=== PATIENT | male | born 1935 | race Caucasian/White ===

== ENCOUNTER → 2019-10-29 14:33 | Outpatient (CLI) | payer MEDICARE, SELFPAY ==
--- NOTE | 2019-10-29 14:37 | CT_ITS ---
PROCEDURE: CT ABDOMEN PELVIS WO CON CLINICAL INDICATION: GROSS HEMATURIA COMPARISON: No exams were available for comparison TECHNIQUE: Axial images obtained with sagittal and coronal reformats. All CT scans at the facility use one or more dose reduction, viz: automated exposure control, ma/kV adjustment per patient size (including targeted exams where dose is matched to indication, i.e. head), or iterative reconstruction technique. FINDINGS: LOWER THORAX: There are atelectatic changes in the right lower lobe the. 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 Normal heart size. Diaphragmatic calcifications are present on the right and there is pleural thickening and calcification in the right hemithorax posteriorly. ABDOMEN & PELVIS: Post cholecystectomy change. The liver, spleen, adrenal glands, and pancreas have an unremarkable unenhanced appearance. There is nonobstructing stone versus vascular calcification in the lower pole of the left kidney at 4 mm. A small hyperdense exophytic nodules present in the superior pole of the right kidney at 5 mm. No hydronephrosis. No ureteral calculi. There is a small left-sided bladder diverticulum posterior laterally at 3 cm. There is a small umbilical hernia containing fat. No intestinal obstruction or free air. There is diverticulosis of the descending and sigmoid colon but no evidence of diverticulitis. There is a mild amount of retained colonic feces. The appendix is not clearly delineated. There is mild dilatation of the infrarenal abdominal aorta measuring up to 2.9 cm. Degenerative changes are present in the lumbar spine with mild lumbar scoliosis convex right. IMPRESSION: 1. Right-sided diaphragmatic and pleural calcification with right basilar atelectasis. 2. Nonobstructing left renal stone versus intrarenal vascular calcification. 3. 5 mm hyperdense nodule right kidney superiorly and could be due to small hyperdense cyst. Ultrasound may confirm. 4. 3 cm left-sided bladder diverticulum. 5. Other nonacute findings as described above. Or Dictated by: Prakash Walker MD 10/30/2019 06:17 Electronically signed by Prakash Walker MD in [facility] 10/30/2019 06:17
== END ==
PROVIDERS: PCP Internal Medicine Adolescent Medicine; Visit Provider Internal Medicine Adolescent Medicine
DX: R31.0 Gross hematuria (principal)
CPT/HCPCS: 74176

== ENCOUNTER → 2019-12-24 11:41 | Outpatient (CLI) | payer MEDICARE, SELFPAY ==
--- NOTE | 2019-12-24 12:00 | XR_ITS ---
PROCEDURE: XR CHEST 2V CLINICAL HISTORY: Cough, tobacco use COMPARISON: CT ABDOMEN PELVIS WO CON from 10/29/2019 FINDINGS: Prior median sternotomy. Biventricular and right atrial pacemaker is present. A stent graft is present within the proximal ascending aorta. There is increased density in the right lower lobe suggesting atelectasis or infiltrate. There is pleural thickening and pleural calcification in the right lung base is well. Right-sided diaphragmatic calcification noted. There is increased density in the left lung base felt to be related overlying pleural thickening or fat pad. No acute bony abnormalities. IMPRESSION: 1. Chronic changes with right lower lobe infiltrate with chronic right-sided pleural thickening and calcification and right-sided diaphragmatic calcification. 2. Prior median sternotomy with pacemaker present and aortic stent graft present Dictated by: Prakash Walker MD 12/24/2019 12:41 Electronically signed by Prakash Walker MD in [facility] 12/24/2019 12:41
== END ==
PROVIDERS: PCP Internal Medicine Adolescent Medicine; Visit Provider Internal Medicine Adolescent Medicine
DX: R05 Cough (principal)
CPT/HCPCS: 71046

== ENCOUNTER → 2020-01-31 17:33 | Outpatient (CLI) | payer MEDICARE, SELFPAY | PROVIDERS: Visit Provider Urology | DX: N39.0 Urinary tract infection, site not specified (principal) | CPT/HCPCS: 87086; 87088; 87186 ==

== ENCOUNTER → 2020-03-10 16:00 | Outpatient (CLI) | payer MEDICARE, SELFPAY | PROVIDERS: Visit Provider Urology | DX: R33.9 Retention of urine, unspecified (principal) | CPT/HCPCS: 87086; 87088; 87186 ==

== ENCOUNTER → 2020-07-07 16:14 | Outpatient (CLI) | payer MEDICARE, SELFPAY | PROVIDERS: Visit Provider Urology | DX: N39.0 Urinary tract infection, site not specified (principal) | CPT/HCPCS: 87086; 87088; 87186 ==

== ENCOUNTER 2020-07-28 09:50 | Emergency (ER) | payer MEDICARE, SELFPAY ==
[2020-07-28 10:03] VITALS: BP 160/65; PULSE 70; RESP 19; TEMP 36.8; O2SAT 94; BMI 29.6
[2020-07-28 10:10] VITALS: BP 160/65; PULSE 70; RESP 19; TEMP 36.8; O2SAT 94; BMI 29.5
[2020-07-28 10:36] LABS: Apearance,Urine Clear (Clear); Color,Urine Yellow (Yellow)
[2020-07-28 10:37] LABS: Protein,Urine 1+ (Negative); Specific Gravity, Urine 1.015 (1.005-1.030)
[2020-07-28 10:38] LABS: Bilirubin,Urine Negative (Negative); Blood, Urine 1+ (Negative); Glucose,Urine (UA) 1+ (Negative); Ketones,Urine Negative (Negative); Urobilinogen,Urine 1 EU/dl (0.2)
--- NOTE | 2020-07-28 10:38 | HMH.EDUTC ---
[facility] [place]ression: Complicated urinary tract infection Disposition: Home, Self-Care Condition on Discharge: Good Instructions: Urinary Tract Infection, DI for Urinary Tract Infection (UTI) Additional Instructions: Drink plenty of fluids. Take tylenol for pain or fever. Return if you begin to have difficulty breathing. Follow up with your regular doctor. GO TO THE ER FOR ANY WORSENING SYMPTOMS Prescriptions: Doxycycline Hyclate [Doxycycline 100mg Capsule] 100 mg PO Q12 10 Days #20 cap Transmission Status: Received by [facility] #[id number] Phenazopyridine HCl [Pyridium 200mg Tablet] 200 pow PO TID #6 tab Transmission Status: Received by [facility] #[id number] Referrals: Abel Thornton MD [Primary Care Provider] - Time of Disposition: 10:47 Medical Decision Making - Medical Records Medical records reviewed: No: I reviewed the patient's medical records. - Rj Inquiry Pt receiving controlled substance: No Vital Signs: 07/28/20 10:03 07/28/20 10:10 07/28/20 11:07 Temperature 98.3 F 98.3 F 98.3 F Temperature Source Oral Oral Pulse Rate 70 Pulse Rate [Left Radial] 70 70 Respiratory Rate 19 19 19 Blood Pressure 160/65 H Blood Pressure [Right Arm] 160/65 H 160/65 H Blood Pressure Mean [Right Arm] 96 96 Blood Pressure Source [Right Arm] Automatic Cuff Automatic Cuff Blood Pressure Position [Right Arm] Sitting Sitting 02 Sat by Pulse Oximetry 94 L 94 L Oxygen Delivery Method Room Air Room Air - Lab Data Lab results reviewed: Yes: I reviewed the patient's lab results. Lab Results 07/28/20 10:34: Urine Color Yellow, Urine Appearance Clear, Urine pH 7.0, Ur Specific [place] 1.015, Urine Protein 1+, Urine Glucose (UA) 1+, Urine Ketones Negative, Urine Blood 1+, Urine Nitrate Positive A, Urine Bilirubin Negative, Urine Urobilinogen 1, Ur Leukocyte Esterase 1+ A Orders (Tests/Meds): ORDERS Category Date Time Status Urine Culture Stat Micro 07/28/20 10:15 [place] [facility] [place] - General Stated complaint: kidney and bowel problems Time Seen by Provider: 07/28/20 10:38 Mode of Arrival: Ambulatory Source of Information: Patient Limitations: No Limitations Description of Symptoms (Recalled from Triage Doc. by RN): c/o constipation and kidney infection. States the burning with urination about a week ago. Tried OTC AZO for his kidneys but not help - History of Present Illness Provider Complaint: He states that for the past 3 days he has been having urinary frequency and dysuria. He has had lots of trouble recently with UTI's. He is followed by Dr. Pollard (urology). He last finished antibiotics for a uti around 1 month ago. He denies any fever or chilling. He also was c/o constipation for the past 4 days, but when he went to give a urine specimen for this visit, he had a bowel movement also. - Related Data Home Medications Medication Instructions Recorded Confirmed albuterol sulfate 90 mcg/actuation 1 inh INHALATION ONCE PRN each 11/01/19 07/07/20 breath activated powder inhaler,sensor budesonide-formoterol HFA 160 2 puff INHALATION BID 11/01/19 07/07/20 mcg-4.5 mcg/actuation aerosol inhaler dicyclomine 10 mg capsule 10 mg PO BID 11/01/19 07/07/20 dutasteride 0.5 mg capsule 0.5 mg PO DAILY 11/01/19 07/07/20 esomeprazole magnesium 40 mg 40 mg PO DAILY 11/01/19 07/07/20 capsule,delayed release famotidine 20 mg tablet 20 mg PO DAILY 11/01/19 07/07/20 ipratropium 0.5 mg-albuterol 3 mg 3 ml INHALATION Q6H PRN 11/01/19 07/07/20 (2.5 mg base)/3 mL nebulization soln montelukast 10 mg tablet 10 mg PO DAILY 11/01/19 07/07/20 nebivolol 5 mg tablet 5 mg PO DAILY 11/01/19 07/07/20 nitroglycerin 0.4 mg sublingual 0.4 mg SUBLINGUAL Q5M PRN 11/01/19 07/07/20 tablet ondansetron HCl 4 mg tablet 4 mg PO Q8H 11/01/19 07/07/20 rosuvastatin 20 mg tablet 20 mg PO DAILY 11/01/19 07/07/20 tamsulosin 0.4 mg capsule 0.4 mg PO DAILY
[2020-07-28 10:39] LABS: UTC Leukocyte Esterase,Urine 1+ (Negative); UTC Nitrate,Urine Positive (Negative)
[2020-07-28 11:07] VITALS: BP 160/65; PULSE 70; RESP 19; TEMP 36.8; O2SAT 94
== END 2020-07-28 11:11 | disposition home or self-care (01) ==
PROVIDERS: Emergency Provider Nurse Practitioner Family; PCP Emergency Medicine
DX: N30.00 Acute cystitis without hematuria (principal); K59.00 Constipation, unspecified; I10 Essential (primary) hypertension; Z95.0 Presence of cardiac pacemaker; Z79.899 Other long term (current) drug therapy; Z88.1 Allergy status to other antibiotic agents; Z88.2 Allergy status to sulfonamides; Z88.8 Allergy status to other drugs, medicaments and biological substances
CPT/HCPCS: G0463; 81003; 87086; 87088; 87186; 99201

== ENCOUNTER → 2020-10-24 15:26 | Outpatient (CLI) | payer MEDICARE, SELFPAY ==
[2020-10-24 16:53] LABS: Basophils % 0.4 % (0.1-2.0); Eosinophils # 0.2 K/mm3 (0.0-0.4); Eosinophils % 3.5 % (0.1-12.0); Hematocrit 37.5 % (42.0-52.0); Hemoglobin 11.8 g/dL (14.1-18.0); Lymphocytes # 1.5 K/mm3 (0.7-4.5); Lymphocytes % 23.2 % (10-50); Mean Corpuscular HGB Conc 31.4 g/dL (31.8-35.4); Mean Corpuscular Hemoglobin 30.3 pg (27.0-31.2); Mean Corpuscular Volume 96.5 fl (80-94); Mean Platelet Volume 9.3 fl (7.4-10.4); Monocytes # 0.8 K/mm3 (0.1-1.0); Neutrophils % 60.8 % (37.0-80.0); Platelet Count 155 K/mm3 (142-424); Red Blood Count 3.88 M/mm3 (4.60-6.20); Red Cell Distribution Width 13.2 % (11.5-17.5); White Blood Count 6.5 K/mm3 (4.8-10.8)
[2020-10-24 16:56] LABS: Alanine Aminotransferase 13 U/L (12-78); Albumin Level 3.9 g/dl (3.5-5.0); Albumin/Globulin Ratio 1.3 (1.1-1.8); Alkaline Phosphatase 51 U/L (38-126); Anion Gap 6.5 mEq/L (5-15); Aspartate Amino Transferase 27 U/L (17-59); Bilirubin,Total 0.7 mg/dl (0.2-1.3); Blood Urea Nitrogen 14 mg/dl (9-20); Calcium 9.4 mg/dl (8.4-10.2); Carbon Dioxide 32 mmol/L (22.0-30.0); Chloride 103 mmol/L (98-107); Chol/HDL Ratio 2.4 (1-3.5); Cholesterol 129 mg/dl (140-200); Estimated Glomerular Filt Rate 63 ml/min (>60); GFR (African American) 77 ML/MIN (>60); Globulin 2.9 g/dL (1.3-3.2); Glucose 98 mg/dl (74-100); HDL Cholesterol 54 mg/dl (40-60); Potassium 4.5 mmoL/L (3.5-5.1); Sodium 137 mmol/L (136-145); Total Protein,Serum 6.8 g/dl (6.3-8.2); Triglycerides 139 mg/dl (30-150); VLDL Cholesterol 28 mg/dL (0-40)
[2020-10-24 17:07] LABS: Direct LDL Cholesterol 40.85 mg/dL (100-129)
[2020-10-24 17:28] LABS: Thyroid Stimulating Hormone 0.98 uIU/mL (0.465-4.68)
[2020-10-27 10:22] LABS: Prostate Specific Ag Screen 0.4 ng/ml (0.0-4.0)
== END ==
PROVIDERS: Visit Provider Family Medicine
DX: L60.3 Nail dystrophy (principal); R39.9 Unspecified symptoms and signs involving the genitourinary system; Z12.5 Encounter for screening for malignant neoplasm of prostate; E66.3 Overweight; Z79.899 Other long term (current) drug therapy; Z68.28 Body mass index [BMI] 28.0-28.9, adult
CPT/HCPCS: 80053; 80061; 84436; 84443; 85025; 87086; 87088; 87186; G0103

== ENCOUNTER → 2021-01-19 13:52 | Outpatient (CLI) | payer MEDICARE, SELFPAY | PROVIDERS: Visit Provider Family Medicine | DX: N39.0 Urinary tract infection, site not specified (principal) | CPT/HCPCS: 87086; 87088; 87186 ==

== ENCOUNTER → 2021-01-27 14:29 | Outpatient (CLI) | payer MEDICARE, SELFPAY ==
--- NOTE | 2021-01-27 14:29 | US_ITS ---
PROCEDURE: US KIDNEY CLINICAL INDICATION: COMPARISON: No exams were available for comparison FINDINGS: The right kidney is [id number]. No hydronephrosis, cortical thinning, or renal mass or perinephric fluid collection is evident. The left kidney is [id number]. No hydronephrosis, cortical thinning, or renal mass or perinephric fluid collection is evident. IMPRESSION: Unremarkable bilateral renal ultrasound Dictated by: Prakash Walker MD 01/27/2021 18:14 Prakash Walker MD in [facility] 01/27/2021 18:14
== END ==
PROVIDERS: PCP Family Medicine; Visit Provider Family Medicine
DX: N39.0 Urinary tract infection, site not specified (principal)
CPT/HCPCS: 76770

== ENCOUNTER 2021-04-04 04:33 | Emergency (ER) | payer MEDICARE, SELFPAY ==
[2021-04-04 04:49] VITALS: BP 142/70; PULSE 70; RESP 18; TEMP 36.6; O2SAT 97; BMI 29.6
--- NOTE | 2021-04-04 05:15 | PC.NURSE ---
I placed a 14 fr Coude catheter in pt after prepping urethra with a Urojet, a great amount of resistance was met when reaching the prostate, after getting around the prostate the pt had about 400cc output of clear pale urine, 5cc of saline was placed in balloon. Pt tolerated procedure well.
[2021-04-04 05:25] LABS: Microscopic, Urine URINE MICROSCOPIC (MICROSCOPIC)
[2021-04-04 05:30] LABS: Appearance,Urine CLEAR (Clear); Bilirubin,Urine Negative (Negative); Blood, Urine 1+ (Negative); Color,Urine YELLOW (Yellow); Glucose,Urine (UA) Negative (Negative); Ketones,Urine Negative (Negative); Leukocyte Esterase,Urine Negative (Negative); Nitrate,Urine Negative (Negative); Protein,Urine Negative (Negative); Urobilinogen,Urine 0.2 EU/dl (0.2)
[2021-04-04 05:31] VITALS: BP 149/74; PULSE 70; RESP 18; O2SAT 95
[2021-04-04 05:34] LABS: Amorphous Sediment,Urine Trace /lpf; WBC,Urine Occasional #/hpf (0-3)
--- NOTE | 2021-04-04 05:35 | HMH.EDGENADL ---
ED Disposition Clinical Impression: Acute retention of urine BPH (benign prostatic hyperplasia) Qualifiers: Lower urinary tract symptom presence: symptoms present Lower urinary tract symptom detail: urinary retention Qualified Code(s): N40.1 - Benign prostatic hyperplasia with lower urinary tract symptoms; R33.8 - Other retention of urine Disposition: Home, Self-Care Condition on Discharge: Good Instructions: DI for Urinary Tract Infection (UTI), DI for Urinary Tract Infection in Children Additional Instructions: Follow-up with urology Tuesday. Leave catheter in place until you see the urologist. Return to the emergency department for any new or worsening symptoms. Referrals: Ronny Vazquez MD [Primary Care Provider] - Neil Pollard MD [Staff Physician] - - Critical Care Critical Care Time: No Attestation: On 04/04/21, the high probability of a clinically significant, sudden or life threatening deterioration of the following system(s) required my full and direct attention, intervention and personal management. The time I documented below is in addition to time spent performing reported procedures but includes the following listed in this critical care notation. Medical Decision Making - Rj Inquiry Pt receiving controlled substance: No Vital Signs: 04/04/21 04:49 04/04/21 05:31 04/04/21 06:12 Temperature 97.9 F Temperature Source Oral Pulse Rate 70 70 Pulse Rate [Right] 70 Respiratory Rate 18 18 17 Blood Pressure 149/74 H 158/78 H Blood Pressure [Right Arm] 142/70 H Blood Pressure Mean [Right Arm] 94 Blood Pressure Source Automatic Cuff Automatic Cuff Blood Pressure Source [Right Arm] Automatic Cuff Blood Pressure Position Supine Supine Blood Pressure Position [Right Arm] Sitting 02 Sat by Pulse Oximetry 97 95 95 Oxygen Delivery Method Room Air Room Air Room Air - Lab Data Lab Results 04/04/21 05:15: Urine Color Yellow, Urine Appearance Clear, Urine pH 6.0, Ur Specific [place] 1.010, Urine Protein Negative, Urine Glucose (UA) Negative, Urine Ketones Negative, Urine Blood 1+, Urine Nitrate Negative, Urine Bilirubin Negative, Urine Urobilinogen 0.2, Ur Leukocyte Esterase Negative, Urine RBC 5-10, Urine WBC Occasional, Amorphous Sediment Trace Medical Decision Narrative: The patient is an 85-year-old male who presents to the emergency department with lower abdominal pain and difficulty urinating. Differential diagnosis includes urinary retention, UTI, enlarged prostate. Given this plan to obtain urinalysis and place catheter. Urinalysis showed no evidence of infection. According to nurse catheter placement was difficult likely related to enlarged prostate however the catheter was able to be placed and he had over 450 mL of urine. On reassessment the patient had complete resolution of symptoms. He had no tenderness to palpation of his abdomen. He felt comfortable with discharge at this time. He will leave the catheter in place and follow-up with urology on Tuesday. He was given return precautions and discharge. General Adult HPI - General Chief complaint: Urogenital-Male Stated complaint: Can't urinate Time Seen by Provider: 04/04/21 04:50 Mode of Arrival: Ambulatory Source of Information: Patient Limitations: No Limitations Description of Symptoms (Recalled from ER Triage Doc. by RN): Pt states he has not urinated for 8-10 hours and feel full. Pt has hx of Prostate problems and see's Dr Pollard on occation. - History of Present Illness HPI narrative: An 85-year-old male presents to the emergency department with difficulty urinating. The patient has known enlarged prostate and reports that he sees urology here. He reports that he has not urinated in about 8 to 10 hours and reports that even then he was having just dribbling. He reports suprapubic abdominal pain and back pain. He reports last night he was having similar pain and thought he was constipated so gave himself an e
[2021-04-04 06:12] VITALS: BP 158/78; PULSE 70; RESP 17; O2SAT 95
[2021-04-04 07:50] VITALS: BP 152/78; PULSE 74; RESP 16; TEMP 36.6; O2SAT 96
--- NOTE | 2021-04-04 07:50 | PC.NURSE ---
leg bag applied
== END 2021-04-04 07:51 | disposition home or self-care (01) ==
PROVIDERS: Emergency Provider Emergency Medicine; PCP Family Medicine
DX: N40.1 Benign prostatic hyperplasia with lower urinary tract symptoms (principal); R33.8 Other retention of urine; K21.9 Gastro-esophageal reflux disease without esophagitis; J44.9 Chronic obstructive pulmonary disease, unspecified; I25.10 Atherosclerotic heart disease of native coronary artery without angina pectoris; I10 Essential (primary) hypertension; Z95.0 Presence of cardiac pacemaker; Z87.891 Personal history of nicotine dependence; Z88.2 Allergy status to sulfonamides; Z88.8 Allergy status to other drugs, medicaments and biological substances
CPT/HCPCS: 81001; 99283

== ENCOUNTER → 2021-04-15 10:15 | Outpatient (CLI) | payer MEDICARE, SELFPAY | PROVIDERS: Visit Provider Urology | DX: R33.9 Retention of urine, unspecified (principal); Z01.812 Encounter for preprocedural laboratory examination; Z20.822 Contact with and (suspected) exposure to COVID-19; U07.1 COVID-19 | CPT/HCPCS: U0003 ==

== ENCOUNTER → 2021-04-27 15:47 | Outpatient (CLI) | payer MEDICARE, MEDICAID, SELFPAY | PROVIDERS: Visit Provider Family Medicine | DX: R33.8 Other retention of urine (principal) | CPT/HCPCS: 87086; 87186 ==

== ENCOUNTER → 2021-06-02 15:22 | Outpatient (CLI) | payer MEDICARE, SELFPAY | LOC: LAB 15:22 → LAB.DROPOF 15:25 | PROVIDERS: Visit Provider Urology | DX: N39.0 Urinary tract infection, site not specified (principal); B95.2 Enterococcus as the cause of diseases classified elsewhere | CPT/HCPCS: 87086; 87186 ==

== ENCOUNTER 2021-06-22 08:22 | Day surgery (SDC) | payer MEDICARE, MEDICAID, SELFPAY ==
[2021-06-16 09:41] VITALS: BMI 28.1
[2021-06-22 08:39] VITALS: BP 140/67; PULSE 70; RESP 18; TEMP 36.3; O2SAT 93
[2021-06-22 10:01] VITALS: BP 159/78; PULSE 70; RESP 18; TEMP 36.5; O2SAT 95
--- NOTE | 2021-06-22 11:07 | HMH.OPNOTE ---
Date of procedure: 06/22/21 Pre-op Diagnosis:: Recurrent urinary tract infections Post-op Diagnosis:: Recurring urinary tract infection/BPH with obstruction Procedure performed:: Cystoscopy Surgeon:: Neil Pollard MD Anesthesia: local Estimated blood loss (mL): 0 Clinical Note:: 85-year-old white male with recurring urinary tract infections. Operative findings:: Cystoscopy reveals no evidence of urethral strictures. Prostatic urethra shows trilobar hyperplasia the bladder has chronic obstructive changes with severe trabeculation. There was sediment in the bladder base. Operative note:: Patient taken to the cystoscopy suite after informed consent was obtained. On the stretcher he was prepped draped in the standard surgical fashion and 2% lidocaine placed into the urethra. After 5 minutes the clamp was removed and the flexible cystoscope introduced into the urethral meatus. The scope passed to the prostatic urethra which showed trilobar hyperplasia. The bladder was entered and examined in a systematic fashion. There was sediment in the base of the bladder and the bladder showed severe trabeculation throughout the base of the bladder. There is no evidence of stones or diverticula. The ureteral orifices in their normal anatomic position with clear efflux of urine. The scope removed patient tolerated the procedure well. We discussed the findings in recovery room. We discussed operative intervention with TURP versus nonsurgical measures including prophylactic antibiotics. Patient is elderly and with some comorbidities. We decided upon prophylactic antibiotics and a prescription for cefdinir for 1 week was given and we will then continue prophylactic nitrofurantoin 50 mg a day. Patient is to return if he should have any urinary symptoms. Condition: stable Disposition: same day Specimens:: None Complications:: None
== END 2021-06-22 10:11 | disposition home or self-care (01) ==
LOC: OUTP 08:25
PROVIDERS: PCP Family Medicine; Visit Provider Urology
DX: N40.1 Benign prostatic hyperplasia with lower urinary tract symptoms (principal); R33.9 Retention of urine, unspecified; R35.0 Frequency of micturition; E11.9 Type 2 diabetes mellitus without complications; E78.5 Hyperlipidemia, unspecified; I25.10 Atherosclerotic heart disease of native coronary artery without angina pectoris; Z95.1 Presence of aortocoronary bypass graft; Z88.2 Allergy status to sulfonamides; Z88.8 Allergy status to other drugs, medicaments and biological substances; Z88.1 Allergy status to other antibiotic agents; Z79.899 Other long term (current) drug therapy; Z87.440 Personal history of urinary (tract) infections
CPT/HCPCS: 52000

== ENCOUNTER → 2021-09-21 13:23 | Outpatient (CLI) | payer MEDICARE, SELFPAY | PROVIDERS: PCP Family Medicine; Visit Provider Internal Medicine Pulmonary Disease | DX: R06.09 Other forms of dyspnea (principal); G47.34 Idiopathic sleep related nonobstructive alveolar hypoventilation | CPT/HCPCS: 94762 ==

== ENCOUNTER → 2021-10-01 12:17 | Outpatient (CLI) | payer MEDICARE, SELFPAY ==
[2021-10-01 13:00] LABS: Chloride 103 mmol/L (98-107); Potassium 4.6 mmoL/L (3.5-5.1); Sodium 133 mmol/L (136-145)
[2021-10-01 13:03] LABS: Alanine Aminotransferase 14 U/L (12-78); Albumin/Globulin Ratio 1.4 (1.1-1.8); Alkaline Phosphatase 52 U/L (38-126); Anion Gap 8.6 mEq/L (5-15); Aspartate Amino Transferase 31 U/L (17-59); Bilirubin,Total 1.2 mg/dl (0.2-1.3); Blood Urea Nitrogen 16 mg/dl (9-20); Calcium 8.9 mg/dl (8.4-10.2); Carbon Dioxide 26 mmol/L (22.0-30.0); Estimated Glomerular Filt Rate 71 ml/min (>60); GFR (African American) 86 ML/MIN (>60); Globulin 2.9 g/dL (1.3-3.2); Glucose 86 mg/dl (74-100); Iron 133 ug/dL (49-181); Total Protein,Serum 6.9 g/dl (6.3-8.2)
== END ==
PROVIDERS: Visit Provider Family Medicine
DX: E78.00 Pure hypercholesterolemia, unspecified (principal); D64.9 Anemia, unspecified; N39.0 Urinary tract infection, site not specified; B95.2 Enterococcus as the cause of diseases classified elsewhere
CPT/HCPCS: 80053; 83540; 84443; 87086; 87088; 87186

== ENCOUNTER → 2022-02-11 09:27 | Outpatient (CLI) | payer MEDICARE, SELFPAY ==
--- NOTE | 2022-02-11 09:32 | XR_ITS ---
FINAL REPORT CLINICAL HISTORY: LUMBAGO W/ SCIATICA LT SIDE FINDINGS: LUMBAR SPINE 5 views of the lumbar spine were obtained. There is no evidence of fracture or dislocation. There is dextroscoliosis. There is moderate and severe degenerative change. There is vacuum disc phenomenon at several levels. There is a 3.5 cm abdominal aortic aneurysm. There is moderate vascular calcification. IMPRESSION: Moderate and severe degenerative change. 3.5 cm abdominal aortic aneurysm. Reviewed, Interpreted and Dictated by Scooby George III, MD Transcribed by Yola Kiarn Authenticated and [facility]
== END ==
PROVIDERS: PCP Family Medicine; Visit Provider Family Medicine
DX: M54.42 Lumbago with sciatica, left side (principal)
CPT/HCPCS: 72110

== ENCOUNTER → 2022-03-10 09:45 | Outpatient (CLI) | payer MEDICARE, SELFPAY ==
[2022-03-10 10:35] VITALS: PULSE 69; PULSE 70
[2022-03-10 11:00] VITALS: BP 155/78; PULSE 70; RESP 18; O2SAT 97
[2022-03-10 11:10] VITALS: BP 160/82; PULSE 70; RESP 22; O2SAT 96
== END ==
PROVIDERS: PCP Family Medicine; Visit Provider Internal Medicine Pulmonary Disease
DX: R06.00 Dyspnea, unspecified (principal)
CPT/HCPCS: 94060; 94618; 94640; 94727; 94729

== ENCOUNTER → 2022-05-07 17:04 | Outpatient (CLI) | payer MEDICARE, SELFPAY | PROVIDERS: Visit Provider Urology | DX: N40.1 Benign prostatic hyperplasia with lower urinary tract symptoms (principal); R33.8 Other retention of urine; B95.2 Enterococcus as the cause of diseases classified elsewhere | CPT/HCPCS: 87086; 87088; 87186 ==

== ENCOUNTER → 2022-07-23 13:36 | Outpatient (CLI) | payer MEDICARE, SELFPAY ==
--- NOTE | 2022-07-23 13:42 | XR_ITS ---
FINAL REPORT CLINICAL HISTORY: Acute cough and congestion COMPARISON: 12/24/2019 FINDINGS: A single view of the chest was obtained. The heart is enlarged. The patient is status post median sternotomy. A left subclavian pacemaker is present. There are worsening bibasilar opacities, favor atelectasis over pneumonia. There is no pneumothorax. There is no acute osseous abnormality. IMPRESSION: Worsening bibasilar opacities favored to represent atelectasis over pneumonia. Reviewed, Interpreted and Dictated by Scooby George III, MD Transcribed by Janice Zepeda Authenticated and [facility]
== END ==
PROVIDERS: PCP Family Medicine; Visit Provider Physician Assistant
DX: Z20.822 Contact with and (suspected) exposure to COVID-19 (principal)
CPT/HCPCS: 71045

== ENCOUNTER 2022-07-26 15:44 | Inpatient (IN) | payer MEDICARE, MEDICAID, SELFPAY ==
[2022-07-26] VITALS (9 sets, daily range): BP systolic 141–181; BP diastolic 78–90; PULSE 69–78; RESP 16–17; TEMP 36.6–36.8; O2SAT 92–97; BMI 28.1; BMI 27.3
--- NOTE | 2022-07-26 16:00 | XR_ITS ---
FINAL REPORT CLINICAL HISTORY: soa FINDINGS: PORTABLE CHEST Patient is status post CABG and aortic valve repair. A left subclavian pacemaker is present. There is mild cardiomegaly. The mediastinum is unremarkable. Pulmonary vascularity is normal with left lung clear. There are multifocal opacities in the right lung which may be due to a partially loculated right pleural effusion, less likely a mass. There is no pneumothorax. IMPRESSION: Right basilar opacities with differential of loculated pleural effusion versus less likely mass. Follow-up CT may be helpful to further differentiate. Reviewed, Interpreted and Dictated by Abe Andrew MD Transcribed by Yola Kiran Authenticated and [facility]
--- NOTE | 2022-07-26 16:02 | HMH.EDGENADL ---
Discharge Plan Prescriptions Prescriptions: No Action esomeprazole magnesium [Nexium] 40 mg capsule,delayed release(DR/EC) 40 mg PO DAILY nitroglycerin [Nitrostat] 0.4 mg tablet, sublingual 0.4 mg SUBLINGUAL Q5M PRN (Reason: Chest Pain) Rx Instructions: until response; do not exceed 3 doses per episode montelukast [Singulair] 10 mg tablet 10 mg PO DAILY tamsulosin 0.4 mg capsule 0.4 mg PO DAILY ondansetron HCl [Zofran] 4 mg tablet 4 mg PO Q8H ipratropium bromide 42 mcg (0.06 %) spray,non-aerosol 2 spray INTRANASAL DAILY Label Comments: USE 1 TO 2 SPRAYS IN EACH NOSTRIL EVERY 6 HOURS NEEDED fluticasone propionate 50 mcg/actuation spray,suspension 1 spray INTRANASAL DAILY Label Comments: SHAKE LIQUID AND USE 1 SPRAY IN EACH NOSTRIL TWICE DAILY azelastine 137 mcg (0.1 %) aerosol,spray 1 spray NS BID Qty: 30 3RF Rx Instructions: administer into each nostril budesonide-formoterol [Symbicort] 160-4.5 mcg/actuation HFA aerosol inhaler 2 puff INHALATION BID 90 Days Qty: 10.2 3RF albuterol sulfate 90 mcg/actuation HFA aerosol inhaler 1 inh INHALATION Q6H PRN (Reason: shortness of breath or wheezing) 90 Days Qty: 8.5 3RF cefdinir 300 mg capsule 300 mg PO BID Qty: 14 0RF nitrofurantoin macrocrystal 50 mg capsule 50 mg PO HS Qty: 90 3RF Rx Instructions: must administer with a meal/food promethazine-codeine 6.25-10 mg/5 mL syrup 5 ml PO Q4-6H PRN (Reason: cough) Qty: 118 3RF dutasteride [Avodart] 0.5 mg capsule 0.5 mg PO DAILY Qty: 90 3RF famotidine 20 mg tablet See Rx Instructions .Route .COMPLEX Qty: 90 10RF Rx Instructions: TAKE 1 TABLET BY MOUTH AT BEDTIME promethazine 25 mg tablet 25 mg PO TID PRN (Reason: nausea and vomiting) Qty: 30 3RF rosuvastatin [Crestor] 20 mg tablet 20 mg PO DAILY Qty: 90 0RF cefdinir 300 mg capsule 300 mg PO BID Qty: 14 1RF dicyclomine 10 MG capsule 10 mg PO BID PRN (Reason: STOMACH PAIN/DIARRHEA) nebivolol 2.5 MG tablet 2.5 mg PO BID Rx Instructions: TAKE 1 TABLET BY MOUTH TWICE DAILY. nitrofurantoin monohyd/m-cryst 100 MG capsule 100 mg PO Q12H Rx Instructions: must administer with a meal/food Referrals Follow up/Referrals: Provider,Referral, MD [Primary Care Provider] - See instructions Discharge ED Provider: Carlos Castillo General Adult HPI General Stated complaint: SOA Time Seen by Provider: 07/26/22 15:55 History of Present Illness HPI narrative: Patient presents complaining of 2-week history of worsening shortness of air. He has a history of COPD and historically has used oxygen at nighttime however for the last weeks has required [id number]. He denies chest pain. He has had a nonproductive cough. He denies fever he does note increased swelling to the legs and does have a history of CHF. Related Data Home Medications Medication Instructions Recorded Confirmed esomeprazole magnesium 40 mg 40 mg PO DAILY ACID REFLUX 11/01/19 07/15/22 capsule,delayed release (Nexium) montelukast 10 mg tablet 10 mg PO DAILY ALLERGIES 11/01/19 07/15/22 (Singulair) nitroglycerin 0.4 mg sublingual 0.4 mg sublingual Q5M PRN Chest 11/01/19 07/15/22 tablet (Nitrostat) Pain ondansetron HCl 4 mg tablet 4 mg PO Q8H NAUSEA/VOMITING 11/01/19 07/15/22 (Zofran) tamsulosin 0.4 mg capsule 0.4 mg PO DAILY URINATION 11/01/19 07/15/22 fluticasone propionate 50 1 spray intranasal DAILY ALLERGIES 10/08/20 07/15/22 mcg/actuation nasal spray,suspension ipratropium bromide 42 mcg (0.06 2 spray intranasal DAILY COPD 10/08/20 07/15/22 %) nasal spray dicyclomine 10 mg capsule 10 mg PO BID PRN STOMACH 06/16/21 07/15/22 PAIN/DIARRHEA nebivolol 2.5 mg tablet 2.5 mg PO BID BP 06/16/21 07/15/22 nitrofurantoin 100 mg PO Q12H BLADDER INFECTION 06/16/21 07/15/22 monohydrate/macrocrystals 100 mg PREVENTION capsule Previous
--- NOTE | 2022-07-26 16:13 | ECG_ITS ---
APPROVED REPORT Exam: Resting ECG HR:74 bpm ECG Measurements Heart Rate 74 AXES QRSd 145 QRS -73 QT 397 T 60 QTc 424 Conclusion ELECTRONIC VENTRICULAR PACEMAKER ABNORMAL RHYTHM ECG UNCONFIRMED REPORT Electronically signed by : Rajan Diamond MD 07/26/2022 21:07:29
--- NOTE | 2022-07-26 16:19 | PC.NURSE ---
Resp at bedside
[2022-07-26 16:48] LABS: Coronavirus 19, PCR Not Detected (NotDetected); Influenza A, PCR Not Detected (NotDetected); Influenza B, PCR Not Detected (NotDetected)
--- NOTE | 2022-07-26 17:06 | PC.NURSE ---
PT HAD 400CC OUT
--- NOTE | 2022-07-26 17:16 | PC.NURSE ---
rounded on pt at this time. No new needs. Pt resting in chair, updated on POC
[2022-07-26 17:18] LABS: Microscopic, Urine URINE MICROSCOPIC (MICROSCOPIC)
[2022-07-26 17:20] LABS: Alanine Aminotransferase 22 U/L (12-78); Albumin Level 3.9 g/dl (3.5-5.0); Albumin/Globulin Ratio 1.3 (1.1-1.8); Alkaline Phosphatase 94 U/L (38-126); Anion Gap 15.4 mEq/L (5-15); Aspartate Amino Transferase 34 U/L (17-59); Bilirubin,Total 0.5 mg/dl (0.2-1.3); Blood Urea Nitrogen 17 mg/dl (9-20); Calcium 9.5 mg/dl (8.4-10.2); Carbon Dioxide 30 mmol/L (22.0-30.0); Chloride 90 mmol/L (98-107); Creatinine Clearance Estimated 56 mL/min (50-200); Estimated Glomerular Filt Rate 63 ml/min (>60); GFR (African American) 77 ML/MIN (>60); Glucose 104 mg/dl (74-100); Potassium 4.4 mmoL/L (3.5-5.1); Sodium 131 mmol/L (136-145); Total Protein,Serum 6.9 g/dl (6.3-8.2)
[2022-07-26 17:24] LABS: Basophils % 0.4 % (0.1-2.0); Eosinophils # 0.1 K/mm3 (0.0-0.4); Hematocrit 32.2 % (42.0-52.0); Hemoglobin 10.3 g/dL (14.1-18.0); Lymphocytes # 1.6 K/mm3 (0.7-4.5); Lymphocytes % 17.6 % (10-50); Mean Corpuscular HGB Conc 32.1 g/dL (31.8-35.4); Mean Corpuscular Hemoglobin 30.7 pg (27.0-31.2); Mean Corpuscular Volume 95.7 fl (80-94); Mean Platelet Volume 8.4 fl (7.4-10.4); Monocytes # 0.9 K/mm3 (0.1-1.0); Monocytes % 10.6 % (1.7-9.3); Neutrophils # 6.3 K/mm3 (1.8-7.8); Neutrophils % 70.5 % (37.0-80.0); Platelet Count 223 K/mm3 (142-424); Red Blood Count 3.36 M/mm3 (4.60-6.20); Red Cell Distribution Width 13.6 % (11.5-17.5); White Blood Count 8.9 K/mm3 (4.8-10.8)
[2022-07-26 17:33] LABS: NT Pro Brain Natriuretic Pep. 2930 pg/mL (0-450)
[2022-07-26 17:34] LABS: Troponin I < 0.01 ng/ml (0.00-0.034)
[2022-07-26 17:54] LABS: Appearance,Urine CLEAR (Clear); Bilirubin,Urine Negative (Negative); Blood, Urine TRACE-I (Negative); Color,Urine YELLOW (Yellow); Glucose,Urine (UA) Negative (Negative); Ketones,Urine Negative (Negative); Leukocyte Esterase,Urine 2+ (Negative); Nitrate,Urine Negative (Negative); Protein,Urine Negative (Negative); Urobilinogen,Urine 0.2 EU/dl (0.2)
[2022-07-26 18:07] LABS: Bacteria,Urine 1+ /lpf; RBC,Urine Occasional #/hpf (0-3); WBC,Urine 20-50 #/hpf (0-3)
--- NOTE | 2022-07-26 18:42 | PC.NURSE ---
called report to [facility]
--- NOTE | 2022-07-26 19:24 | PC.NURSE ---
urinal emptied of 900ml
--- NOTE | 2022-07-26 20:35 | PC.NURSE ---
Pt arrived to floor via wheelchair @ 1957.
--- NOTE | 2022-07-26 22:30 | PC.NURSE ---
07/26/22 2230pm night watch pharmacist called regarding pt listed allergy to clarithromycin, pt not sure allergy but listed as mild, pharmacist states that there could be a cross sensitivity and to reach out to pcp for further instructions, pharmacist states that they are ok giving as long as pcp is ok with it and just watch for reactions, dr eagle was called and notified as written above, note new orders to d/c axithromycin and start levaquin 750mg iv after kidney functions levels were reviewed, tylenol was order 650mg q4h as needed for pain and fever greater than 100, repeated and verified.
[2022-07-27] VITALS (7 sets, daily range): BP systolic 113–152; BP diastolic 51–71; PULSE 70–77; RESP 16–18; TEMP 36.5–36.8; O2SAT 88–98; BMI 27.3
--- NOTE | 2022-07-27 05:55 | PC.NURSE ---
pt rested well, lung sounds diminished, 02 at 3.5L with 02 sats 96-97%, VSS, 3+ pitting edema to BLE, no acute distress, pt is alert and oriented x4.
[2022-07-27 07:26] LABS: Basophils % 0.1 % (0.1-2.0); Eosinophils % 0.5 % (0.1-12.0); Hematocrit 31.7 % (42.0-52.0); Hemoglobin 10.3 g/dL (14.1-18.0); Lymphocytes # 0.5 K/mm3 (0.7-4.5); Lymphocytes % 7.8 % (10-50); Mean Corpuscular HGB Conc 32.4 g/dL (31.8-35.4); Mean Corpuscular Hemoglobin 30.7 pg (27.0-31.2); Mean Platelet Volume 8.2 fl (7.4-10.4); Monocytes # 0.3 K/mm3 (0.1-1.0); Monocytes % 4.5 % (1.7-9.3); Neutrophils # 5.8 K/mm3 (1.8-7.8); Neutrophils % 87.2 % (37.0-80.0); Platelet Count 241 K/mm3 (142-424); Red Blood Count 3.34 M/mm3 (4.60-6.20); Red Cell Distribution Width 13.6 % (11.5-17.5); White Blood Count 6.7 K/mm3 (4.8-10.8)
[2022-07-27 07:30] LABS: MANUAL DIFFERENTIAL MANUAL DIFFERENTIAL (MANUAL DIFF)
[2022-07-27 07:36] LABS: Alanine Aminotransferase 23 U/L (12-78); Albumin Level 3.8 g/dl (3.5-5.0); Albumin/Globulin Ratio 1.2 (1.1-1.8); Alkaline Phosphatase 82 U/L (38-126); Anion Gap 19.2 mEq/L (5-15); Aspartate Amino Transferase 32 U/L (17-59); Bilirubin,Total 0.4 mg/dl (0.2-1.3); Blood Urea Nitrogen 21 mg/dl (9-20); Calcium 9.5 mg/dl (8.4-10.2); Carbon Dioxide 30 mmol/L (22.0-30.0); Chloride 88 mmol/L (98-107); Creatinine Clearance Estimated 55 mL/min (50-200); Estimated Glomerular Filt Rate 63 ml/min (>60); GFR (African American) 77 ML/MIN (>60); Globulin 3.1 g/dL (1.3-3.2); Glucose 116 mg/dl (74-100); Potassium 4.2 mmoL/L (3.5-5.1); Sodium 133 mmol/L (136-145); Total Protein,Serum 6.9 g/dl (6.3-8.2)
[2022-07-27 07:59] LABS: Lymphocytes % 8 % (10-50); Monocytes % 2 % (2-9); Neutrophils % 90 % (42-76); Total Cells Counted 100
[2022-07-27 08:00] LABS: Platelet Estimate Normal; RBC Morphology Normal
--- NOTE | 2022-07-27 08:26 | HMH.PHAINT1 ---
Pharmacy Intervention Comments: Medication reconciliation completed via external fill history, chart review, and patient interview. -Iman Santiago, PharmD Candidate 2022
--- NOTE | 2022-07-27 09:08 | EXP.HP ---
History of Present Illness *Admission Date: 07/27/22 *Reason for visit:: Increasing shortness of breath *History of present illness: Mr. Kiran is an 86-year-old male patient with a history of congestive heart failure, rheumatic fever, aortic stenosis status post TAVR in 2017, pacemaker, hyperlipidemia, asthma, GERD, peptic ulcer disease, irritable bowel syndrome, BPH, kidney disease, diverticulosis who was brought to [facility] emergency room for evaluation yesterday with progressive shortness of breath. He has been more short of breath the last 2 to 3 weeks and has been on a round of antibiotics without improvement. He has oxygen at home but only goes to 2 L/min which was not sufficient. He usually just wore oxygen at night but had to wear it continuously throughout the day. He denies having any chest pain. He had no fever. He had an occasional production with his cough. He was eating and drinking as usual. He had difficulty with ambulation due to the shortness of breath. With evaluation in the emergency room laboratory data this morning: White blood cell count is 6700 with a hemoglobin of 10.3 and hematocrit of 31.7. Sodium is 133 with a potassium of 4.2. BUN is 21 and creatinine is 1.1. BNP is 2930. Urinalysis shows trace of blood 2+ leuk esterase and 1+ bacteria with 20-50 white blood cells. COVID and flu test were negative. Chest x-ray showed right basilar opacities with differential of loculated pleural effusion versus less likely a mass. Follow-up CT might be helpful. This a.m. patient states he feels so much better. With increase in oxygen he immediately was less short of breath. He rested at intervals during the night. He has eaten a good breakfast. [facility] Medical History (Updated 07/27/22 @ 09:23 by Kathy Pulliam APRN) Arthritis GERD (gastroesophageal reflux disease) Hiatal hernia HTN (hypertension) Surgical History (Updated 07/26/22 @ 18:32 by Cate Pace RN) H/O hernia repair History of arthroplasty of right knee History of tonsillectomy Hx of cholecystectomy Family History (Updated 07/26/22 @ 18:32 by Cate Pace, GEOVANY) No significant family history Social History (Updated 07/26/22 @ 18:31 by Cate Pace RN) Smoking Status: Never smoker alcohol intake: never substance use type: denies use current occupational status: disabled Travel in the last 8 weeks: None household members: spouse housing: house current occupational exposures/hazards: No caffeine: Yes Review of Systems Constitutional Constitutional: Denies body ache(s), Denies fever(s), Denies frequent falls and Denies headache(s) Eyes Eyes: Denies change in vision ENT Ears, Nose, Mouth, and Throat: Denies otalgia, Denies headache(s) and Denies sore throat *Cardiovascular Cardiovascular: Denies chest pain and Reports dyspnea *Respiratory Respiratory: Reports change in phlegm color, Reports cough and Reports dyspnea *Gastrointestinal Gastrointestinal: Denies dyspepsia, Denies heartburn, Denies hematemesis, Denies loose stools, Denies melena, Denies nausea and Denies vomiting *Genitourinary Genitourinary: Denies difficulty urinating *Musculoskeletal Musculoskeletal: Denies abnormal gait and Reports arthralgias (Right knee) *Neurologic Neurologic: Denies abnormal gait, Denies confusion, Denies frequent falls and Denies headache(s) Psychiatric Psychiatric: Denies confusion Meds Home Medications and Allergies Home Medications Medication Instructions Recorded Confirmed Type esomeprazole magnesium 40 mg 40 mg PO DAILY ACID REFLUX 11/01/19 07/27/22 History capsule,delayed release (Nexium) montelukast 10 mg tablet 10 mg PO DAILY ALLERGIES 11/01/19 07/27/22 History (Singulair) nitroglycerin 0.4 mg sublingual 0.4 mg sublingual Q5M PRN Chest 11/01/19 07/27/22 History tablet (Nitrostat) Pain tamsulosin 0.4 mg capsule 0.4 mg PO DAILY URINATION 11/01/19 07/27/22 History fluticaso
[2022-07-27 10:09] LABS: Lactic Acid 1.1 mmol/L (0.7-2.1)
[2022-07-27 10:48] LABS: Mycoplasma Pneumo IGM (Rapid) Non-Reactive (Non-Reactiv)
--- NOTE | 2022-07-27 18:42 | PC.NURSE ---
pt has done well this shift. pt was on 2l o2 via nc and c/o of soa, increase o2 to 3l, tolerating well with no complaints. pts daughter brought home meds in, sent to pharmacy and returned back, sent home with daughter. pt has no c/o of pain or nausea this shift. no concerns voiced at this time.
[2022-07-28] VITALS (9 sets, daily range): BP systolic 119–150; BP diastolic 63–78; PULSE 70–83; RESP 16–20; TEMP 36.4–36.7; O2SAT 97–99; BMI 27.6
--- NOTE | 2022-07-28 06:44 | PC.NURSE ---
NO ACUTE CHANGES SINCE PREVIOUS ASSESSMENT. PT HAS NOT RESTED MUCH THIS SHIFT. LUNG SOUNDS ARE DIMINISHED. PT HAS C/O BEING HORT OF AIR X2 THIS SHIFT. ALBUTEROL INHALER ORDER RECEIVED PER MD PUENTES. NO C/O PAIN THIS SHIFT.
--- NOTE | 2022-07-28 08:24 | EXP.ACUTE.PN ---
Subjective *Date: 07/28/22 *Time: 09:15 Interval history: Patient states he had a horrible night. He could not breathe and had to have ox his oxygen turned up and was given nebulizer treatments. He states he feels a little bit better this morning. He is requesting his Symbicort be reordered. He has had more swelling in his legs. He did eat most of his breakfast. Medical Exam Vital signs and Labs for Last 24 Hours: Vital Signs Temp Pulse Pulse Resp BP Pulse Ox 07/28/22 05:51 77 07/28/22 05:51 82 07/28/22 05:51 97 07/28/22 04:00 97.6 F 70 20 142/78 H 99 07/28/22 00:00 97.8 F 71 20 119/69 97 07/27/22 20:00 97.8 F 70 18 125/71 97 07/27/22 15:28 98.3 F 74 17 150/71 H 98 07/27/22 11:41 77 07/27/22 11:41 75 07/27/22 11:41 88 L 07/27/22 11:35 98.2 F 73 16 152/68 H 88 L Intake and Output 07/27/22 07/28/22 07/28/22 19:59 03:59 11:59 Intake Total 600 / 840 240 / 840 Output Total 0 / 0 0 / 0 Balance 600 / 840 240 / 840 Intake: Intake, Oral Amount 600 / 840 240 / 840 Output: Output, Urine Amount 0 / 0 0 / 0 Other: Number of Unmeasured Voids 1 1 Weight 180 lb 1.883 oz 182 lb 9 oz Patient Weight 07/28/22 11:59 Weight 182 lb 9 oz Laboratory Results - last 24 hr 07/26/22 17:00: Urine Color Yellow, Urine Appearance Clear, Urine pH 6.0, Ur Specific [place] 1.010, Urine Protein Negative, Urine Glucose (UA) Negative, Urine Ketones Negative, Urine Blood Trace-i, Urine Nitrate Negative, Urine Bilirubin Negative, Urine Urobilinogen 0.2, Ur Leukocyte Esterase 2+ A, Urine RBC Occasional, Urine WBC 20-50, Ur Squamous Epith Cells 3-5, Urine Bacteria 1+ 07/27/22 09:37: Lactate 1.1 07/27/22 09:37: Mycoplasma pneumon IgM Non-reactive I & O for Labs for Last 24 Hours: Intake & Output 07/25/22 07/26/22 07/27/22 07/28/22 11:59 11:59 11:59 11:59 Intake Total 570 / 570 840 / 840 Output Total 0 / 0 0 / 0 Balance 570 / 570 840 / 840 Weight 180 lb 2 oz 182 lb 9 oz Microbiology Reports for the Last 24 Hours: Microbiology 07/26/22 17:00 Urine,Clean Catch Urine Culture - Preliminary Gram Positive Cocci 07/27/22 12:50 Sputum - Expectorated Sputum Gram Stain - Final Constitutional: Present no acute distress Respiratory: Present wheezes (Right base) Cardiac: Present Reg Rate and Rhythm GI: Present soft; Absent distention, tenderness or guarding Extremities: Present edema (Bilateral lower extremities) Skin: Present intact Assessment and Plan *Assessment and plan (1) Community acquired pneumonia: Status: Acute Category: Medical Code(s): J18.9 - Pneumonia, unspecified organism (2) Congestive heart failure: Status: Acute Category: Medical Code(s): I50.9 - Heart failure, unspecified (3) Urinary tract infection: Status: Acute Category: Medical Code(s): N39.0 - Urinary tract infection, site not specified (4) Coronary artery disease: Status: Acute Qualifiers: Associated angina: without angina Coronary Disease-Associated Artery/Lesion type: [place] artery [place] vs. transplanted heart: [place] heart Qualified Code(s): I25.10 - Atherosclerotic heart disease of [place] coronary artery without angina pectoris Category: Medical Code(s): I25.10 - Atherosclerotic heart disease of [place] coronary artery without angina pectoris (5) BPH (benign prostatic hyperplasia): Status: Acute Qualifiers: Lower urinary tract symptom detail: urinary retention Lower urinary tract symptom presence: symptoms present Qualified Code(s): N40.1 - Benign prostatic hyperplasia with lower urinary tract symptoms; R33.8 - Other retention of urine Category: Medical Code(s): N40.0 - Benign prostatic hyperplasia without lower urinary tract symptoms (6) Hyperlipidemia: Status: Acute Qualifie
--- NOTE | 2022-07-28 08:31 | CT_ITS ---
FINAL REPORT TECHNIQUE: After the administration of intravenous contrast, axial images through the chest were performed by computed tomography.This study was performed with techniques to keep radiation doses as low as reasonably achievable, (ALARA). Individualized dose reduction techniques using automated exposure control or adjustment of mA and/or kV according to the patient''s size were employed. CLINICAL HISTORY: effusion vs mass on CXR FINDINGS: There is suboptimal opacification of the vasculature. Streak artifact is seen in left upper anterior chest wall from pacemaker. Median sternotomy wires are present. There has been aortic valve replacement. There is extensive pleural calcification bilaterally, right greater than left. There is fluid loculated in the right major fissure. There is scarring at the right base. There is an aberrant right subclavian artery which is densely calcified. Limited images of the upper abdomen reveal the gallbladder to be absent. 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 Aberrant right subclavian artery. Fluid loculated in the right major fissure. Reviewed, Interpreted and Dictated by Kelvin Martell MD Transcribed by Kathy Mccauley Authenticated and [facility]
[2022-07-28 10:13] LABS: Prostate Specific Ag Screen 0.4 ng/ml (0.0-4.0)
--- NOTE | 2022-07-28 15:00 | ECG_ITS ---
APPROVED REPORT Exam: Resting ECG HR:78 bpm ECG Measurements Heart Rate 78 AXES QRSd 164 QRS -82 QT 400 T 81 QTc 434 Conclusion ELECTRONIC VENTRICULAR PACEMAKER ABNORMAL RHYTHM ECG INTERPRETATION BASED ON A DEFAULT AGE OF 40 YEARS UNCONFIRMED REPORT Electronically signed by : Rajan Diamond MD 07/29/2022 21:36:01
[2022-07-28 16:17] LABS: Creatine Kinase 144 U/L (55-170)
[2022-07-28 16:27] LABS: CKMB Relative Index 1.2 U/L (0-4.0); Creatine Kinase MB 1.7 ng/ml (0.0-2.03)
[2022-07-28 17:27] LABS: Troponin I 0.01 ng/ml (0.00-0.034)
--- NOTE | 2022-07-28 19:40 | PC.NURSE ---
PT HAS DONE WELL TODAY. PT HAD AN EPISODE OF CHEST PAIN, ELBERT NOTIFIED. EKG AND CARDIAC ENZYMES ORDERED. O2 INCREASED TO 3L, PER ELBERT, LEAVE PTS O2 ON 3L. TELE PLACED ON PT. DAUGHTER BROUGHT AN INHALERM LOCKED IN PERSONAL VEHICLE ADVISOR PTS ROOM. CB AND PERSONAL ITEMS WITHIN REACH. NO CONCERNS AT THIS TIME.
[2022-07-29] VITALS: BP 143/66; PULSE 78; RESP 14; TEMP 36.7; O2SAT 100
[2022-07-29 04:00] VITALS: BP 124/68; PULSE 70; PULSE 97; RESP 16; TEMP 36.9; O2SAT 91
[2022-07-29 08:00] VITALS: BP 173/76; PULSE 69; PULSE 72; RESP 17; TEMP 36.7; O2SAT 98
[2022-07-29 08:09] LABS: Basophils % 0.4 % (0.1-2.0); Eosinophils # 0.1 K/mm3 (0.0-0.4); Hematocrit 32.1 % (42.0-52.0); Hemoglobin 9.9 g/dL (14.1-18.0); Lymphocytes # 1.1 K/mm3 (0.7-4.5); Lymphocytes % 12.6 % (10-50); Mean Corpuscular HGB Conc 30.9 g/dL (31.8-35.4); Mean Corpuscular Hemoglobin 30.2 pg (27.0-31.2); Mean Corpuscular Volume 97.8 fl (80-94); Mean Platelet Volume 9.1 fl (7.4-10.4); Monocytes % 12.4 % (1.7-9.3); Neutrophils # 6.2 K/mm3 (1.8-7.8); Neutrophils % 73.5 % (37.0-80.0); Platelet Count 215 K/mm3 (142-424); Red Blood Count 3.29 M/mm3 (4.60-6.20); Red Cell Distribution Width 13.9 % (11.5-17.5); White Blood Count 8.4 K/mm3 (4.8-10.8)
[2022-07-29 08:10] LABS: Chloride 95 mmol/L (98-107); Sodium 130 mmol/L (136-145)
[2022-07-29 08:13] LABS: Blood Urea Nitrogen 20 mg/dl (9-20); Calcium 9.1 mg/dl (8.4-10.2); Carbon Dioxide 30 mmol/L (22.0-30.0); Creatinine Clearance Estimated 61 mL/min (50-200); Estimated Glomerular Filt Rate 71 ml/min (>60); GFR (African American) 86 ML/MIN (>60); Glucose 93 mg/dl (74-100)
--- NOTE | 2022-07-29 08:38 | EXP.ACUTE.PN ---
Subjective *Date: 07/29/22 *Time: 09:04 Interval history: Patient states he is feeling a little bit better this morning. His shortness of breath has improved and he has less wheezing. He does complain of some gas and constipation. He states he normally takes Nexium at home and probiotics. He has not had a bowel movement in about 4 days. Medical Exam Vital signs and Labs for Last 24 Hours: Vital Signs Temp Pulse Pulse Resp BP Pulse Ox 07/29/22 08:00 98.1 F 69 17 173/76 H 98 07/29/22 04:00 70 07/29/22 04:00 98.4 F 97 H 16 124/68 91 L 07/29/22 00:00 98.0 F 78 14 143/66 H 100 07/28/22 20:00 97 07/28/22 20:00 97.5 F L 74 16 150/74 H 97 07/28/22 20:00 70 07/28/22 18:50 98 07/28/22 16:00 98.1 F 74 18 141/71 H 99 07/28/22 12:00 97.7 F 80 20 132/69 97 07/28/22 11:26 83 07/28/22 11:26 78 07/28/22 11:26 98 Intake and Output 07/28/22 07/29/22 07/29/22 19:59 03:59 11:59 Intake Total 720 / 1020 300 / 1020 Output Total 1200 / 1570 370 / 1570 0 / 1570 Balance -480 / -550 -370 / -550 300 / -550 Intake: Intake, Oral Amount 720 / 1020 300 / 1020 Output: Output, Urine Amount 1200 / 1570 370 / 1570 0 / 1570 Other: Number of Unmeasured Voids 1 Laboratory Results - last 24 hr 07/27/22 09:37: PSA Screen 0.4 07/28/22 15:38: Total Creatine Kinase 144, CK-MB (CK-2) 1.7, CK-MB (CK-2) Rel Index 1.2, Troponin I 0.01 07/29/22 07:15: WBC 8.4 D, RBC 3.29 L, Hgb 9.9 L, Hct 32.1 L, MCV 97.8 H, MCH 30.2, MCHC 30.9 L, RDW 13.9, Plt Count 215, MPV 9.1, Neut % (Auto) 73.5, Lymph % (Auto) 12.6, [place] % (Auto) 12.4 H, Eos % (Auto) 1.0, Baso % (Auto) 0.4, Neut # (Auto) 6.2, Lymph # (Auto) 1.1, [place] # (Auto) 1.0, Eos # (Auto) 0.1, Baso # (Auto) 0.0 07/29/22 07:15: Sodium 130 L, Potassium 4.0, Chloride 95 L, Carbon Dioxide 30, Anion Gap 9.0, BUN 20, Creatinine 1.00, Estimated Creat Clear 61, Estimated GFR 71, Est GFR ( Amer) 86, Glucose 93, Calcium 9.1 I & O for Labs for Last 24 Hours: Intake & Output 07/26/22 07/27/22 07/28/22 07/29/22 11:59 11:59 11:59 11:59 Intake Total 570 / 570 1200 / 1200 1020 / 1020 Output Total 0 / 0 0 / 0 1570 / 1570 Balance 570 / 570 1200 / 1200 -550 / -550 Weight 180 lb 2 oz 182 lb 9 oz Microbiology Reports for the Last 24 Hours: Microbiology 07/26/22 17:00 Urine,Clean Catch Urine Culture - Preliminary Gram Positive Cocci Constitutional: Present no acute distress Respiratory: Present wheezes (Much improved); Absent rales Cardiac: Present Reg Rate and Rhythm GI: Present soft and distention; Absent tenderness or guarding Extremities: Present edema (Improved) Assessment and Plan *Assessment and plan (1) Community acquired pneumonia: Status: Acute Category: Medical Code(s): J18.9 - Pneumonia, unspecified organism (2) Congestive heart failure: Status: Acute Category: Medical Code(s): I50.9 - Heart failure, unspecified (3) Urinary tract infection: Status: Acute Category: Medical Code(s): N39.0 - Urinary tract infection, site not specified (4) Coronary artery disease: Status: Acute Qualifiers: Associated angina: without angina Coronary Disease-Associated Artery/Lesion type: [place] artery [place] vs. transplanted heart: [place] heart Qualified Code(s): I25.10 - Atherosclerotic heart disease of [place] coronary artery without angina pectoris Category: Medical Code(s): I25.10 - Atherosclerotic heart disease of [place] coronary artery without angina pectoris (5) BPH (benign prostatic hyperplasia): Status: Acute Qualifiers: Lower urinary tract symptom detail: urinary retention Lower urinary tract symptom presence: symptoms present Qualified Code(s): N40.1 - Benign prostatic hyperplasia with lower urinary tract symptoms; R33.8 - Other retention of urine Ca
--- NOTE | 2022-07-29 11:06 | PC.NURSE ---
room air saturation 92%
--- NOTE | 2022-07-29 11:15 | CARE MANAGER ---
Addendum entered by Vivien Martin RN 07/29/22 12:41: Per Luda Duggan, patient's O2 saturations dropped to 87% with ambulation in [place]. 3L continuous O2 ordered through [facility]. Portable will be delivered prior to [facility] transport home. Original Note: Patient planned for discharge home today. He did not qualify for continuous home O2, per Luda Duggan his O2 saturations are 92% at rest as well as up and ambulating around the room. Patient will need a ride home. I will call [facility] and schedule a bus ride home.
[2022-07-29 11:37] VITALS: BP 154/80; PULSE 70; RESP 17; TEMP 36.6; O2SAT 98
--- NOTE | 2022-07-29 11:55 | P.CONPHA_ITS ---
Pharmacy Intervention Comments: Discharge counseling completed at bedside with the patient. Discussed new medications (levofloxacin) and continued medications at home. Overviewed indication for levofloxacin and possible side effects/mitigation strategies. Patient verbalized his understanding and has no questions or concerns at this t lilia.
--- NOTE | 2022-07-29 11:56 | PC.NURSE ---
room air saturation after ambulation 87%
--- NOTE | 2022-07-29 12:16 | PC.NURSE ---
Patient's RA saturation was 92% at rest. With ambulation, saturation dropped to 87% and 2L O2 per NC placed on patient and saturation returned to 92%
--- NOTE | 2022-08-04 08:54 | EXP.DC.SUM ---
General Admission date:: 07/26/22 Discharge date: 07/29/22 HPI HPI HPI: Mr. Kiran is an 86-year-old male patient with a history of congestive heart failure, rheumatic fever, aortic stenosis status post TAVR in 2017, pacemaker, hyperlipidemia, asthma, GERD, peptic ulcer disease, irritable bowel syndrome, BPH, kidney disease, diverticulosis who was brought to [facility] emergency room for evaluation yesterday with progressive shortness of breath. He has been more short of breath the last 2 to 3 weeks and has been on a round of antibiotics without improvement. He has oxygen at home but only goes to 2 L/min which was not sufficient. He usually just wore oxygen at night but had to wear it continuously throughout the day. He denies having any chest pain. He had no fever. He had an occasional production with his cough. He was eating and drinking as usual. He had difficulty with ambulation due to the shortness of breath. With evaluation in the emergency room laboratory data this morning: White blood cell count is 6700 with a hemoglobin of 10.3 and hematocrit of 31.7. Sodium is 133 with a potassium of 4.2. BUN is 21 and creatinine is 1.1. BNP is 2930. Urinalysis shows trace of blood 2+ leuk esterase and 1+ bacteria with 20-50 white blood cells. COVID and flu test were negative. Chest x-ray showed right basilar opacities with differential of loculated pleural effusion versus less likely a mass. Follow-up CT might be helpful. This a.m. patient states he feels so much better. With increase in oxygen he immediately was less short of breath. He rested at intervals during the night. He has eaten a good breakfast. Hospital Course Hospital Course Hospital Course: The patient was admitted and routine pneumonia orders consisting of duo nebs and antibiotics were ordered. Some of his home medications were reordered. It was felt he had community-acquired pneumonia along with a UTI. By 07/28/2022, he had had a horrible night. He had an episode where he could not breathe. His oxygen was increased and he was given nebulizer treatments. By the morning of 07/28/2022, he felt a little bit better. He was requesting his Symbicort be reordered. He did have more swelling in his legs. His chest x-ray showed a loculated pleural effusion versus a mass, therefore CT scan was ordered. Lovenox was added for DVT prophylaxis. By 07/29/2022, he was feeling better and his shortness of breath and wheezing had improved. He had some gas and constipation and had not had a bowel movement in 4 days. He was started on simethicone and stool softeners. His chest CT showed extensive pleural calcification bilaterally which was possibly related to prior asbestos exposure. There was fluid loculated in the right major fissure. The patient was stable to be discharged home with supplemental oxygen at 3 L/min and will follow-up outpatient. Of note, his sputum culture showed normal giovanni and his blood culture showed no growth. His urine culture did grow Enterococcus faecalis and it was sensitive to ampicillin, daptomycin, penicillin, and vancomycin. Exam Data for Last 24 hours Vital signs and Labs for Last 24 Hours: Temp Pulse Resp BP Pulse Ox 97.8 F 70 17 154/80 H 98 07/29/22 11:37 07/29/22 11:37 07/29/22 11:37 07/29/22 11:37 07/29/22 11:37 Narrative: Constitutional Constitutional: no acute distress and thin *Routine HEENT Exam Head: Present normocephalic and atraumatic Eye: Present PERRL; Absent conjunctival icterus, scleral injection or conjunctivae pink ENT: Present mucous membranes moist and oropharynx clear *Routine Neck Exam Neck: Present supple; Absent carotid bruit, lymphadenopathy or thyromegaly *Routine Respiratory Exam Respiratory: Present diminished air movement *Routine Cardiovascular Exam Cardiovascular: Present RRR and ectopic *Routine Abdominal Exam Abdominal: Present soft and normoactive bowel sounds; Absent tenderness or
== END 2022-07-29 18:25 | disposition home or self-care (01) | DRG 194 ==
LOC: ER 17:47 → 2ND 19:23
PROVIDERS: Physician Assistant; Admitting Provider Family Medicine; Emergency Provider Emergency Medicine; Visit Provider Family Medicine
DX: J18.9 Pneumonia, unspecified organism (principal); J44.0 Chronic obstructive pulmonary disease with (acute) lower respiratory infection; N39.0 Urinary tract infection, site not specified; I25.10 Atherosclerotic heart disease of native coronary artery without angina pectoris; N40.1 Benign prostatic hyperplasia with lower urinary tract symptoms; E78.5 Hyperlipidemia, unspecified; Z99.81 Dependence on supplemental oxygen; Z95.0 Presence of cardiac pacemaker; I50.9 Heart failure, unspecified; Z87.891 Personal history of nicotine dependence; N40.0 Benign prostatic hyperplasia without lower urinary tract symptoms; B95.2 Enterococcus as the cause of diseases classified elsewhere; K59.00 Constipation, unspecified; R33.8 Other retention of urine; I11.0 Hypertensive heart disease with heart failure
CPT/HCPCS: 36415; 71045; 71260; 80048; 80053; 81001; 82550; 82553; 83605; 83880; 84484; 85007; 85025; 86738; 87040; 87070; 87086; 87088; 87186; 87205; 93005; 94640; 94761; 99285; G0103; C9803; J0456; J0696; J1956; Q9967; U0003; U0005

== ENCOUNTER → 2023-01-06 12:39 | Outpatient (CLI) | payer MEDICARE, SELFPAY ==
--- NOTE | 2023-01-06 12:49 | XR_ITS ---
FINAL REPORT CLINICAL HISTORY: LT HIP PAIN COMPARISON: None FINDINGS: LEFT HIP: Two views of the left hip demonstrate no acute fracture or dislocation. The joint spaces appear normal. The visualized bony structures are well aligned. No soft tissue abnormality is seen. IMPRESSION: No acute bony abnormality. Reviewed, Interpreted and Dictated by Abe Andrew MD Transcribed by Vanessa Solis Authenticated and [facility]
== END ==
PROVIDERS: PCP Family Medicine; Visit Provider Family Medicine
DX: M25.552 Pain in left hip (principal)
CPT/HCPCS: 73502

== ENCOUNTER → 2023-05-31 16:15 | Outpatient (CLI) | payer MEDICARE, SELFPAY ==
[2023-05-31 14:12] LABS: Basophils % 0.2 % (0.1-2.0); Eosinophils # 0.2 K/mm3 (0.0-0.4); Eosinophils % 2.3 % (0.1-12.0); Hematocrit 37.8 % (42.0-52.0); Lymphocytes # 1.6 K/mm3 (0.7-4.5); Lymphocytes % 26.2 % (10-50); Mean Corpuscular HGB Conc 31.7 g/dL (31.8-35.4); Mean Corpuscular Hemoglobin 30.7 pg (27.0-31.2); Mean Corpuscular Volume 96.8 fl (80-94); Mean Platelet Volume 8.9 fl (7.4-10.4); Monocytes # 0.8 K/mm3 (0.1-1.0); Monocytes % 13.1 % (1.7-9.3); Neutrophils # 3.6 K/mm3 (1.8-7.8); Neutrophils % 58.1 % (37.0-80.0); Platelet Count 148 K/mm3 (142-424); Red Cell Distribution Width 13.5 % (11.5-17.5); White Blood Count 6.3 K/mm3 (4.8-10.8)
[2023-05-31 14:40] LABS: Alanine Aminotransferase 19 U/L (12-78); Albumin Level 4.4 g/dl (3.5-5.0); Albumin/Globulin Ratio 1.4 (1.1-1.8); Alkaline Phosphatase 58 U/L (38-126); Anion Gap 11.8 mEq/L (5-15); Aspartate Amino Transferase 28 U/L (17-59); Bilirubin,Total 1.1 mg/dl (0.2-1.3); Blood Urea Nitrogen 21 mg/dl (9-20); Calcium 9.8 mg/dl (8.4-10.2); Carbon Dioxide 33 mmol/L (22.0-30.0); Chloride 98 mmol/L (98-107); Chol/HDL Ratio 2.2 (1-3.5); Cholesterol 141 mg/dl (140-200); Estimated Glomerular Filt Rate 57 ml/min (>60); GFR (African American) 69 ML/MIN (>60); Globulin 3.1 g/dL (1.3-3.2); Glucose 91 mg/dl (74-100); HDL Cholesterol 63 mg/dl (40-60); Potassium 4.8 mmoL/L (3.5-5.1); Sodium 138 mmol/L (136-145); Total Protein,Serum 7.5 g/dl (6.3-8.2); Triglycerides 62 mg/dl (30-150); VLDL Cholesterol 12 mg/dL (0-40)
[2023-05-31 14:51] LABS: Direct LDL Cholesterol 59.83 mg/dL (100-129)
[2023-05-31 15:01] LABS: Free T4 (Free Thyroxine) 1.28 ng/dl (0.78-2.19)
[2023-05-31 15:14] LABS: Thyroid Stimulating Hormone 0.97 uIU/mL (0.465-4.68)
[2023-05-31 15:49] LABS: Vitamin B12 909 pg/mL (239-931)
[2023-05-31 15:59] LABS: Folate > 20.00 ng/mL
[2023-05-31 16:17] LABS: Iron 81 ug/dL (49-181)
[2023-05-31 16:26] LABS: Total Iron Binding Capacity 310 ug/dL (261-462)
[2023-05-31 16:53] LABS: Ferritin 70.7 ng/ml (17.9-464)
== END ==
PROVIDERS: PCP Internal Medicine; Visit Provider Internal Medicine
DX: I25.10 Atherosclerotic heart disease of native coronary artery without angina pectoris (principal); Z00.00 Encounter for general adult medical examination without abnormal findings; E78.5 Hyperlipidemia, unspecified; D64.9 Anemia, unspecified; Z87.891 Personal history of nicotine dependence; I10 Essential (primary) hypertension
CPT/HCPCS: 80053; 80061; 82607; 82728; 82746; 83540; 83550; 84439; 84443; 85025

== ENCOUNTER → 2023-06-15 14:51 | Outpatient (CLI) | payer MEDICARE, SELFPAY | PROVIDERS: PCP Internal Medicine; Visit Provider Internal Medicine | DX: R30.0 Dysuria (principal); B95.2 Enterococcus as the cause of diseases classified elsewhere | CPT/HCPCS: 87086 ==

== ENCOUNTER → 2023-08-10 10:24 | Outpatient (CLI) | payer MEDICARE, SELFPAY ==
[2023-08-10 17:15] LABS: Adenovirus,PCR Not Detected (NotDetected); Coronavirus 19, PCR Not Detected (NotDetected); Coronavirus 229E Not Detected (NotDetected); Coronavirus NL63 Not Detected (NotDetected); Coronavirus OC43 Not Detected (NotDetected); Coronovirus HKU1,PCR Not Detected (NotDetected); Human Metapneumovirus Not Detected (NotDetected); Influenza A, PCR Not Detected (NotDetected); Influenza AH1, 2009 Not Detected (NotDetected); Influenza AH1, PCR Not Detected (NotDetected); Influenza AH3,PCR Not Detected (NotDetected); Influenza B, PCR Not Detected (NotDetected); Parainfluenza 1, PCR Not Detected (NotDetected); Parainfluenza 2, PCR Not Detected (NotDetected); Parainfluenza 3, PCR Not Detected (NotDetected); Parainfluenza 4, PCR Not Detected (NotDetected); Respiratory Syncytial Virus Not Detected (NotDetected); Rhinovirus/Enterovirus Not Detected (NotDetected)
== END ==
PROVIDERS: PCP Internal Medicine; Visit Provider Internal Medicine
DX: J01.90 Acute sinusitis, unspecified (principal); J34.89 Other specified disorders of nose and nasal sinuses; R51.9 Headache, unspecified; R05.8 Other specified cough
CPT/HCPCS: 87581; 87632; 87635; 87798

== ENCOUNTER 2023-08-25 14:07 | Emergency (ER) | payer MEDICARE, SELFPAY ==
[2023-08-25] VITALS (9 sets, daily range): BP systolic 142–181; BP diastolic 71–93; PULSE 66–96; RESP 12–20; TEMP 36.7; O2SAT 85–99; BMI 27.3
--- NOTE | 2023-08-25 14:07 | ECG_ITS ---
APPROVED REPORT Exam: Resting ECG HR:70 bpm ECG Measurements Heart Rate 70 AXES QRSd 157 QRS -76 QT 471 T 239 QTc 491 Conclusion ELECTRONIC VENTRICULAR PACEMAKER ABNORMAL RHYTHM ECG UNCONFIRMED REPORT Electronically signed by : Rajan Diamond MD 08/26/2023 07:47:46
--- NOTE | 2023-08-25 14:23 | XR_ITS ---
FINAL REPORT CLINICAL HISTORY: chest pain, shortness of air former smoker of 45 years FINDINGS: A single view of the chest was obtained. There is mild cardiomegaly. The patient is status post median sternotomy. A left-sided pacemaker is present. There is fluid in the minor fissure. Scarring or atelectasis is seen in the right lung base. There is a small right pleural effusion. There is no pneumothorax. IMPRESSION: Small right pleural effusion extending into the minor fissure. Scarring or atelectasis at the right lung base. Reviewed, Interpreted and Dictated by Kelvin Martell MD Transcribed by Janice Zepeda Authenticated and . [facility]
[2023-08-25 14:32] LABS: Coronavirus 19, PCR Not Detected (NotDetected); Influenza A, PCR Not Detected (NotDetected); Influenza B, PCR Not Detected (NotDetected)
[2023-08-25 14:33] LABS: Chloride 99 mmol/L (98-107); Potassium 4.7 mmoL/L (3.5-5.1); Sodium 136 mmol/L (136-145)
[2023-08-25 14:35] LABS: Alanine Aminotransferase 29 U/L (12-78); Aspartate Amino Transferase 36 U/L (17-59); Blood Urea Nitrogen 20 mg/dl (9-20); Creatinine Clearance Estimated 44 mL/min (50-200); Estimated Glomerular Filt Rate 52 ml/min (>60); GFR (African American) 63 ML/MIN (>60)
[2023-08-25 14:36] LABS: Albumin Level 4.3 g/dl (3.5-5.0); Albumin/Globulin Ratio 1.4 (1.1-1.8); Alkaline Phosphatase 59 U/L (38-126); Anion Gap 12.7 mEq/L (5-15); Calcium 9.3 mg/dl (8.4-10.2); Carbon Dioxide 29 mmol/L (22.0-30.0); Glucose 93 mg/dl (74-100); Total Protein,Serum 7.3 g/dl (6.3-8.2)
[2023-08-25 14:41] LABS: Basophils % 0.3 % (0.1-2.0); Eosinophils # 0.1 K/mm3 (0.0-0.4); Eosinophils % 1.3 % (0.1-12.0); Hematocrit 33.7 % (42.0-52.0); Hemoglobin 10.9 g/dL (14.1-18.0); Lymphocytes # 1.1 K/mm3 (0.7-4.5); Lymphocytes % 17.8 % (10-50); Mean Corpuscular HGB Conc 32.3 g/dL (31.8-35.4); Mean Corpuscular Volume 99.3 fl (80-94); Mean Platelet Volume 8.9 fl (7.4-10.4); Monocytes # 0.6 K/mm3 (0.1-1.0); Monocytes % 10.4 % (1.7-9.3); Neutrophils # 4.3 K/mm3 (1.8-7.8); Neutrophils % 70.3 % (37.0-80.0); Platelet Count 135 K/mm3 (142-424); Red Cell Distribution Width 13.8 % (11.5-17.5); White Blood Count 6.1 K/mm3 (4.8-10.8)
[2023-08-25 14:45] LABS: NT Pro Brain Natriuretic Pep. 4400 pg/mL (0-450)
[2023-08-25 14:48] LABS: Troponin I 0.02 ng/ml (0.00-0.034)
--- NOTE | 2023-08-25 15:20 | [facility].EDCP ---
Discharge Plan Disposition Patient Disposition: Still a Patient Prescriptions Prescriptions: New cefdinir 300 mg capsule 300 mg PO BID 10 Days Qty: 20 0RF No Action esomeprazole magnesium [Nexium] 40 mg capsule,delayed release(DR/EC) 40 mg PO DAILY montelukast [Singulair] 10 mg tablet 10 mg PO DAILY tamsulosin 0.4 mg capsule 0.4 mg PO DAILY fluticasone propionate 50 mcg/actuation spray,suspension 1 spray INTRANASAL BID Patient Comments: SHAKE LIQUID AND USE 1 SPRAY IN EACH NOSTRIL TWICE DAILY albuterol sulfate 90 mcg/actuation HFA aerosol inhaler 1 inh INHALATION Q6H PRN (Reason: shortness of breath or wheezing) 90 Days Qty: 8.5 3RF furosemide 20 mg tablet 20 mg PO DAILY Patient Comments: TAKE 1 TABLET BY MOUTH DAILY (DME) Savanah Addison Lg Mask Spacer See Rx Instructions .ROUTE .MEDSUPPLY Qty: 1 Patient Comments: USE 1 SPACER DIRECTED Rx Instructions: As directed nebivolol 2.5 mg tablet 2.5 mg PO DAILY Patient Comments: TAKE 1 TABLET BY MOUTH TWICE DAILY IN THE MORNING AND EVENING guaifenesin 1,200 mg tablet extended release 12hr 1,200 mg PO BID Qty: 30 2RF rosuvastatin [Crestor] 20 mg tablet 20 mg PO DAILY Qty: 90 1RF benzonatate 100 mg capsule PO TID PRN (Reason: cough) Patient Comments: TAKE 1 CAPSULE BY MOUTH THREE TIMES DAILY NEEDED FOR COUGH nitroglycerin [Nitrostat] 0.4 mg tablet, sublingual 0.4 mg SUBLINGUAL Q5M PRN (Reason: Chest Pain) Qty: 20 2RF Rx Instructions: until response; do not exceed 3 doses per episode Spiriva Respimat 1.25 mcg/actuation mist See Rx Instructions .ROUTE .COMPLEX Qty: 4 0RF Dose Instruction: INHALE 2 PUFFS BY MOUTH DAILY Rx Instructions: INHALE 2 PUFFS BY MOUTH DAILY dicyclomine 10 mg capsule 10 mg PO BID PRN (Reason: STOMACH PAIN/DIARRHEA) Rx Instructions: 1-2 caps po q 6hrs prn dutasteride [Avodart] 0.5 mg capsule 0.5 mg PO DAILY budesonide-formoterol [Symbicort] 160-4.5 mcg/actuation HFA aerosol inhaler 2 puff INHALATION BID famotidine 20 mg tablet 20 mg PO HS Rx Instructions: TAKE 1 TABLET BY MOUTH AT BEDTIME ferrous sulfate [FeroSul] 325 mg (65 mg iron) tablet 325 mg PO DAILY Patient Comments: TAKE 1 TABLET BY MOUTH DAILY Referrals Follow up/Referrals: Eleazar Gallardo DO [Primary Care Provider] - See instructions Eleazar Mayer MD [Staff Physician] - See instructions Clinical Impressions Clinical Impression: Chest pain, Acute UTI Discharge ED Provider: Kathe Odell HPI <Kathe Odell MD - Last Filed: 08/25/23 15:39> General Chief Complaint: Shortness of Breath/Dyspnea Stated Complaint: Weakness/CP Time Seen by Provider: 08/25/23 14:12 Mode of Arrival: Ambulatory Source of Information: Patient Limitations: No Limitations Description of Symptoms (Recalled from ER Triage Doc. by RN): pt presents with c/o shortness of breath, increased urine output, and chest pain. pt reports chest pain intermittent since yesterday. shortness of air ongoing for approx 1 week, and increased urine output began last night. History of Present Illness HPI narrative: This 87-year-old male with a history of prior open heart surgery, arthritis, hypertension who wears up to 3 L of oxygen as needed at home and always wears it at night presents to the ER with 1 week of cough, shortness of breath, arm pain. He states the symptoms are mostly intermittent but have been more persistent recently. He states he has been wearing his oxygen at home regularly because he has not felt well unless he is on it. He denies any recent swelling of his feet or ankles but states he has not been taking his diuretic. He denies any fevers, chills, but does state he has been having dysuria and urinary frequency and believes he has a urinary tract infection. He has not seen his primary care physician for these complaints. Related Data Home Medications Medication Instructions Recorded Confirmed esomeprazole magnesium 40 mg 40 mg PO DAILY ACID REFLUX 11/01/19 08/10/23 capsule,delayed release (Nexium) montelukast 10 mg tablet 10 mg PO DAILY ALLERGIES 11/01/19 08/10/23 (Singulair) tamsulosin 0.4 mg capsule 0.4 mg PO DAILY URINATION 11/01/19 08/10/23 budesonide-formoterol HFA 160 2 puff inhalation BID COPD 07/27/22 08/10/23 mcg-4.5 mcg/actuation aerosol inhaler (Symbicort) dutasteride 0.5 mg capsule 0.5 mg PO DAILY urinary retention 07/27/22 08/10/23 (Avodart) dicyclomine 10 mg capsule 10 mg PO BID PRN STOMACH 04/27/23 08/10/23 PAIN/DIARRHEA famotidine 20 mg tablet 20 mg PO HS Acid Reflux 04/27/23 08/10/23 ferrous sulfate 325 mg (65 mg 325 mg PO DAILY Supplement 04/27/23 08/10/23 iron) tablet (FeroSul) fluticasone propionate 50 1 spray intranasal BID ALLERGIES 04/27/23 08/10/23 mcg/actuation nasal spray,suspension furosemide 20 mg tablet 20 mg PO DAILY 04/27/23 08/10/23 inhalat.spacing dev,large mask #1 ea 04/27/23 08/10/23 ([facility] with Large Mask) nebivolol 2.5 mg tablet 2.5 mg PO DAILY 05/31/23 08/10/23 benzonatate 100 mg capsule mg PO TID PRN cough 08/10/23 08/10/23 Previous Rx's Medication Instructions Recorded albuterol sulfate 90 mcg/actuation 1 inh inhalation Q6H PRN shortness 03/16/22 aerosol inhaler of breath or wheezing 90 days #8.5 grams guaifenesin 1,200 mg tablet, 1,200 mg PO BID #30 tabs 07/05/23 extended release 12 hr nitroglycerin 0.4 mg sublingual 0.4 mg sublingual Q5M PRN Chest 07/25/23 tablet (Nitrostat) Pain #20 tabs rosuvastatin 20 mg tablet (Crestor) 20 mg PO DAILY High cholesterol 07/28/23 #90 tabs tiotropium bromide 1.25 See Rx Instructions .Route 08/12/23 mcg/actuation mist for inhalation .COMPLEX #4 grams (Spiriva Respimat) cefdinir 300 mg capsule 300 mg PO BID 10 days #20 caps 08/25/23 Allergies Allergy/AdvReac Type Severity Reaction Status Date / Time atorvastatin [From Lipitor] Allergy Intermediate muscle Verified 08/25/23 14:23 soreness dexlansoprazole Allergy Intermediate Verified 08/25/23 14:23 [From Dexilant] niacin Allergy Intermediate Verified 08/25/23 14:23 omeprazole [From Zegerid] Allergy Intermediate Verified 08/25/23 14:23 sodium bicarbonate Allergy Intermediate Verified 08/25/23 14:23 [From Zegerid] albuterol [From Combivent] Allergy Mild Verified 08/25/23 14:23 amoxicillin [From Prevpac] Allergy Mild Verified 08/25/23 14:23 azelastine [From Astepro] Allergy Mild Verified 08/25/23 14:23 baclofen Allergy Mild Verified 08/25/23 14:23 bisoprolol Allergy Mild Verified 08/25/23 14:23 carvedilol Allergy Mild Verified 08/25/23 14:23 clarithromycin [From Prevpac] Allergy Mild Verified 08/25/23 14:23 clopidogrel [From Plavix] Allergy Mild Verified 08/25/23 14:23 fish oil Allergy Mild Verified 08/25/23 14:23 fluticasone Allergy Mild Verified 08/25/23 14:23 [From Advair Diskus] Hydantoins Allergy Mild Verified 08/25/23 14:23 hydrocodone Allergy Mild Verified 08/25/23 14:23 ipratropium [From Combivent] Allergy Mild Verified 08/25/23 14:23 lansoprazole [From Prevpac] Allergy Mild Verified 08/25/23 14:23 loratadine Allergy Mild Verified 08/25/23 14:23 metoprolol Allergy Mild Verified 08/25/23 14:23 ranolazine [From Ranexa] Allergy Mild very sick Verified 08/25/23 14:23 salmeterol Allergy Mild Verified 08/25/23 14:23 [From Advair Diskus] Sulfa (Sulfonamide Allergy Mild Verified 08/25/23 14:23 Antibiotics) tramadol Allergy Mild Verified 08/25/23 14:23 aspirin Allergy bleeding Verified 08/25/23 14:23 azithromycin Allergy Verified 08/25/23 14:23 cephalexin Allergy Verified 08/25/23 14:23 ciprofloxacin Allergy Verified 08/25/23 14:23 clavulanic acid Allergy Verified 08/25/23 14:23 [From Augmentin] formoterol [From Dulera] Allergy Verified 08/25/23 14:23 metronidazole Allergy Verified 08/25/23 14:23 mometasone furoate Allergy Verified 08/25/23 14:23 [From Dulera] pilocarpine Allergy Verified 08/25/23 14:23 ramipril [From Altace] Allergy Verified 08/25/23 14:23 sulfamethoxazole Allergy Verified 08/25/23 14:23 [From Bactrim] trimethoprim [From Bactrim] Allergy Verified 08/25/23 14:23 fluticasone furoate AdvReac Mild Dizziness Verified 08/25/23 14:23 [From Trelegy Ellipta] lisinopril AdvReac Mild Verified 08/25/23 14:23 umeclidinium AdvReac Mild Dizziness Verified 08/25/23 14:23 [From Trelegy Ellipta] vilanterol AdvReac Mild Dizziness Verified 08/25/23 14:23 [From Trelegy Ellipta] motilium Allergy Intermediate Uncoded 08/10/23 13:13 PFS <Kathe Odell MD - Last Filed: 08/25/23 15:39> [facility] Disclaimer: The information contained in this section may have been updated after the patient was seen, as this information can be updated by other users. Medical History Acquired hallux valgus of both feet Acquired hammer toes of both feet Actinic keratosis Acute retention of urine Arthritis Callus of foot Complicated urinary tract infection Diabetic foot GERD (gastroesophageal reflux disease) Hiatal hernia HTN (hypertension) Inguinal hernia Keratosis Onychodystrophy Onychomycosis Overweight with body mass index (BMI) 25.0-29.9 Prostatitis Surgical History H/O hernia repair History of arthroplasty of right knee History of coronary artery bypass graft History of tonsillectomy Hx of cholecystectomy Family History Other No significant family history Social History Smoking Status: Former smoker tobacco type: cigarettes years smoked: 46 alcohol intake: never substance use type: denies use current occupational status: disabled Travel in the last 8 weeks: None household members: spouse housing: house current occupational exposures/hazards: No caffeine: Yes <Kathe Odell MD - Last Filed: 08/25/23 15:39> ROS Obtained: Yes All systems reviewed & no additional complaints except as documented Constitutional Constitutional: Denies chills, Denies fever(s), Denies headache(s) and Denies weakness Eyes Eyes: Denies change in vision ENT Ears, Nose, Mouth, and Throat: Denies dizziness, Denies headache(s), Denies nasal congestion and Denies sore throat Cardiovascular Cardiovascular: Reports chest pain, Reports dyspnea and Denies leg edema Respiratory Respiratory: Reports cough and Reports dyspnea Gastrointestinal Gastrointestingal: Denies constipation, diarrhea, nausea or vomiting Genitourinary Male Genitourinary: Reports urinary frequency and Reports other (Painful urination) Musculoskeletal Musculoskeletal: Denies arthralgias, Denies myalgias, Denies numbness and Denies tingling Integumentary/Breasts Skin/Breast: Denies change in pigmentation Neurologic Neurologic: Denies dizziness, Denies headache(s), Denies numbness, Denies tingling and Denies weakness Physical Exam <Kathe Odell MD - Last Filed: 08/25/23 15:39> General General appearance: alert and in no apparent distress Head Head exam: atraumatic and normocephalic Eye Eye exam: Present PERRL and EOMI ENT ENT exam: Present mucous membranes moist Neck Neck exam: Present normal inspection and full ROM Chest Chest inspection: Present symmetric chest wall rise Respiratory Respiratory exam: Present normal lung sounds bilaterally and other (Saturating 89% on room air, saturating 93 to 95% on 1 L nasal cannula); Absent respiratory distress, wheezes or stridor Cardiovascular Cardiovascular exam: Present regular rate and normal rhythm Abdominal Exam Abdominal exam: Present soft; Absent distention, tenderness, guarding or rebound Extremities Exam Extremities exam: Present full ROM Neurological Exam Neurological exam: Present alert and oriented X3; Absent motor sensory deficit Psychiatric Psychiatric exam: Present normal affect and normal mood Skin Skin exam: Present warm and dry HEART Score <Kahte Odell MD - Last Filed: 08/25/23 15:39> HEART Score HEART Score assessment performed?: Yes History (anamnesis): Moderately suspicious ECG: Non-specific disturbance Age: >65 years Risk factors: Atherosclerosis history Troponin: </= normal limit HEART Score: 6 <Meet Moses MD - Last Filed: 08/25/23 17:57> HEART Score HEART Score: 6 Critical Care <Kathe Odell MD - Last Filed: 08/25/23 15:39> Critical Care Time Critical Care Time: No Medical Decision Making <Kathe Odell MD - Last Filed: 08/25/23 15:39> Rj Inquiry Pt receiving controlled substance: No Vital Signs Vital Signs: 08/25/23 14:08 08/25/23 14:15 08/25/23 14:31 Temperature 98.0 F Temperature Source Oral Pulse Rate 71 70 Pulse Rate [Left Radial] 70 Respiratory Rate 20 12 17 Blood Pressure 142/71 H Blood Pressure [Right Arm] 164/88 H Blood Pressure Mean 104 Blood Pressure Mean [Right Arm] 113 02 Sat by Pulse Oximetry 85 L 99 95 Oxygen Delivery Method Room Air Nasal Cannula Oxygen Flow Rate (LPM) 1 08/25/23 15:00 08/25/23 15:30 08/25/23 16:30 Temperature Temperature Source Pulse Rate 70 70 67 Pulse Rate [Left Radial] Respiratory Rate 17 20 18 Blood Pressure 145/73 H 155/83 H 167/86 H Blood Pressure [Right Arm] Blood Pressure Mean 108 107 113 Blood Pressure Mean [Right Arm] 02 Sat by Pulse Oximetry 96 96 97 Oxygen Delivery Method Nasal Cannula Room Air Oxygen Flow Rate (LPM) 1 08/25/23 17:00 Temperature Temperature Source Pulse Rate 70 Pulse Rate [Left Radial] Respiratory Rate 17 Blood Pressure 168/85 H Blood Pressure [Right Arm] Blood Pressure Mean 112 Blood Pressure Mean [Right Arm] 02 Sat by Pulse Oximetry 98 Oxygen Delivery Method Nasal Cannula Oxygen Flow Rate (LPM) 1 Lab Data Labs: Lab Results 08/25/23 14:11: WBC 6.1, RBC 3.40 L, Hgb 10.9 L, Hct 33.7 L, MCV 99.3 H, MCH 32.0 H, MCHC 32.3, RDW 13.8, Plt Count 135 L, MPV 8.9, Neut % (Auto) 70.3, Lymph % (Auto) 17.8, Harris % (Auto) 10.4 H, Eos % (Auto) 1.3, Baso % (Auto) 0.3, Neut # (Auto) 4.3, Lymph # (Auto) 1.1, Harris # (Auto) 0.6, Eos # (Auto) 0.1, Baso # (Auto) 0.0, Sodium 136, Potassium 4.7, Chloride 99, Carbon Dioxide 29, Anion Gap 12.7, BUN 20, Creatinine 1.30 H, Estimated Creat Clear 44, Estimated GFR 52 L, Est GFR ( Amer) 63, Glucose 93, Calcium 9.3, Total Bilirubin 1.0, AST 36, ALT 29, Alkaline Phosphatase 59, Troponin I 0.02, NT-Pro-B Natriuret Pep 4400 H, Total Protein 7.3, Albumin 4.3, Globulin 3.0, Albumin/Globulin Ratio 1.4, SARS-CoV-2 (PCR) Not detected, Influenza A Untype (PCR) Not detected, Influenza Type B (PCR) Not detected 08/25/23 15:40: Urine Color Yellow, Urine Appearance Cloudy, Urine pH 6.0, Ur Specific Spencer 1.010, Urine Protein Trace, Urine Glucose (UA) Negative, Urine Ketones Negative, Urine Blood 2+, Urine Nitrate Negative, Urine Bilirubin Negative, Urine Urobilinogen 0.2, Ur Leukocyte Esterase 3+ A, Urine RBC 3-5, Urine WBC Tntc, Ur Squamous Epith Cells Occasional, Urine Bacteria 1+ 08/25/23 17:19: Troponin I < 0.01 08/25/23 14:11 08/25/23 14:11 Response Orders (Tests/Meds): ED MEDICATIONS Generic Name Dose Route Start Last Admin Trade Name Freq PRN Reason Stop Dose Admin Sodium Chloride 10 ml 08/25/23 15:44 Sodium Chloride 0.9% 10ml Flush Syringe IV 09/24/23 15:43 NEEDED PRN Maintain IV Site Discontinued Medications Generic Name Dose Route Start Last Admin Trade Name Freq PRN Reason Stop Dose Admin Cefdinir 300 mg 08/25/23 16:22 08/25/23 16:27 Cefdinir 300mg Capsule PO 08/25/23 16:23 300 mg ONCE ONE Administration ORDERS Category Date Time Status XR chest portable Stat Exams 08/25/23 14:23 Completed Brain Natriuretic Peptide Stat Lab 08/25/23 14:11 Completed Complete Blood Count Auto Diff Stat Lab 08/25/23 14:11 Completed Comprehensive Metabolic Panel Stat Lab 08/25/23 14:11 Completed Rapid PCR Covid and Flu A/B Stat Lab 08/25/23 14:11 Completed Troponin I Q3H Lab 08/25/23 17:19 Completed Troponin I Q3H Lab 08/25/23 20:30 Ordered Troponin I Stat Lab 08/25/23 14:11 Completed Urinalysis and Microscopic Stat Lab 08/25/23 15:40 Completed Urine Culture Stat Micro 08/25/23 15:40 Received ECG initial Besson Routine Y 08/25/23 14:07 Completed MDM Narrative Medical Decision Narrative: In summary, this 87year old male presents to the emergency department today with chest pain, shortness of breath, cough, dysuria, urinary frequency. On initial evaluation patient is hemodynamically stable and afebrile, however he is hypoxic on room air and is requiring nasal cannula at rest, cardiopulmonary exam reassuring. Differential diagnosis includes but is not limited to ACS, fluid overload, pulmonary edema, pleural effusion, pneumonia, urinary tract infection, pneumothorax. Based on these concerns, I ordered cardiac workup, BNP, chest x-ray, urine studies. ECG personally interpreted demonstrates paced rhythm, rate 70, QRS duration 157, borderline wide, no STEMI, EKG does have different QRS morphology in lead V1 and V2 compared to prior EKG performed in June 2022, nonspecific at this time. Labs personally reviewed demonstrate CBC with no leukocytosis, mild anemia with hemoglobin 10.9 as present, CMP with normal sodium, potassium, chloride, patient's creatinine is elevated at 1.30, back in May his creatinine was 1.20, this is not a significant change, BNP is newly elevated at 4400, most recent comparison is from June 2022 when it was 2930. Patient's initial troponin is 0.02, second troponin pending. XR personally interpreted demonstrates abnormality in the right lung which was present on previous chest x-ray from June 2022 which I reviewed, patient does not have obvious lobar infiltrate but does have blunting of the left costophrenic angle, likely a small effusion, see radiology read for final interpretation. Patient placed in ED observation at 1535 pending repeat troponin and urinalysis which will determine disposition. Patient handed off to Dr. Moses for continued management and disposition. <Meet Moses MD - Last Filed: 08/25/23 17:57> Vital Signs Vital Signs: 08/25/23 14:08 08/25/23 14:15 08/25/23 14:31 Temperature 98.0 F Temperature Source Oral Pulse Rate 71 70 Pulse Rate [Left Radial] 70 Respiratory Rate 20 12 17 Blood Pressure 142/71 H Blood Pressure [Right Arm] 164/88 H Blood Pressure Mean 104 Blood Pressure Mean [Right Arm] 113 02 Sat by Pulse Oximetry 85 L 99 95 Oxygen Delivery Method Room Air Nasal Cannula Oxygen Flow Rate (LPM) 1 08/25/23 15:00 08/25/23 15:30 08/25/23 16:30 Temperature Temperature Source Pulse Rate 70 70 67 Pulse Rate [Left Radial] Respiratory Rate 17 20 18 Blood Pressure 145/73 H 155/83 H 167/86 H Blood Pressure [Right Arm] Blood Pressure Mean 108 107 113 Blood Pressure Mean [Right Arm] 02 Sat by Pulse Oximetry 96 96 97 Oxygen Delivery Method Nasal Cannula Room Air Oxygen Flow Rate (LPM) 1 08/25/23 17:00 Temperature Temperature Source Pulse Rate 70 Pulse Rate [Left Radial] Respiratory Rate 17 Blood Pressure 168/85 H Blood Pressure [Right Arm] Blood Pressure Mean 112 Blood Pressure Mean [Right Arm] 02 Sat by Pulse Oximetry 98 Oxygen Delivery Method Nasal Cannula Oxygen Flow Rate (LPM) 1 Lab Data Lab results reviewed: Yes I reviewed the patient's lab results. Labs: Lab Results 08/25/23 14:11: WBC 6.1, RBC 3.40 L, Hgb 10.9 L, Hct 33.7 L, MCV 99.3 H, MCH 32.0 H, MCHC 32.3, RDW 13.8, Plt Count 135 L, MPV 8.9, Neut % (Auto) 70.3, Lymph % (Auto) 17.8, Harris % (Auto) 10.4 H, Eos % (Auto) 1.3, Baso % (Auto) 0.3, Neut # (Auto) 4.3, Lymph # (Auto) 1.1, Harris # (Auto) 0.6, Eos # (Auto) 0.1, Baso # (Auto) 0.0, Sodium 136, Potassium 4.7, Chloride 99, Carbon Dioxide 29, Anion Gap 12.7, BUN 20, Creatinine 1.30 H, Estimated Creat Clear 44, Estimated GFR 52 L, Est GFR ( Amer) 63, Glucose 93, Calcium 9.3, Total Bilirubin 1.0, AST 36, ALT 29, Alkaline Phosphatase 59, Troponin I 0.02, NT-Pro-B Natriuret Pep 4400 H, Total Protein 7.3, Albumin 4.3, Globulin 3.0, Albumin/Globulin Ratio 1.4, SARS-CoV-2 (PCR) Not detected, Influenza A Untype (PCR) Not detected, Influenza Type B (PCR) Not detected 08/25/23 15:40: Urine Color Yellow, Urine Appearance Cloudy, Urine pH 6.0, Ur Specific Spencer 1.010, Urine Protein Trace, Urine Glucose (UA) Negative, Urine Ketones Negative, Urine Blood 2+, Urine Nitrate Negative, Urine Bilirubin Negative, Urine Urobilinogen 0.2, Ur Leukocyte Esterase 3+ A, Urine RBC 3-5, Urine WBC Tntc, Ur Squamous Epith Cells Occasional, Urine Bacteria 1+ 08/25/23 17:19: Troponin I < 0.01 Response Orders (Tests/Meds): ED MEDICATIONS Generic Name Dose Route Start Last Admin Trade Name Freq PRN Reason Stop Dose Admin Sodium Chloride 10 ml 08/25/23 15:44 Sodium Chloride 0.9% 10ml Flush Syringe IV 09/24/23 15:43 NEEDED PRN Maintain IV Site Discontinued Medications Generic Name Dose Route Start Last Admin Trade Name Freq PRN Reason Stop Dose Admin Cefdinir 300 mg 08/25/23 16:22 08/25/23 16:27 Cefdinir 300mg Capsule PO 08/25/23 16:23 300 mg ONCE ONE Administration ORDERS Category Date Time Status XR chest portable Stat Exams 08/25/23 14:23 Completed Brain Natriuretic Peptide Stat Lab 08/25/23 14:11 Completed Complete Blood Count Auto Diff Stat Lab 08/25/23 14:11 Completed Comprehensive Metabolic Panel Stat Lab 08/25/23 14:11 Completed Rapid PCR Covid and Flu A/B Stat Lab 08/25/23 14:11 Completed Troponin I Q3H Lab 08/25/23 17:19 Completed Troponin I Q3H Lab 08/25/23 20:30 Ordered Troponin I Stat Lab 08/25/23 14:11 Completed Urinalysis and Microscopic Stat Lab 08/25/23 15:40 Completed Urine Culture Stat Micro 08/25/23 15:40 Received ECG initial [place] Routine Y 08/25/23 14:07 Completed MDM Narrative Medical Decision Narrative: In summary, this 87year old male presents to the emergency department today with chest pain, shortness of breath, cough, dysuria, urinary frequency. On initial evaluation patient is hemodynamically stable and afebrile, however he is hypoxic on room air and is requiring nasal cannula at rest, cardiopulmonary exam reassuring. Differential diagnosis includes but is not limited to ACS, fluid overload, pulmonary edema, pleural effusion, pneumonia, urinary tract infection, pneumothorax. Based on these concerns, I ordered cardiac workup, BNP, chest x-ray, urine studies. ECG personally interpreted demonstrates paced rhythm, rate 70, QRS duration 157, borderline wide, no STEMI, EKG does have different QRS morphology in lead V1 and V2 compared to prior EKG performed in June 2022, nonspecific at this time. Labs personally reviewed demonstrate CBC with no leukocytosis, mild anemia with hemoglobin 10.9 as present, CMP with normal sodium, potassium, chloride, patient's creatinine is elevated at 1.30, back in May his creatinine was 1.20, this is not a significant change, BNP is newly elevated at 4400, most recent comparison is from June 2022 when it was 2930. Patient's initial troponin is 0.02, second troponin pending. XR personally interpreted demonstrates abnormality in the right lung which was present on previous chest x-ray from June 2022 which I reviewed, patient does not have obvious lobar infiltrate but does have blunting of the left costophrenic angle, likely a small effusion, see radiology read for final interpretation. Patient placed in ED observation at 1535 pending repeat troponin and urinalysis which will determine disposition. Patient handed off to Dr. Moses for continued management and disposition. This is Dr. Moses took over care from Dr. Odell pending second troponin. Urinalysis was positive for urinary tract infection test dose of cefdinir was given in the emergency department given his extensive list of allergies but he states that most of those are not true allergies and that he will take what ever we prescribed. He had no side effects from the cefdinir in the emergency department and a prescription was sent to his pharmacy regarding this. No evidence of sepsis. This will be treated as a complicated urinary tract infection he has been advised to follow-up with his primary care doctor regarding culture results etc. Serial troponins are negative EKG I personally interpreted which shows a ventricular paced rhythm cannot rule out ischemia. 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 He is aware and agreeable to this plan.
--- NOTE | 2023-08-25 15:33 | PC.NURSE ---
pt up to restroom, trying to obtain urine specimen.
[2023-08-25 15:44] LABS: Microscopic, Urine URINE MICROSCOPIC (MICROSCOPIC)
[2023-08-25 15:47] LABS: Appearance,Urine CLOUDY (Clear); Bilirubin,Urine Negative (Negative); Blood, Urine 2+ (Negative); Color,Urine YELLOW (Yellow); Glucose,Urine (UA) Negative (Negative); Ketones,Urine Negative (Negative); Leukocyte Esterase,Urine 3+ (Negative); Nitrate,Urine Negative (Negative); Protein,Urine TRACE (Negative); Urobilinogen,Urine 0.2 EU/dl (0.2)
[2023-08-25 16:03] LABS: WBC,Urine TNTC #/hpf (0-3)
[2023-08-25 16:04] LABS: Bacteria,Urine 1+ /lpf; Squamous Epithelial Cell,Urine Occasional #/hpf (0-5)
[2023-08-25] MEDS: CEFDINIR 300MG CAPSULE 300 MG PO (16:27)
--- NOTE | 2023-08-25 16:46 | PC.NURSE ---
pt ambulated to bathroom with minimal assistance. pt ambulated back to bed. pt hooked back up to monitors and call blankenship placed on pts lap. no needs voiced at this time. updated pt on POC.
--- NOTE | 2023-08-25 17:20 | PC.NURSE ---
second troponin pulled from pts line and sent to lab. no needs voiced at this time, call light within reach.
[2023-08-25 17:49] LABS: Troponin I < 0.01 ng/ml (0.00-0.034)
--- NOTE | 2023-08-27 09:00 | PC.NURSE ---
pt calls and reports itching after taking cefdinir. has taken benadryl without relief. spoke with dr bond, rx changed to cipro. pt reports he is able to tolerate cipro. rx sent electronically to [facility] per dr bond
== END 2023-08-25 18:16 | disposition still patient (30) ==
PROVIDERS: Emergency Provider Emergency Medicine; PCP Internal Medicine
DX: R07.9 Chest pain, unspecified (principal); N39.0 Urinary tract infection, site not specified; R06.02 Shortness of breath; I10 Essential (primary) hypertension; Z87.891 Personal history of nicotine dependence
CPT/HCPCS: 71045; 80053; 81001; 83880; 84484; 85025; 87086; 87636; 93005; 99285

== ENCOUNTER 2023-09-27 21:31 | Outpatient (CLI) | payer MEDICARE, SELFPAY | END 2023-09-27 23:59 | LOC: LAB.DROPOF 21:31 | PROVIDERS: PCP Internal Medicine; Visit Provider Internal Medicine | DX: N39.0 Urinary tract infection, site not specified (principal); B95.2 Enterococcus as the cause of diseases classified elsewhere | CPT/HCPCS: 87086 ==

== ENCOUNTER 2023-09-30 12:54 | Emergency (ER) | payer MEDICARE, SELFPAY ==
[2023-09-30 13:15] VITALS: BP 141/86; PULSE 70; RESP 19; TEMP 36.8; O2SAT 92; BMI 21.4
--- NOTE | 2023-09-30 13:36 | ED_ITS ---
Discharge Plan Disposition Patient Disposition: Home, Self-Care Condition: Good Prescriptions Prescriptions: New Neosporin (bpl-gps-yrmey) 3.5mg-400 unit- 5,000 unit/gram ointment 1 applic topical BID Qty: 28.3 0RF Rx Instructions: apply to wound as directed No Action esomeprazole magnesium [Nexium] 40 mg capsule,delayed release(DR/EC) 40 mg PO DAILY montelukast [Singulair] 10 mg tablet 10 mg PO DAILY tamsulosin 0.4 mg capsule 0.4 mg PO DAILY fluticasone propionate 50 mcg/actuation spray,suspension 1 spray INTRANASAL BID Patient Comments: SHAKE LIQUID AND USE 1 SPRAY IN EACH NOSTRIL TWICE DAILY albuterol sulfate 90 mcg/actuation HFA aerosol inhaler 1 inh INHALATION Q6H PRN (Reason: shortness of breath or wheezing) 90 Days Qty: 8.5 3RF (DME) OptiChamber Cyn Lg Mask Spacer See Rx Instructions .ROUTE .MEDSUPPLY Qty: 1 Patient Comments: USE 1 SPACER DIRECTED Rx Instructions: As directed nebivolol 2.5 mg tablet 2.5 mg PO DAILY Patient Comments: TAKE 1 TABLET BY MOUTH TWICE DAILY IN THE MORNING AND EVENING guaifenesin 1,200 mg tablet extended release 12hr 1,200 mg PO BID Qty: 30 2RF rosuvastatin [Crestor] 20 mg tablet 20 mg PO DAILY Qty: 90 1RF Trelegy Ellipta 100-62.5-25 mcg blister with device 1 inh inhalation DAILY Patient Comments: INHALE 1 PUFF BY MOUTH DAILY ipratropium bromide 42 mcg (0.06 %) spray,non-aerosol 2 spray intranasal TID nitrofurantoin monohyd/m-cryst [Macrobid] 100 mg capsule 100 mg PO Q12H 7 Days Qty: 14 0RF Rx Instructions: must administer with a meal/food furosemide 20 mg tablet 20 mg PO DAILY Qty: 20 0RF nitroglycerin [Nitrostat] 0.4 mg tablet, sublingual 0.4 mg SUBLINGUAL Q5M PRN (Reason: Chest Pain) Qty: 20 2RF Rx Instructions: until response; do not exceed 3 doses per episode dicyclomine 10 mg capsule 10 mg PO BID PRN (Reason: STOMACH PAIN/DIARRHEA) Qty: 30 2RF Rx Instructions: 1-2 caps po q 6hrs prn pseudoephedrine HCl 30 mg tablet 30 mg PO Q6H PRN (Reason: nasal congestion) Qty: 30 1RF dutasteride [Avodart] 0.5 mg capsule 0.5 mg PO DAILY famotidine 20 mg tablet 20 mg PO HS Rx Instructions: TAKE 1 TABLET BY MOUTH AT BEDTIME Referrals Follow up/Referrals: Eleazar Gallardo DO [Primary Care Provider] - See instructions Activity Restrictions/Add. Instructions Additional Instructions/Restrictions: Keep wound area clean and dry, apply topical antibiotic ointment as directed and clean nonstick bandage Watch area for signs of infection including but not limited to redness, drainage, swelling and warmth Follow up with your Family Doctor if any signs of infection not healing properly Clean wound with antibacterial soap and water and pat dry Clinical Impressions Clinical Impression: Skin tear Instructions Patient Instructions: DI for Abrasion Discharge ED Provider: Luda Capps [facility] [place] General Stated complaint: left arm pain, no accident Mode of Arrival: Ambulatory Source of Information: Patient Limitations: No Limitations Time Seen by Provider: 09/30/23 13:36 Description of Symptoms (Recalled from Triage Doc. by RN): PATIENT C/O SKIN TEAR TO LEFT ARM AFTER HITTING IT ON A COUNTER HEENT Symptoms (Recalled from RN notes): No Resp Symptoms (Recalled from RN notes): No Skin Symptoms (Recalled from RN notes): Yes MS Symptoms (Recalled from RN notes): No Functional Status (Recalled from RN notes): WNL History of Present Illness Provider Complaint: Patient states that he hit his left forearm on the counter yesterday and caused a skin tear States that his tried to bandage it the best she could but today he came in to get it looked at to make sure it wasnt getting infected Related Data Home Medications Medication Instructions Recorded Confirmed esomeprazole magnesium 40 mg 40 mg PO DAILY ACID REFLUX 11/01/19 09/27/23 capsule,delayed release (Nexium) montelukast 10 mg tablet 10 mg PO DAILY ALLERGIES 11/01/19 09/27/23 (Singulair) tamsulosin 0.4 mg capsule 0.4 mg PO DAILY URINATION 11/01/19 09/27/23 dutasteride 0.5 mg capsule 0.5 mg PO DAILY urinary retention 07/27/22 09/27/23 (Avodart) famotidine 20 mg tablet 20 mg PO HS Acid Reflux 04/27/23 09/27/23 fluticasone propionate 50 1 spray intranasal BID ALLERGIES 04/27/23 09/27/23 mcg/actuation nasal spray,suspension inhalat.spacing dev,large mask #1 ea 04/27/23 09/27/23 ([facility] with Large Mask) nebivolol 2.5 mg tablet 2.5 mg PO DAILY 05/31/23 09/27/23 fluticasone fur. 100 mcg-umeclid 1 inh inhalation DAILY 09/27/23 09/27/23 62.5 mcg-vilant 25 mcg inhalat.powder (Trelegy Ellipta) ipratropium bromide 42 mcg (0.06 2 spray intranasal TID 09/27/23 09/27/23 %) nasal spray Previous Rx's Medication Instructions Recorded albuterol sulfate 90 mcg/actuation 1 inh inhalation Q6H PRN shortness 03/16/22 aerosol inhaler of breath or wheezing 90 days #8.5 grams guaifenesin 1,200 mg tablet, 1,200 mg PO BID #30 tabs 07/05/23 extended release 12 hr nitroglycerin 0.4 mg sublingual 0.4 mg sublingual Q5M PRN Chest 07/25/23 tablet (Nitrostat) Pain #20 tabs rosuvastatin 20 mg tablet (Crestor) 20 mg PO DAILY High cholesterol 07/28/23 #90 tabs dicyclomine 10 mg capsule 10 mg PO BID PRN STOMACH 08/31/23 PAIN/DIARRHEA #30 caps furosemide 20 mg tablet 20 mg PO DAILY #20 tabs 09/27/23 nitrofurantoin 100 mg PO Q12H 7 days #14 caps 09/27/23 monohydrate/macrocrystals 100 mg capsule (Macrobid) pseudoephedrine HCl 30 mg tablet 30 mg PO Q6H PRN nasal congestion 09/28/23 #30 tabs neomycin-bacitracn Zn-polymyx 3.5 1 applic topical BID #28.3 grams 09/30/23 mg-400 unit-5,000 unit/gram top oint (Neosporin (nbt-ded-ibmre)) Allergies Allergy/AdvReac Type Severity Reaction Status Date / Time atorvastatin [From Lipitor] Allergy Intermediate muscle Verified 09/27/23 13:09 soreness dexlansoprazole Allergy Intermediate Verified 09/27/23 13:09 [From Dexilant] niacin Allergy Intermediate Verified 09/27/23 13:09 omeprazole [From Zegerid] Allergy Intermediate Verified 09/27/23 13:09 sodium bicarbonate Allergy Intermediate Verified 09/27/23 13:09 [From Zegerid] albuterol [From Combivent] Allergy Mild Verified 09/27/23 13:09 amoxicillin [From Prevpac] Allergy Mild Verified 09/27/23 13:09 azelastine [From Astepro] Allergy Mild Verified 09/27/23 13:09 baclofen Allergy Mild Verified 09/27/23 13:09 bisoprolol Allergy Mild Verified 09/27/23 13:09 carvedilol Allergy Mild Verified 09/27/23 13:09 clarithromycin [From Prevpac] Allergy Mild Verified 09/27/23 13:09 clopidogrel [From Plavix] Allergy Mild Verified 09/27/23 13:09 fish oil Allergy Mild Verified 09/27/23 13:09 fluticasone Allergy Mild Verified 09/27/23 13:09 [From Advair Diskus] Hydantoins Allergy Mild Verified 09/27/23 13:09 hydrocodone Allergy Mild Verified 09/27/23 13:09 ipratropium [From Combivent] Allergy Mild Verified 09/27/23 13:09 lansoprazole [From Prevpac] Allergy Mild Verified 09/27/23 13:09 loratadine Allergy Mild Verified 09/27/23 13:09 metoprolol Allergy Mild Verified 09/27/23 13:09 ranolazine [From Ranexa] Allergy Mild very sick Verified 09/27/23 13:09 salmeterol Allergy Mild Verified 09/27/23 13:09 [From Advair Diskus] Sulfa (Sulfonamide Allergy Mild Verified 09/27/23 13:09 Antibiotics) tramadol Allergy Mild Verified 09/27/23 13:09 aspirin Allergy bleeding Verified 09/27/23 13:09 azithromycin Allergy Verified 09/27/23 13:09 cephalexin Allergy Verified 09/27/23 13:09 ciprofloxacin Allergy Verified 09/27/23 13:09 clavulanic acid Allergy Verified 09/27/23 13:09 [From Augmentin] formoterol [From Dulera] Allergy Verified 09/27/23 13:09 metronidazole Allergy Verified 09/27/23 13:09 mometasone furoate Allergy Verified 09/27/23 13:09 [From Dulera] pilocarpine Allergy Verified 09/27/23 13:09 ramipril [From Altace] Allergy Verified 09/27/23 13:09 sulfamethoxazole Allergy Verified 09/27/23 13:09 [From Bactrim] trimethoprim [From Bactrim] Allergy Verified 09/27/23 13:09 fluticasone furoate AdvReac Mild Dizziness Verified 09/27/23 13:09 [From Trelegy Ellipta] lisinopril AdvReac Mild Verified 09/27/23 13:09 umeclidinium AdvReac Mild Dizziness Verified 09/27/23 13:09 [From Trelegy Ellipta] vilanterol AdvReac Mild Dizziness Verified 09/27/23 13:09 [From Trelegy Ellipta] motilium Allergy Intermediate Uncoded 09/27/23 13:09 Worker's Comp Is this a Worker's Comp case?: No [facility] Disclaimer: The information contained in this section may have been updated after the patient was seen, as this information can be updated by other users. Medical History Acquired hallux valgus of both feet Acquired hammer toes of both feet Actinic keratosis Acute retention of urine Arthritis Callus of foot Complicated urinary tract infection Diabetic foot GERD (gastroesophageal reflux disease) Hiatal hernia HTN (hypertension) Inguinal hernia Keratosis Onychodystrophy Onychomycosis Overweight with body mass index (BMI) 25.0-29.9 Prostatitis Surgical History H/O hernia repair History of arthroplasty of right knee History of coronary artery bypass graft History of tonsillectomy Hx of cholecystectomy Family History Other No significant family history Social History Smoking Status: Former smoker tobacco type: cigarettes years smoked: 46 alcohol intake: never substance use type: denies use current occupational status: disabled Travel in the last 8 weeks: None household members: spouse housing: house current occupational exposures/hazards: No caffeine: Yes ROS Obtained: Yes All systems reviewed & no additional complaints except as documented and Yes Systems reviewed as appropriate & no additional complaints except as documented Constitutional Constitutional: Reports system reviewed and no additional complaints, except as documented and Reports as per HPI ENT Ears, Nose, Mouth, and Throat: Reports system reviewed and no additional complaints, except as documented and Reports as per HPI Cardiovascular Cardiovascular: Reports system reviewed and no additional complaints, except as documented and Reports as per HPI Respiratory Respiratory: Reports system reviewed and no additional complaints, except as documented and Reports as per HPI Musculoskeletal Musculoskeletal: Reports system reviewed and no additional complaints, except as documented and Reports as per HPI Integumentary/Breasts Skin/Breast: Reports system reviewed and no additional complaints, except as documented, Reports as per HPI and Reports other Comments: skin tear to left forearm no redness no active bleeding Physical Exam General General appearance: alert and in no apparent distress Respiratory Respiratory exam: Present normal lung sounds bilaterally; Absent respiratory distress or wheezes Cardiovascular Cardiovascular exam: Present regular rate, normal rhythm and normal heart sounds Expanded Upper Extremity Exam Left: Forearm/Wrist exam: Present other (skin tear to left forearm no active bleeding ) L/R Arms Top View: 1. skin tear noted, no active bleeding no surrounding redness Neurological Exam Neurological exam: Present alert, oriented X3 and normal gait Medical Decision Making Rj Inquiry Pt receiving controlled substance: No Rj was queried for this patient: No Vital Signs: 09/30/23 13:15 Temperature 98.3 F Temperature Source Oral Pulse Rate [Right Brachial] 70 Respiratory Rate 19 Blood Pressure [Right Arm] 141/86 H Blood Pressure Mean [Right Arm] 104 Blood Pressure Source [Right Arm] Automatic Cuff Blood Pressure Position [Right Arm] Sitting 02 Sat by Pulse Oximetry 92 L Oxygen Delivery Method Nasal Cannula Oxygen Flow Rate (LPM) 2 Medical Decision Narrative: Skin tear cleaned well with hibacleanse and saline, neosporin applied with non- stick bandage and patient educated on how to bandage area
[2023-09-30 13:55] VITALS: BP 141/86; PULSE 70; RESP 19; TEMP 36.8; O2SAT 92
== END 2023-09-30 14:05 | disposition home or self-care (01) ==
PROVIDERS: Emergency Provider Nurse Practitioner; PCP Internal Medicine
DX: S51.802A Unspecified open wound of left forearm, initial encounter (principal); W22.8XXA Striking against or struck by other objects, initial encounter
CPT/HCPCS: 99203; 99212; G0463

== ENCOUNTER 2023-10-20 18:53 | Outpatient (CLI) | payer MEDICARE, SELFPAY ==
[2023-10-20 17:11] LABS: Alanine Aminotransferase 28 U/L (12-78); Albumin Level 4.4 g/dl (3.5-5.0); Albumin/Globulin Ratio 1.6 (1.1-1.8); Alkaline Phosphatase 61 U/L (38-126); Anion Gap 9.6 mEq/L (5-15); Aspartate Amino Transferase 43 U/L (17-59); Basophils % 0.2 % (0.1-2.0); Bilirubin,Total 1.1 mg/dl (0.2-1.3); Blood Urea Nitrogen 19 mg/dl (9-20); Calcium 9.5 mg/dl (8.4-10.2); Carbon Dioxide 33 mmol/L (22.0-30.0); Chloride 98 mmol/L (98-107); Eosinophils # 0.2 K/mm3 (0.0-0.4); Eosinophils % 4.2 % (0.1-12.0); Estimated Glomerular Filt Rate 52 ml/min (>60); GFR (African American) 63 ML/MIN (>60); Globulin 2.8 g/dL (1.3-3.2); Glucose 84 mg/dl (74-100); Hematocrit 36.2 % (42.0-52.0); Hemoglobin 11.4 g/dL (14.1-18.0); Lymphocytes # 1.5 K/mm3 (0.7-4.5); Lymphocytes % 25.7 % (10-50); Mean Corpuscular HGB Conc 31.4 g/dL (31.8-35.4); Mean Corpuscular Hemoglobin 31.8 pg (27.0-31.2); Mean Corpuscular Volume 101.2 fl (80-94); Monocytes # 0.8 K/mm3 (0.1-1.0); Monocytes % 14.1 % (1.7-9.3); Neutrophils # 3.1 K/mm3 (1.8-7.8); Neutrophils % 55.8 % (37.0-80.0); Platelet Count 147 K/mm3 (142-424); Potassium 4.6 mmoL/L (3.5-5.1); Red Blood Count 3.58 M/mm3 (4.60-6.20); Red Cell Distribution Width 13.2 % (11.5-17.5); Sodium 136 mmol/L (136-145); Total Protein,Serum 7.2 g/dl (6.3-8.2); White Blood Count 5.6 K/mm3 (4.8-10.8)
[2023-10-20 17:19] LABS: NT Pro Brain Natriuretic Pep. 2570 pg/mL (0-450)
== END 2023-10-20 23:59 ==
LOC: LAB.DROPOF 18:54
PROVIDERS: PCP Internal Medicine; Visit Provider Internal Medicine
DX: I50.9 Heart failure, unspecified (principal); D53.9 Nutritional anemia, unspecified; N18.9 Chronic kidney disease, unspecified
CPT/HCPCS: 80053; 83880; 85025

== ENCOUNTER 2023-12-08 15:09 | Outpatient (CLI) | payer MEDICARE, SELFPAY ==
--- NOTE | 2023-12-08 15:15 | XR_ITS ---
FINAL REPORT CLINICAL HISTORY: Shortness of breath COMPARISON: 08/25/2023 FINDINGS: Two views of the chest were obtained. Cardiomegaly is present along with pulmonary vascular congestion. The patient has undergone a prior median sternotomy. A left subclavian pacer is noted. The mediastinum is normal. There is partial improvement in the right base opacities noted on the prior chest x-ray of August 25, while the left base remains similar. There are pleural calcifications present in the right lung, both posterior and along the hemidiaphragm. There is no pneumothorax. The bony thorax is intact. IMPRESSION: Cardiomegaly with pulmonary vascular congestion. Partial improvement in the right base opacities noted on the prior chest x-ray of August 25, while the left base remains similar in appearance. Pleural calcifications are present on the right side, both posterior and along the hemidiaphragm. Reviewed, Interpreted and Dictated by Scooby George III, MD Transcribed by Jes Gunderson Authenticated and [facility]
[2023-12-08 15:30] LABS: Adenovirus,PCR Not Detected (NotDetected); Coronavirus 19, PCR Not Detected (NotDetected); Coronavirus 229E Not Detected (NotDetected); Coronavirus NL63 Not Detected (NotDetected); Coronavirus OC43 Not Detected (NotDetected); Coronovirus HKU1,PCR Not Detected (NotDetected); Human Metapneumovirus Not Detected (NotDetected); Influenza A, PCR Not Detected (NotDetected); Influenza AH1, 2009 Not Detected (NotDetected); Influenza AH1, PCR Not Detected (NotDetected); Influenza AH3,PCR Not Detected (NotDetected); Influenza B, PCR Not Detected (NotDetected); Parainfluenza 1, PCR Not Detected (NotDetected); Parainfluenza 2, PCR Not Detected (NotDetected); Parainfluenza 3, PCR Not Detected (NotDetected); Parainfluenza 4, PCR Not Detected (NotDetected); Respiratory Syncytial Virus Not Detected (NotDetected); Rhinovirus/Enterovirus Not Detected (NotDetected)
== END 2023-12-08 23:59 | disposition home or self-care (01) ==
LOC: RAD 15:11
PROVIDERS: PCP Internal Medicine; Visit Provider Internal Medicine
DX: R06.02 Shortness of breath (principal); J18.9 Pneumonia, unspecified organism; I51.7 Cardiomegaly
CPT/HCPCS: 71046; 87632; 87635

== ENCOUNTER 2023-12-21 17:01 | Outpatient (CLI) | payer MEDICARE, SELFPAY | END 2023-12-21 23:59 | disposition home or self-care (01) | LOC: LAB.DROPOF 17:02 | PROVIDERS: PCP Internal Medicine; Visit Provider Internal Medicine | DX: R30.0 Dysuria (principal) | CPT/HCPCS: 87086 ==

== ENCOUNTER 2024-02-29 09:17 | Outpatient (CLI) | payer MEDICARE, SELFPAY ==
[2024-02-29 19:16] LABS: Basophils % 0.5 % (0.1-2.0); Eosinophils # 0.1 K/mm3 (0.0-0.4); Eosinophils % 1.5 % (0.1-12.0); Hemoglobin 8.9 g/dL (14.1-18.0); Lymphocytes # 0.8 K/mm3 (0.7-4.5); Lymphocytes % 17.2 % (10-50); Mean Corpuscular HGB Conc 32.2 g/dL (31.8-35.4); Mean Corpuscular Hemoglobin 31.5 pg (27.0-31.2); Mean Corpuscular Volume 97.9 fl (80-94); Monocytes # 0.6 K/mm3 (0.1-1.0); Monocytes % 13.6 % (1.7-9.3); Neutrophils # 2.9 K/mm3 (1.8-7.8); Neutrophils % 67.1 % (37.0-80.0); Platelet Count 123 K/mm3 (142-424); Red Blood Count 2.84 M/mm3 (4.60-6.20); Red Cell Distribution Width 14.9 % (11.5-17.5); White Blood Count 4.4 K/mm3 (4.8-10.8)
[2024-02-29 19:21] LABS: Hematocrit 27.8 % (42.0-52.0)
[2024-02-29 19:49] LABS: Chloride 102 mmol/L (98-107); Potassium 5.3 mmoL/L (3.5-5.1); Sodium 134 mmol/L (136-145)
[2024-02-29 19:52] LABS: Alanine Aminotransferase 18 U/L (12-78); Albumin Level 3.9 g/dl (3.5-5.0); Albumin/Globulin Ratio 1.4 (1.1-1.8); Alkaline Phosphatase 58 U/L (38-126); Anion Gap 9.3 mEq/L (5-15); Aspartate Amino Transferase 36 U/L (17-59); Blood Urea Nitrogen 22 mg/dl (9-20); Carbon Dioxide 28 mmol/L (22.0-30.0); Estimated Glomerular Filt Rate 52 ml/min (>60); GFR (African American) 63 ML/MIN (>60); Globulin 2.8 g/dL (1.3-3.2); Total Protein,Serum 6.7 g/dl (6.3-8.2)
[2024-02-29 19:53] LABS: Calcium 9.1 mg/dl (8.4-10.2); Glucose 91 mg/dl (74-100)
[2024-02-29 20:00] LABS: NT Pro Brain Natriuretic Pep. 4080 pg/mL (0-450)
== END 2024-02-29 23:59 | disposition home or self-care (01) ==
LOC: LAB.DROPOF 03-01 09:17
PROVIDERS: PCP Nurse Practitioner Family; Visit Provider Nurse Practitioner Family
DX: N18.9 Chronic kidney disease, unspecified (principal); D64.9 Anemia, unspecified; I50.9 Heart failure, unspecified; R60.0 Localized edema
CPT/HCPCS: 80053; 83880; 85025

== ENCOUNTER 2024-03-02 10:47 | Observation (INO) | payer MEDICARE, SELFPAY ==
[2024-03-02] VITALS (9 sets, daily range): BP systolic 121–169; BP diastolic 67–99; PULSE 64–82; RESP 16–22; TEMP 36.4–36.7; O2SAT 92–100; BMI 27.3; BMI 26.2
--- NOTE | 2024-03-02 | XR_ITS ---
FINAL REPORT CLINICAL HISTORY: dyspnea COMPARISON: 12/08/2023 FINDINGS: SINGLE-VIEW CHEST There is cardiomegaly. Patient is status post median sternotomy. There is a left subclavian pacer. There are worsening right base opacities, favor atelectasis. There is no pneumothorax. IMPRESSION: Worsening right base atelectasis. Reviewed, Interpreted and Dictated by Scooby George III, MD Transcribed by Kathy Mccauley Authenticated and [facility]
--- NOTE | 2024-03-02 11:10 | PC.NURSE ---
Dr. Moses at BS for pt eval
--- NOTE | 2024-03-02 11:10 | PC.NURSE ---
dr horn at bedside
--- NOTE | 2024-03-02 11:20 | PC.NURSE ---
RAD at BS
[2024-03-02 11:22] LABS: Basophils % 0.4 % (0.1-2.0); Eosinophils # 0.1 K/mm3 (0.0-0.4); Eosinophils % 2.4 % (0.1-12.0); Hematocrit 29.1 % (42.0-52.0); Hemoglobin 9.4 g/dL (14.1-18.0); Lymphocytes # 1.1 K/mm3 (0.7-4.5); Lymphocytes % 25.1 % (10-50); Mean Corpuscular HGB Conc 32.2 g/dL (31.8-35.4); Mean Corpuscular Hemoglobin 31.7 pg (27.0-31.2); Mean Corpuscular Volume 98.7 fl (80-94); Mean Platelet Volume 9.2 fl (7.4-10.4); Monocytes # 0.5 K/mm3 (0.1-1.0); Monocytes % 11.5 % (1.7-9.3); Neutrophils # 2.5 K/mm3 (1.8-7.8); Neutrophils % 60.5 % (37.0-80.0); Platelet Count 96 K/mm3 (142-424); Red Blood Count 2.95 M/mm3 (4.60-6.20); Red Cell Distribution Width 14.8 % (11.5-17.5); White Blood Count 4.2 K/mm3 (4.8-10.8)
--- NOTE | 2024-03-02 11:22 | HMH.EDGENADL ---
Discharge Plan Disposition Patient Disposition: Admitted Chief Complaint: Shortness of Breath/Dyspnea Prescriptions Prescriptions: No Action tamsulosin 0.4 mg capsule 0.4 mg PO DAILY fluticasone propionate 50 mcg/actuation spray,suspension 1 spray INTRANASAL BID Qty: 16 5RF (DME) OptiChamber Cyn Lg Mask Spacer See Rx Instructions .ROUTE .MEDSUPPLY Qty: 1 Patient Comments: USE 1 SPACER DIRECTED Rx Instructions: As directed guaifenesin 1,200 mg tablet extended release 12hr 1,200 mg PO BID Qty: 30 2RF furosemide 20 mg tablet 20 mg PO DAILY Qty: 60 2RF famotidine 20 mg tablet 20 mg PO HS Qty: 90 1RF Rx Instructions: TAKE 1 TABLET BY MOUTH AT BEDTIME benzonatate 100 mg capsule 100 mg PO TID PRN (Reason: cough) Qty: 30 3RF Rx Instructions: May take 2 capsules(200mg) at a time if one does not provide relief. pseudoephedrine HCl 30 mg tablet 30 mg PO Q6H PRN (Reason: nasal congestion) Qty: 30 1RF dicyclomine 10 mg capsule 10 mg PO BID PRN (Reason: STOMACH PAIN/DIARRHEA) Qty: 30 2RF Rx Instructions: 1-2 caps po q 6hrs prn nitroglycerin 0.4 mg tablet, sublingual See Rx Instructions .ROUTE .COMPLEX Qty: 25 0RF Dose Instruction: DISSOLVE 1 TABLET UNDER THE TONGUE EVERY 5 MINUTES NEEDED FOR CHEST PAIN; UNTIL RESPONSE; DO NOT EXCEED 3 DOSES PER EPISODE Rx Instructions: DISSOLVE 1 TABLET UNDER THE TONGUE EVERY 5 MINUTES NEEDED FOR CHEST PAIN; UNTIL RESPONSE; DO NOT EXCEED 3 DOSES PER EPISODE albuterol sulfate 90 mcg/actuation HFA aerosol inhaler 1 inh INHALATION Q6H PRN (Reason: shortness of breath or wheezing) 90 Days Qty: 8.5 3RF ipratropium bromide 42 mcg (0.06 %) spray,non-aerosol 2 spray intranasal TID Qty: 15 2RF dutasteride [Avodart] 0.5 mg capsule 0.5 mg PO DAILY Qty: 90 1RF rosuvastatin [Crestor] 20 mg tablet 20 mg PO DAILY Qty: 90 1RF montelukast [Singulair] 10 mg tablet 10 mg PO HS Qty: 90 3RF budesonide-formoterol [Breyna] 160-4.5 mcg/actuation HFA aerosol inhaler 2 puff inhalation BID Qty: 10.2 5RF esomeprazole magnesium [Nexium] 40 mg capsule,delayed release(DR/EC) 40 mg PO DAILY Qty: 90 1RF nebivolol 2.5 mg tablet 2.5 mg PO DAILY Qty: 90 1RF Neosporin (oqn-zov-jpvoh) 3.5mg-400 unit- 5,000 unit/gram ointment 1 applic topical BID Qty: 28.3 0RF Rx Instructions: apply to wound as directed Referrals Follow up/Referrals: Aida Sutherland APRN [Primary Care Provider] - See instructions Clinical Impressions Clinical Impression: Acute upper gastrointestinal bleeding, Anemia, Exertional dyspnea, Chest pain, Acute exacerbation of CHF (congestive heart failure) Discharge ED Provider: Meet Moses General Adult HPI General Chief complaint: Shortness of Breath/Dyspnea Stated complaint: Sent by Aida Sutherland for fluid retention Time Seen by Provider: 03/02/24 11:09 Mode of Arrival: Ambulatory Source of Information: Patient Limitations: No Limitations Description of Symptoms (Recalled from ER Triage Doc. by RN): Patient reports increased fluid buildup in bilateral lower legs and congestion. States he saw. Padma on Tuesday and she recommended he come to the ER then. Patient stated that he wanted to make it through the holiday before coming in. States the SOB and fluid has gotten worse. History of Present Illness HPI narrative: Patient is an 88-year-old male presents today with exertional dyspnea and fatigue. He also states he has had little to no chest pain nothing at the moment. Has had some chronic intermittent abdominal pain but no abdominal pain right now. Tells me that he had his primary care doctor ordered some labs a few days ago on the third was told he was losing blood. After discussing this with me he states that he has had melena for the last several months. No history of GI bleeds or ulcers that he is aware of. His hemoglobin had gone from 11-9 on recent blood work. They told him to come to the hospital on the third however he decided he wanted to wait until after the holiday to come in. No bright red blood per rectum no hematemesis. No history of liver disease or NSAID use. Also complains of increasing lower extremity edema in addition to the shortness of breath. Has a known history of congestive heart failure. Related Data Home Medications Medication Instructions Recorded Confirmed tamsulosin 0.4 mg capsule 0.4 mg PO DAILY URINATION 11/01/19 02/29/24 inhalat.spacing dev,large mask #1 ea 04/27/23 02/29/24 (Savanah Addison [facility] with Large Mask) Previous Rx's Medication Instructions Recorded guaifenesin 1,200 mg tablet, 1,200 mg PO BID #30 tabs 07/05/23 extended release 12 hr dicyclomine 10 mg capsule 10 mg PO BID PRN STOMACH 08/31/23 PAIN/DIARRHEA #30 caps neomycin-bacitracn Zn-polymyx 3.5 1 applic topical BID #28.3 grams 09/30/23 mg-400 unit-5,000 unit/gram top oint (Neosporin (bft-fbh-cveer)) nitroglycerin 0.4 mg sublingual See Rx Instructions .Route 10/18/23 tablet .COMPLEX #25 tabs furosemide 20 mg tablet 20 mg PO DAILY #60 tabs 10/20/23 albuterol sulfate 90 mcg/actuation 1 inh inhalation Q6H PRN shortness 11/04/23 aerosol inhaler of breath or wheezing 90 days #8.5 grams ipratropium bromide 42 mcg (0.06 2 spray intranasal TID #15 mL 11/23/23 %) nasal spray famotidine 20 mg tablet 20 mg PO HS Acid Reflux #90 tabs 12/21/23 fluticasone propionate 50 1 spray intranasal BID ALLERGIES 01/24/24 mcg/actuation nasal #16 grams spray,suspension dutasteride 0.5 mg capsule 0.5 mg PO DAILY urinary retention 01/28/24 (Avodart) #90 caps rosuvastatin 20 mg tablet (Crestor) 20 mg PO DAILY High cholesterol 01/28/24 #90 tabs montelukast 10 mg tablet 10 mg PO HS ALLERGIES #90 tabs 02/01/24 (Singulair) budesonide-formoterol HFA 160 2 puff inhalation BID #10.2 grams 02/15/24 mcg-4.5 mcg/actuation aerosol inhaler (Breyna) esomeprazole magnesium 40 mg 40 mg PO DAILY ACID REFLUX #90 caps 02/15/24 capsule,delayed release (Nexium) nebivolol 2.5 mg tablet 2.5 mg PO DAILY #90 tabs 02/28/24 benzonatate 100 mg capsule 100 mg PO TID PRN cough #30 caps 02/29/24 pseudoephedrine HCl 30 mg tablet 30 mg PO Q6H PRN nasal congestion 02/29/24 #30 tabs Allergies Allergy/AdvReac Type Severity Reaction Status Date / Time atorvastatin [From Lipitor] Allergy Intermediate muscle Verified 02/29/24 14:05 soreness dexlansoprazole Allergy Intermediate Verified 02/29/24 14:05 [From Dexilant] niacin Allergy Intermediate Verified 02/29/24 14:05 omeprazole [From Zegerid] Allergy Intermediate Verified 02/29/24 14:05 sodium bicarbonate Allergy Intermediate Verified 02/29/24 14:05 [From Zegerid] albuterol [From Combivent] Allergy Mild Verified 02/29/24 14:05 amoxicillin [From Prevpac] Allergy Mild Verified 02/29/24 14:05 azelastine [From Astepro] Allergy Mild Verified 02/29/24 14:05 baclofen Allergy Mild Verified 02/29/24 14:05 bisoprolol Allergy Mild Verified 02/29/24 14:05 carvedilol Allergy Mild Verified 02/29/24 14:05 clarithromycin [From Prevpac] Allergy Mild Verified 02/29/24 14:05 clopidogrel [From Plavix] Allergy Mild Verified 02/29/24 14:05 fish oil Allergy Mild Verified 02/29/24 14:05 fluticasone Allergy Mild Verified 02/29/24 14:05 [From Advair Diskus] Hydantoins Allergy Mild Verified 02/29/24 14:05 hydrocodone Allergy Mild Verified 02/29/24 14:05 ipratropium [From Combivent] Allergy Mild Verified 02/29/24 14:05 lansoprazole [From Prevpac] Allergy Mild Verified 02/29/24 14:05 loratadine Allergy Mild Verified 02/29/24 14:05 metoprolol Allergy Mild Verified 02/29/24 14:05 ranolazine [From Ranexa] Allergy Mild very sick Verified 02/29/24 14:05 salmeterol Allergy Mild Verified 02/29/24 14:05 [From Advair Diskus] Sulfa (Sulfonamide Allergy Mild Verified 02/29/24 14:05 Antibiotics) tramadol Allergy Mild Verified 02/29/24 14:05 aspirin Allergy bleeding Verified 02/29/24 14:05 azithromycin Allergy Verified 02/29/24 14:05 cephalexin Allergy Verified 02/29/24 14:05 ciprofloxacin Allergy Verified 02/29/24 14:05 clavulanic acid Allergy Verified 02/29/24 14:05 [From Augmentin] formoterol [From Dulera] Allergy Verified 02/29/24 14:05 metronidazole Allergy Verified 02/29/24 14:05 mometasone furoate Allergy Verified 02/29/24 14:05 [From Dulera] pilocarpine Allergy Verified 02/29/24 14:05 ramipril [From Altace] Allergy Verified 02/29/24 14:05 sulfamethoxazole Allergy Verified 02/29/24 14:05 [From Bactrim] trimethoprim [From Bactrim] Allergy Verified 02/29/24 14:05 fluticasone furoate AdvReac Mild Dizziness Verified 02/29/24 14:05 [From Trelegy Ellipta] lisinopril AdvReac Mild Verified 02/29/24 14:05 umeclidinium AdvReac Mild Dizziness Verified 02/29/24 14:05 [From Trelegy Ellipta] vilanterol AdvReac Mild Dizziness Verified 02/29/24 14:05 [From Trelegy Ellipta] motilium Allergy Intermediate Uncoded 01/30/24 11:25 [facility] Disclaimer: The information contained in this section may have been updated after the patient was seen, as this information can be updated by other users. Medical History (Updated 03/02/24 @ 13:33 by Meet Moses MD) Sinusitis URI (upper respiratory infection) Pneumonia Urinary tract infection Community acquired pneumonia Fall at home Cerumen impaction Sinusitis, acute Acute UTI Chest pain Skin tear Hiatal hernia Arthritis HTN (hypertension) GERD (gastroesophageal reflux disease) Actinic keratosis Acute retention of urine Diabetic foot Prostatitis Inguinal hernia Complicated urinary tract infection Keratosis Onychomycosis Onychodystrophy Overweight with body mass index (BMI) 25.0-29.9 Acquired hammer toes of both feet Acquired hallux valgus of both feet Callus of foot Surgical History History of arthroplasty of right knee History of tonsillectomy H/O hernia repair Hx of cholecystectomy History of coronary artery bypass graft Family History Other No significant family history Social History Smoking Status: Unknown if ever smoked years smoked: 46 alcohol intake: never substance use type: denies use current occupational status: disabled Travel in the last 8 weeks: None household members: spouse housing: house current occupational exposures/hazards: No caffeine: Yes ROS Obtained: Yes All systems reviewed & no additional complaints except as documented Physical Exam General General appearance: alert and in no apparent distress Respiratory Respiratory exam: Present normal lung sounds bilaterally and respiratory distress Cardiovascular Cardiovascular exam: Present regular rate, normal rhythm and other (Bilateral lower extremity edema that is symmetric) Abdominal Exam Abdominal exam: Present soft and other; Absent distention or tenderness exam: Present other (Rectal exam demonstrated brown stool heme developments into the lab) Neurological Exam Neurological exam: Present alert and oriented X3 Medical Decision Making Rj Inquiry Pt receiving controlled substance: No Vital Signs: 03/02/24 10:48 03/02/24 11:30 03/02/24 12:00 Temperature 97.9 F Temperature Source Oral Pulse Rate 67 73 Pulse Rate [Radial] 82 Respiratory Rate 22 16 Blood Pressure 127/73 128/76 Blood Pressure [Right Arm] 121/67 Blood Pressure Mean 93 Blood Pressure Mean [Right Arm] 85 Blood Pressure Source [Right Arm] Automatic Cuff Blood Pressure Position [Right Arm] Sitting 02 Sat by Pulse Oximetry 92 L 100 99 Oxygen Delivery Method Nasal Cannula Nasal Cannula Oxygen Flow Rate (LPM) 4 4 Lab Data Lab results reviewed: Yes I reviewed the patient's lab results. Lab Results 03/02/24 10:59: WBC 4.2 L, RBC 2.95 L, Hgb 9.4 L, Hct 29.1 L, MCV 98.7 H, MCH 31.7 H, MCHC 32.2, RDW 14.8, Plt Count 96 L, MPV 9.2, Neut % (Auto) 60.5, Lymph % (Auto) 25.1, [place] % (Auto) 11.5 H, Eos % (Auto) 2.4, Baso % (Auto) 0.4, Neut # (Auto) 2.5, Lymph # (Auto) 1.1, [place] # (Auto) 0.5, Eos # (Auto) 0.1, Baso # (Auto) 0.0, PT 12.3, INR 1.11 H, APTT 27.2, D-Dimer 1.48 H, Sodium 134 L, Potassium 4.3, Chloride 99, Carbon Dioxide 31 H, Anion Gap 8.3, BUN 23 H, Creatinine 1.30 H, Estimated Creat Clear 44, Estimated GFR 52 L, Est GFR ( Amer) 63, Glucose 113 H, Calcium 9.6, Total Bilirubin 1.3, AST 36, ALT 26 D, Alkaline Phosphatase 50, Troponin I < 0.01, NT-Pro-B Natriuret Pep 4110 H, Total Protein 7.3, Albumin 4.2, Globulin 3.1, Albumin/Globulin Ratio 1.4, Lipase 74 03/02/24 12:20: Stool Occult Blood Negative 03/02/24 10:59 03/02/24 10:59 Orders (Tests/Meds): ED MEDICATIONS Generic Name Dose Route Start Last Admin Trade Name Freq PRN Reason Stop Dose Admin Pantoprazole Sodium 80 mg/ 100 mls @ 100 mls/hr 03/02/24 13:19 Sodium Chloride IV 03/02/24 14:18 ONCE ONE Pantoprazole Sodium 40 mg 03/02/24 21:00 Pantoprazole 40mg Vial IV 04/01/24 20:59 BID TRUONG Discontinued Medications Generic Name Dose Route Start Last Admin Trade Name Freq PRN Reason Stop Dose Admin Furosemide 40 mg 03/02/24 13:19 Furosemide 40mg/4ml Vial IV 03/02/24 13:20 ONCE ONE Pantoprazole Sodium 80 mg/ 100 mls @ 10 mls/hr 03/02/24 14:30 Sodium Chloride IV 03/05/24 14:29 .Q10H TRUONG Iopamidol 70 ml 03/02/24 12:34 03/02/24 12:42 Iopamidol-370 (76%);100ml Bottle IV 03/02/24 12:35 70 ml ONCE ONE Administration Sodium Chloride 50 ml 03/02/24 12:34 03/02/24 12:42 0.9 % Sodium Chloride 50 Ml Vial IV 03/02/24 12:35 50 ml ONCE ONE Administration Sodium Chloride 10 ml 03/02/24 12:34 03/02/24 12:42 Sodium Chloride 0.9% 10ml Syr (Rad Only) IV 03/02/24 12:35 10 ml ONCE ONE Administration ORDERS Category Date Time Status CT angio chest PE protocol Stat Cat Scan 03/02/24 12:16 Taken CXR --portable [XR chest portable] Stat Exams 03/02/24 Completed POCUS Point of Care (ER Only) Stat Exams 03/02/24 11:14 Completed BNP [NT Pro Brain Natriuretic Pep.] Stat Lab 03/02/24 10:59 Completed CBC w/Auto Diff [Complete Blood Count Auto Diff] Stat Lab 03/02/24 10:59 Completed CMP [Comprehensive Metabolic Panel] Stat Lab 03/02/24 10:59 Completed Complete Blood Count Auto Diff AMLAB Lab 03/03/24 06:00 Ordered Comprehensive Metabolic Panel AMLAB Lab 03/03/24 06:00 Ordered D-Dimer Stat Lab 03/02/24 10:59 Completed Lipase Stat Lab 03/02/24 10:59 Completed Magnesium AMLAB Lab 03/03/24 06:00 Ordered Occult Blood,Stool Stat Lab 03/02/24 12:20 Completed PT/PTT Stat Lab 03/02/24 10:59 Completed Trop I [Troponin I] Stat Lab 03/02/24 10:59 Completed Troponin I Q3H Lab 03/02/24 14:15 Ordered Troponin I Q3H Lab 03/02/24 17:15 Ordered Medical Decision Narrative: 88-year-old presented today with exertional dyspnea and fatigue and some chest pain. He is asymptomatic at the moment. No abdominal pain. His hemoglobin has gone from 11-9 on recent labs he also complains of melena most likely has an upper gastrointestinal bleed causing this. His abdominal exam is benign I do not suspect massive blood loss or perforation. Will not get a CT scan at the moment. He is not on any anticoagulants. He has not been on any NSAIDs has no history of liver failure. Superimposed on oxygen delivery been a cause of his dyspnea he also has underlying COPD and CHF likely has very poor reserve with regards to his oxygenation. He does have lower extremity edema likely has a component of CHF is a contributory factor today. Pneumonia pulmonary embolism [place] etc. are also the differential. Will reassess. Reassessment 1:32 PM patient's hemoglobin remained stable at 9 but significant for his baseline around 12. With a history of melena most likely upper GI bleed. I spoke with Dr. Adame who is agreeable to scope this patient today or tomorrow. However patient is alternative explanation for his dyspnea which is most likely a CHF exacerbation elevated BNP there is some pulmonary edema on my personal hypertension a CT scan without any evidence of pneumonia focal consolidation or pulmonary embolism. Patient remains hemodynamically stable labs otherwise unremarkable from emergency standpoint. Spoke with Dr. Trujillo who agrees to admit the patient for further evaluation and management. Critical Care Critical Care Time Critical Care Time: Yes Attestation: On 03/02/24, the high probability of a clinically significant, sudden or life threatening deterioration of the following system(s) required my full and direct attention, intervention and personal management. The time I documented below is in addition to time spent performing reported procedures but includes the following listed in this critical care notation. Total Time Total Critical Care Time: 35
[2024-03-02 11:27] LABS: Alanine Aminotransferase 26 U/L (12-78); Albumin Level 4.2 g/dl (3.5-5.0); Albumin/Globulin Ratio 1.4 (1.1-1.8); Alkaline Phosphatase 50 U/L (38-126); Anion Gap 8.3 mEq/L (5-15); Aspartate Amino Transferase 36 U/L (17-59); Bilirubin,Total 1.3 mg/dl (0.2-1.3); Blood Urea Nitrogen 23 mg/dl (9-20); Calcium 9.6 mg/dl (8.4-10.2); Carbon Dioxide 31 mmol/L (22.0-30.0); Chloride 99 mmol/L (98-107); Creatinine Clearance Estimated 44 mL/min (50-200); Estimated Glomerular Filt Rate 52 ml/min (>60); GFR (African American) 63 ML/MIN (>60); Globulin 3.1 g/dL (1.3-3.2); Glucose 113 mg/dl (74-100); Potassium 4.3 mmoL/L (3.5-5.1); Sodium 134 mmol/L (136-145); Total Protein,Serum 7.3 g/dl (6.3-8.2)
[2024-03-02 11:33] LABS: D-Dimer 1.48 ug/mL (0.0-0.5)
[2024-03-02 11:41] LABS: NT Pro Brain Natriuretic Pep. 4110 pg/mL (0-450)
[2024-03-02 11:43] LABS: Troponin I < 0.01 ng/ml (0.00-0.034)
[2024-03-02 12:07] LABS: Lipase 74 U/L (23-300)
--- NOTE | 2024-03-02 12:16 | CT_ITS ---
FINAL REPORT TECHNIQUE: Then section axial CT images of the chest were obtained with contrast. Three-D reformatted images were also obtained.This study was performed with techniques to keep radiation doses as low as reasonably achievable (ALARA). Individualized dose reduction techniques using automated exposure control or adjustment of mA and/or kV according to the patient''s size were employed. CLINICAL HISTORY: dyspnea, elevated dimer COMPARISON: CT chest 07/28/2022 FINDINGS: There is no evidence of pulmonary embolism. There is no evidence of thoracic aortic aneurysm. The aorta cannot be evaluated for dissection secondary to poor contrast bolus timing. Cardiomegaly is present, and the patient has undergone a prior median sternotomy and aortic valve replacement. A left subclavian pacemaker is present. There are multiple stable mediastinal and hilar mildly enlarged nodes present. There is a loculated pleural effusion on the right, as well as widespread right pleural calcifications, with a few pleural calcifications in the left lung, stable. There is no evidence of pulmonary mass or suspicious nodule. No localized inflammatory process is seen within the lungs. Limited images of the upper abdomen are unremarkable. IMPRESSION: No evidence of pulmonary embolism. There is no evidence of thoracic aortic aneurysm, however the aorta cannot be evaluated for dissection secondary to poor contrast bolus timing. Reviewed, Interpreted and Dictated by Scooby George III, MD Transcribed by Jes Gunderson Authenticated and [facility]
--- NOTE | 2024-03-02 12:17 | PC.NURSE ---
er at bedside
[2024-03-02 12:19] LABS: Activated Partial Thrombo Time 27.2 seconds (22.8-30.6); INR 1.11 (0.9-1.1); Prothrombin Time 12.3 seconds (10.1-12.5)
--- NOTE | 2024-03-02 12:21 | PC.NURSE ---
pt out of room gone to bathroom
[2024-03-02 12:35] LABS: Occult Blood,Stool Negative (Negative)
--- NOTE | 2024-03-02 12:36 | PC.NURSE ---
pt back from CT
--- NOTE | 2024-03-02 12:37 | PC.NURSE ---
Pt returned to room from RAD
[2024-03-02] MEDS: 0.9 % SODIUM CHLORIDE 50 ML VIAL IV (12:42)
[2024-03-02] MEDS: SODIUM CHLORIDE 0.9% 10ML SYR (RAD ONLY) 10 ML IV (12:42)
[2024-03-02] MEDS: IOPAMIDOL-370 (76%);100ML BOTTLE 70 ML IV (12:42)
--- NOTE | 2024-03-02 12:43 | PC.NURSE ---
Dr. Adame pagebridger
--- NOTE | 2024-03-02 12:46 | PC.NURSE ---
Dr. Moses speaking with Dr. Adame
--- NOTE | 2024-03-02 13:31 | PC.NURSE ---
Pt provided with warm blanket
[2024-03-02] MEDS: FUROSEMIDE 40MG/4ML VIAL 40 MG IV ×3 (13:39→22:14)
[2024-03-02] MEDS: PANTOPRAZOLE SODIUM 80 MG in 0.9 % SODIUM CHLORIDE 100 ML 100 MG IV (13:39)
--- NOTE | 2024-03-02 13:39 | HMH.PHAINT1 ---
Pharmacy Intervention Comments: MEDICATION RECONCILIATION COMPLETED ON PATIENT USING EXTERNAL FILL HISTORY FROM PHARMACY AND LIST FROM PCP OFFICE. -TYRONE FINCH, [place]
--- NOTE | 2024-03-02 13:45 | PC.NURSE ---
Report called to GEOVANY Ortega.
--- NOTE | 2024-03-02 13:54 | PC.NURSE ---
arrived by w/c from ED
--- NOTE | 2024-03-02 15:39 | P.HP_ITS ---
History of Present Illness *Admission Date: 03/02/24 *Reason for visit:: Weak, short of breath *History of present illness: 88-year-old male who presents with 2 months of worsening shortness of breath and fatigue. Concern for melenic stools. Hemoglobin low with his PCP at 8.9 two days ago. Given his worsening shortness of breath, sent to the ER for further evaluation. States has been having increased swelling in his legs over the past few days. 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 Follows with cardiology at [facility]. Patient states been wearing oxygen for many years. Previously on 3 L for 2 to 3 years and then increased to 4 L a year ago and 4-1/2 L 6 months ago. States has been having progressing weakness. No nausea or vomiting. No chest pain. On presentation to the ER, he reported due to his weakness and abnormal labs obtained by his PCP on Tuesday. Concerned that he was losing blood. In the ER, hemoglobin marginally better than 2 days ago. Stool occult negative. Given his dyspnea and edema however, workup for CHF initiated. Patient found to be in CHF exacerbation. Medicine consulted for admission and further management. On arrival to the floor, reports fatigue. Was given diuretics, having a hard time urinating. Having good response to diuretics. Continues to feel dyspneic on 4-1/2 L. Alert and oriented x 4. PFSH [facility] Disclaimer: The information contained in this section may have been updated after the patient was seen, as this information can be updated by other users. Medical History Sinusitis URI (upper respiratory infection) Pneumonia Urinary tract infection Community acquired pneumonia Fall at home Cerumen impaction Sinusitis, acute Acute UTI Chest pain Skin tear Hiatal hernia Arthritis HTN (hypertension) GERD (gastroesophageal reflux disease) Actinic keratosis Acute retention of urine Diabetic foot Prostatitis Inguinal hernia Complicated urinary tract infection Keratosis Onychomycosis Onychodystrophy Overweight with body mass index (BMI) 25.0-29.9 Acquired hammer toes of both feet Acquired hallux valgus of both feet Callus of foot Surgical History History of arthroplasty of right knee History of tonsillectomy H/O hernia repair Hx of cholecystectomy History of coronary artery bypass graft Family History Other Family history of cancer No significant family history Social History Smoking Status: Former smoker tobacco type: cigarettes years smoked: 46 alcohol intake: never substance use type: denies use current occupational status: disabled Travel in the last 8 weeks: None household members: spouse housing: house current occupational exposures/hazards: No caffeine: Yes Review of Systems Review of Systems Review of systems (narrative): 14 point review of systems performed, pertinent positives and negatives as per HPI Meds Home Medications and Allergies Home Medications Medication Instructions Recorded Confirmed Type tamsulosin 0.4 mg capsule 0.4 mg PO DAILY 11/01/19 03/02/24 History inhalat.spacing dev,large mask #1 ea 04/27/23 03/02/24 [facility] furosemide 20 mg tablet 20 mg PO DAILY #60 tabs 10/20/23 03/02/24 Rx ipratropium bromide 42 mcg (0.06 2 spray intranasal TID #15 mL 11/23/23 03/02/24 Rx %) nasal spray budesonide-formoterol HFA 160 2 puff inhalation BID #10.2 grams 02/15/24 03/02/24 Rx mcg-4.5 mcg/actuation aerosol inhaler (Breyna) albuterol sulfate 90 mcg/actuation 1 inh inhalation Q6HP PRN 03/02/24 03/02/24 History aerosol inhaler shortness of breath or wheezing benzonatate 100 mg capsule 100 mg PO TIDP PRN cough 03/02/24 03/02/24 History dutasteride 0.5 mg capsule 0.5 mg PO DAILY 03/02/24 03/02/24 History (Avodart) esomeprazole magnesium 40 mg 40 mg PO DAILY 03/02/24 03/02/24 History capsule,delayed release (Nexium) famotidine 20 mg tablet 20 mg PO HS 03/02/24 03/02/24 History fluticasone propionate 50 1 spray intranasal BID 03/02/24 03/02/24 History mcg/actuation nasal spray,suspension montelukast 10 mg tablet 10 mg PO PM 03/02/24 03/02/24 History (Singulair) nebivolol 2.5 mg tablet 2.5 mg PO BID 03/02/24 03/02/24 History nitroglycerin 0.4 mg sublingual 0.4 mg sublingual Q5MINP PRN Chest 03/02/24 03/02/24 History tablet Pain pseudoephedrine HCl 30 mg tablet 30 mg PO Q6HP PRN nasal congestion 03/02/24 03/02/24 History rosuvastatin 20 mg tablet 20 mg PO DAILY 03/02/24 03/02/24 History New Prescriptions to Start Prescriptions: Allergies Allergy/AdvReac Type Severity Reaction Status Date / Time atorvastatin [From Lipitor] Allergy Intermediate muscle Verified 02/29/24 14:05 soreness dexlansoprazole Allergy Intermediate Verified 02/29/24 14:05 [From Dexilant] niacin Allergy Intermediate Verified 02/29/24 14:05 omeprazole [From Zegerid] Allergy Intermediate Verified 02/29/24 14:05 sodium bicarbonate Allergy Intermediate Verified 02/29/24 14:05 [From Zegerid] albuterol [From Combivent] Allergy Mild Verified 02/29/24 14:05 amoxicillin [From Prevpac] Allergy Mild Verified 02/29/24 14:05 azelastine [From Astepro] Allergy Mild Verified 02/29/24 14:05 baclofen Allergy Mild Verified 02/29/24 14:05 bisoprolol Allergy Mild Verified 02/29/24 14:05 carvedilol Allergy Mild Verified 02/29/24 14:05 clarithromycin [From Prevpac] Allergy Mild Verified 02/29/24 14:05 clopidogrel [From Plavix] Allergy Mild Verified 02/29/24 14:05 fish oil Allergy Mild Verified 02/29/24 14:05 fluticasone Allergy Mild Verified 02/29/24 14:05 [From Advair Diskus] Hydantoins Allergy Mild Verified 02/29/24 14:05 hydrocodone Allergy Mild Verified 02/29/24 14:05 ipratropium [From Combivent] Allergy Mild Verified 02/29/24 14:05 lansoprazole [From Prevpac] Allergy Mild Verified 02/29/24 14:05 loratadine Allergy Mild Verified 02/29/24 14:05 metoprolol Allergy Mild Verified 02/29/24 14:05 ranolazine [From Ranexa] Allergy Mild very sick Verified 02/29/24 14:05 salmeterol Allergy Mild Verified 02/29/24 14:05 [From Advair Diskus] Sulfa (Sulfonamide Allergy Mild Verified 02/29/24 14:05 Antibiotics) tramadol Allergy Mild Verified 02/29/24 14:05 aspirin Allergy bleeding Verified 02/29/24 14:05 azithromycin Allergy Verified 02/29/24 14:05 cephalexin Allergy Verified 02/29/24 14:05 ciprofloxacin Allergy Verified 02/29/24 14:05 clavulanic acid Allergy Verified 02/29/24 14:05 [From Augmentin] formoterol [From Dulera] Allergy Verified 02/29/24 14:05 metronidazole Allergy Verified 02/29/24 14:05 mometasone furoate Allergy Verified 02/29/24 14:05 [From Dulera] pilocarpine Allergy Verified 02/29/24 14:05 ramipril [From Altace] Allergy Verified 02/29/24 14:05 sulfamethoxazole Allergy Verified 02/29/24 14:05 [From Bactrim] trimethoprim [From Bactrim] Allergy Verified 02/29/24 14:05 fluticasone furoate AdvReac Mild Dizziness Verified 02/29/24 14:05 [From Trelegy Ellipta] lisinopril AdvReac Mild Verified 02/29/24 14:05 umeclidinium AdvReac Mild Dizziness Verified 02/29/24 14:05 [From Trelegy Ellipta] vilanterol AdvReac Mild Dizziness Verified 02/29/24 14:05 [From Trelegy Ellipta] motilium Allergy Intermediate Uncoded 01/30/24 11:25 Exam Data for Last 24 hours Vital signs and Labs for Last 24 Hours: Temp Pulse Resp BP Pulse Ox O2 Del Method O2 Flow Rate 97.6 F 74 19 153/99 H 100 Nasal Cannula 4 03/02/24 14:22 03/02/24 14:22 03/02/24 14:22 03/02/24 14:22 03/02/24 15:14 03/02/24 15:14 03/02/24 15:14 Laboratory Results - last 24 hr 03/02/24 10:59: WBC 4.2 L, RBC 2.95 L, Hgb 9.4 L, Hct 29.1 L, MCV 98.7 H, MCH 31.7 H, MCHC 32.2, RDW 14.8, Plt Count 96 L, MPV 9.2, Neut % (Auto) 60.5, Lymph % (Auto) 25.1, [place] % (Auto) 11.5 H, Eos % (Auto) 2.4, Baso % (Auto) 0.4, Neut # (Auto) 2.5, Lymph # (Auto) 1.1, [place] # (Auto) 0.5, Eos # (Auto) 0.1, Baso # (Auto) 0.0, PT 12.3, INR 1.11 H, APTT 27.2, D-Dimer 1.48 H, Sodium 134 L, Potassium 4.3, Chloride 99, Carbon Dioxide 31 H, Anion Gap 8.3, BUN 23 H, Cre atinine 1.30 H, Estimated Creat Clear 44, Estimated GFR 52 L, Est GFR ( Amer) 63, Glucose 113 H, Calcium 9.6, Total Bilirubin 1.3, AST 36, ALT 26 D, Alkaline Phosphatase 50, Troponin I < 0.01, NT-Pro-B Natriuret Pep 4110 H, Total Protein 7.3, Albumin 4.2, Globulin 3.1, Albumin/Globulin Ratio 1.4, Lipase 74 03/02/24 12:20: Stool Occult Blood Negative I & O for Last 24 hours: Intake & Output 02/28/24 02/29/24 03/01/24 03/02/24 23:59 23:59 23:59 23:59 Output Total 0 / 0 Balance 0 / 0 Weight 78.29 kg Constitutional Constitutional: no acute distress, average body habitus, chronically ill appearing and cooperative *Routine HEENT Exam Head: Present normocephalic Eye: Present EOMI and PERRL ENT: Present mucous membranes moist *Routine Neck Exam Neck: Present supple; Absent lymphadenopathy *Routine Respiratory Exam Respiratory: Present crackles (diffuse in bases); Absent rhonchi or wheezes *Routine Cardiovascular Exam Cardiovascular: Present RRR and murmur *Routine Abdominal Exam Abdominal: Present soft and normoactive bowel sounds; Absent tenderness *Routine Rectal Exam Rectal:: deferred *Routine Genitalia Exam Genitalia:: deferred *Routine Extremities Exam Extremities: Present edema (3+ to knees); Absent cyanosis or clubbing *Routine Skin Exam Skin: Present intact and warm; Absent rash *Routine Neurological Exam Neurological: Present alert, oriented X3 and moving all extremities; Absent altered mental status Assessment and Plan *Assessment and plan (1) Acute exacerbation of CHF (congestive heart failure): Status: Acute Category: Medical Code(s): I50.9 - Heart failure, unspecified (2) Exertional dyspnea: Status: Acute Category: Medical Code(s): R06.09 - Other forms of dyspnea (3) Anemia: Status: Acute Category: Medical Code(s): D64.9 - Anemia, unspecified (4) Leg edema: Problem Comment: BLE Status: Acute Category: Medical Code(s): R60.0 - Localized edema (5) CKD (chronic kidney disease): Status: Acute Category: Medical Code(s): N18.9 - Chronic kidney disease, unspecified (6) BPH (benign prostatic hyperplasia): Status: Acute Qualifiers: Lower urinary tract symptom detail: urinary retention Lower urinary tract symptom presence: symptoms present Qualified Code(s): N40.1 - Benign prostatic hyperplasia with lower urinary tract symptoms; R33.8 - Other retention of urine Category: Medical Code(s): N40.0 - Benign prostatic hyperplasia without lower urinary tract symptoms (7) History of prosthetic aortic valve: Status: Acute Category: Surgical Code(s): Z95.2 - Presence of prosthetic heart valve (8) Cardiac pacemaker in situ: Status: Acute Category: Medical Code(s): Z95.0 - Presence of cardiac pacemaker (9) Pulmonary edema: Status: Acute Category: Medical Code(s): J81.1 - Chronic pulmonary edema Plan 88-year-old male with cardiac history of aortic valve replacement 7 years ago, pacemaker dependence, worsening shortness of breath and edema. Found to be anemic in the ER. Discussed case with ER physician, request admission for management of anemia, further workup for possible GI bleed, and treatment of CHF exacerbation. I agreed to admit for further management. Initiated on scheduled diuretics. Strict output monitoring. Necessitating inpatient admission due to his significant dyspnea and need for IV diuretics. Problems addressed as follows: Acute exacerbation of CHF Acute on chronic hypoxemic respiratory failure -Unclear if patient's baseline EF. Will obtain records from [facility]. Concern for reduced ejection fraction given cardiomegaly on chest imaging and presence of pacemaker. -Lasix IV 40 mg twice daily. Responding well to initial dose. Strict output monitoring -Will obtain echo Tuesday if patient still admitted. -Strict monitoring of electrolytes and kidney function given fluid shifts and risk for electrolyte disturbances. - Sodium 134, potassium 4.3, BUN 23 creatinine 1.3 which appears to be his baseline. I have ordered CBC, CMP, magnesium for the morning. -Supplemental oxygen as needed, goal sats greater 90%. Currently on 4-1/2 L Anemia Hemoglobin 9.4, level was 8.92 days ago. Platelets 96. Holding on anticoagulation in the setting of thrombocytopenia and suspected GI bleed. Initiated on pantoprazole 40 mg twice daily after 80 mg IV load on admission. Melenic stools prior to admission. Stool occult negative. Will hold on surgery consult pending serial H&H. Will address problem above prior to considering scope unless patient has active signs of bleeding. Transfusion threshold hemoglobin less than 7. BPH: Continue home tamsulosin and dutasteride. COPD: Continue DuoNebs as needed every 6 hours. Continue twice a day long- acting ICS/LABA inhaler; continue singular 10 mg daily Hypertension: Continue nebivolol 2.5 mg twice daily Hyperlipidemia: Continue Crestor 20 mg daily Full code VTE contraindicated in suspected GI bleed and anemia Cardiac diet
[2024-03-02 16:05] LABS: Troponin I < 0.01 ng/ml (0.00-0.034)
[2024-03-02 17:55] LABS: Troponin I < 0.01 ng/ml (0.00-0.034)
--- NOTE | 2024-03-02 18:19 | PC.NURSE ---
pt has been pleasant in his time on the floor. hernandez placed per dr orders due to need for strict I & O from diuresing. pt has 2+ pitting edema in the lower calf area. crackles heard in bilateral bases and anterior right. pt is very independent and is a standby assist. pt has recently been complaining of leg cramps that are relieved by standing/ambulation. dinner tray was consumed and tolerated well. he is resting in bed with call light in reach.
[2024-03-02] MEDS: PANTOPRAZOLE 40MG VIAL 40 MG IV (20:46)
[2024-03-02 22:38] LABS: Chloride 96 mmol/L (98-107)
[2024-03-02 22:39] LABS: Potassium 4.4 mmoL/L (3.5-5.1); Sodium 135 mmol/L (136-145)
[2024-03-02 22:42] LABS: Anion Gap 9.4 mEq/L (5-15); Blood Urea Nitrogen 24 mg/dl (9-20); Calcium 9.7 mg/dl (8.4-10.2); Carbon Dioxide 34 mmol/L (22.0-30.0); Creatinine Clearance Estimated 37 mL/min (50-200); Estimated Glomerular Filt Rate 44 ml/min (>60); GFR (African American) 53 ML/MIN (>60); Glucose 90 mg/dl (74-100)
[2024-03-03] VITALS: BP 135/65; PULSE 70; RESP 26; TEMP 36.6; O2SAT 95
[2024-03-03 04:00] VITALS: BP 131/67; PULSE 78; RESP 20; TEMP 36.4; O2SAT 98; BMI 24.1
--- NOTE | 2024-03-03 06:10 | PC.NURSE ---
Alert and oriented. Ambulates standby. Murphy in place and draining clear yellow urine. Pt did complain of legs cramps, only help was for patient to stand up and work them out. Pt has had no other complaints. Edema noted to BLE. 2L NC, O2 sat >90%. Bed alarm on. Call light in reach.
[2024-03-03 07:23] LABS: Basophils % 0.5 % (0.1-2.0); Eosinophils # 0.2 K/mm3 (0.0-0.4); Eosinophils % 3.3 % (0.1-12.0); Hematocrit 28.2 % (42.0-52.0); Hemoglobin 9.1 g/dL (14.1-18.0); Lymphocytes # 1.1 K/mm3 (0.7-4.5); Lymphocytes % 19.1 % (10-50); Mean Corpuscular HGB Conc 32.1 g/dL (31.8-35.4); Mean Corpuscular Hemoglobin 31.5 pg (27.0-31.2); Mean Corpuscular Volume 98.2 fl (80-94); Mean Platelet Volume 9.5 fl (7.4-10.4); Monocytes # 0.9 K/mm3 (0.1-1.0); Monocytes % 15.8 % (1.7-9.3); Neutrophils # 3.5 K/mm3 (1.8-7.8); Neutrophils % 61.3 % (37.0-80.0); Platelet Count 123 K/mm3 (142-424); Red Blood Count 2.87 M/mm3 (4.60-6.20); White Blood Count 5.7 K/mm3 (4.8-10.8)
[2024-03-03 07:36] LABS: Alanine Aminotransferase 21 U/L (12-78); Albumin Level 3.8 g/dl (3.5-5.0); Albumin/Globulin Ratio 1.3 (1.1-1.8); Alkaline Phosphatase 56 U/L (38-126); Anion Gap 5.6 mEq/L (5-15); Aspartate Amino Transferase 32 U/L (17-59); Bilirubin,Total 1.3 mg/dl (0.2-1.3); Blood Urea Nitrogen 23 mg/dl (9-20); Calcium 9.6 mg/dl (8.4-10.2); Carbon Dioxide 38 mmol/L (22.0-30.0); Chloride 95 mmol/L (98-107); Creatinine Clearance Estimated 37 mL/min (50-200); Estimated Glomerular Filt Rate 48 ml/min (>60); GFR (African American) 58 ML/MIN (>60); Globulin 2.9 g/dL (1.3-3.2); Glucose 84 mg/dl (74-100); Magnesium 1.8 mg/dl (1.6-2.3); Potassium 3.6 mmoL/L (3.5-5.1); Sodium 135 mmol/L (136-145); Total Protein,Serum 6.7 g/dl (6.3-8.2)
[2024-03-03 08:00] VITALS: BP 141/71; PULSE 74; RESP 17; TEMP 36.6; O2SAT 96
--- NOTE | 2024-03-03 08:10 | EXP.ACUTE.PN ---
Subjective *Date: 03/03/24 *Time: 08:37 Medical Exam Vital signs and Labs for Last 24 Hours: Vital Signs Temp Pulse Pulse Resp BP BP Pulse Ox 03/03/24 06:50 03/03/24 05:00 03/03/24 04:00 97.6 F 78 20 131/67 98 03/03/24 04:00 97.6 F 78 20 131/67 98 03/03/24 03:00 03/03/24 01:00 03/03/24 00:00 97.8 F 70 26 H 135/65 95 03/02/24 23:00 03/02/24 21:00 03/02/24 20:00 03/02/24 20:00 97.9 F 64 20 133/72 100 03/02/24 18:31 03/02/24 16:47 03/02/24 15:55 97.7 F 70 19 169/82 H 99 03/02/24 15:14 100 03/02/24 15:00 03/02/24 14:22 97.6 F 74 19 153/99 H 100 03/02/24 13:53 98.1 F 72 16 148/76 H 03/02/24 13:30 73 148/86 H 100 03/02/24 12:00 73 16 128/76 99 03/02/24 11:30 67 127/73 100 03/02/24 10:48 97.9 F 82 22 121/67 92 L O2 Del Method O2 Flow Rate 03/03/24 06:50 Nasal Cannula 2 03/03/24 05:00 Nasal Cannula 2 03/03/24 04:00 Nasal Cannula 2 03/03/24 04:00 Nasal Cannula 2 03/03/24 03:00 Nasal Cannula 2 03/03/24 01:00 Nasal Cannula 2 03/03/24 00:00 Nasal Cannula 2 03/02/24 23:00 Nasal Cannula 2 03/02/24 21:00 Nasal Cannula 4 03/02/24 20:00 Nasal Cannula 4 03/02/24 20:00 Nasal Cannula 4 03/02/24 18:31 Nasal Cannula 4 03/02/24 16:47 Nasal Cannula 4 03/02/24 15:55 Nasal Cannula 4 03/02/24 15:14 Nasal Cannula 4 03/02/24 15:00 Room Air 03/02/24 14:22 Nasal Cannula 4 03/02/24 13:53 03/02/24 13:30 Nasal Cannula 4 03/02/24 12:00 03/02/24 11:30 Nasal Cannula 4 03/02/24 10:48 Nasal Cannula 4 Intake and Output 03/02/24 03/03/24 03/03/24 23:59 07:59 15:59 Intake Total 170 / 290 120 / 120 Output Total 3820 / 5620 2600 / 2600 Balance -3650 / -5330 -2480 / -2480 Intake: Intake, Oral Amount 170 / 290 120 / 120 Output: Output, Urine Amount 2220 / 4020 2600 / 2600 Output, Urine Amount (Catheter) 1600 / 1600 Murphy 1600 / 1600 Other: Number of Voids 1 Number of Unmeasured Voids 0 Weight 72.348 kg Patient Weight 03/03/24 23:59 Weight 72.348 kg Laboratory Results - last 24 hr 03/02/24 10:59: WBC 4.2 L, RBC 2.95 L, Hgb 9.4 L, Hct 29.1 L, MCV 98.7 H, MCH 31.7 H, MCHC 32.2, RDW 14.8, Plt Count 96 L, MPV 9.2, Neut % (Auto) 60.5, Lymph % (Auto) 25.1, [place] % (Auto) 11.5 H, Eos % (Auto) 2.4, Baso % (Auto) 0.4, Neut # (Auto) 2.5, Lymph # (Auto) 1.1, [place] # (Auto) 0.5, Eos # (Auto) 0.1, Baso # (Auto) 0.0, PT 12.3, INR 1.11 H, APTT 27.2, D-Dimer 1.48 H, Sodium 134 L, Potassium 4.3, Chloride 99, Carbon Dioxide 31 H, Anion Gap 8.3, BUN 23 H, Creatinine 1.30 H, Estimated Creat Clear 44, Estimated GFR 52 L, Est GFR ( Amer) 63, Glucose 113 H, Calcium 9.6, Total Bilirubin 1.3, AST 36, ALT 26 D, Alkaline Phosphatase 50, Troponin I < 0.01, NT-Pro-B Natriuret Pep 4110 H, Total Protein 7.3, Albumin 4.2, Globulin 3.1, Albumin/Globulin Ratio 1.4, Lipase 74 03/02/24 12:20: Stool Occult Blood Negative 03/02/24 14:45: Troponin I < 0.01 03/02/24 17:24: Troponin I < 0.01 03/02/24 22:20: Sodium 135 L, Potassium 4.4, Chloride 96 L, Carbon Dioxide 34 H, Anion Gap 9.4, BUN 24 H, Creatinine 1.50 H, Estimated Creat Clear 37, Estimated GFR 44 L, Est GFR ( Amer) 53 L, Glucose 90 D, Calcium 9.7 03/03/24 06:30: WBC 5.7 D, RBC 2.87 L, Hgb 9.1 L, Hct 28.2 L, MCV 98.2 H, MCH 31.5 H, MCHC 32.1, RDW 15.0, Plt Count 123 L D, MPV 9.5, Neut % (Auto) 61.3, Lymph % (Auto) 19.1, [place] % (Auto) 15.8 H, Eos % (Auto) 3.3, Baso % (Auto) 0.5, Neut # (Auto) 3.5, Lymph # (Auto) 1.1, [place] # (Auto) 0.9, Eos # (Auto) 0.2, Baso # (Auto) 0.0, Sodium 135 L, Potassium 3.6, Chloride 95 L, Carbon Dioxide 38 H, Anion Gap 5.6, BUN 23 H, Creatinine 1.40 H, Estimated Creat Clear 37, Estimated GFR 48 L, Est GFR ( Amer) 58 L, Glucose 84, Calcium 9.6, Magnesium 1.8, Total Bilirubin 1.3, AST 32, ALT 21, Alkaline Phosphatase 56, Total Protein 6.7, Albumin 3.8, Globulin 2.9, Albumin/Globulin Ratio 1.3 I & O for Labs for Last 24 Hours: Intake & Output 02/29/24 03/01/24 03/02/24 03/03/24 23:59 23:59 23:59 23:59 Intake Total 170 / 290 120 / 120 Output Total 4620 / 5620 2600 / 2600 Balance -4450 / -5330 -2480 / -2480 Weight 78.29 kg 72.348 kg Assessment and Plan *Assessment and plan (1) Acute exacerbation of CHF (congestive heart failure): Status: Acute Qualifiers: Heart failure type: combined systolic and diastolic Qualified Code(s): I50.43 - Acute on chronic combined systolic (congestive) and diastolic (congestive) heart failure Category: Medical Code(s): I50.9 - Heart failure, unspecified (2) Exertional dyspnea: Status: Acute Category: Medical Code(s): R06.09 - Other forms of dyspnea (3) Anemia: Status: Acute Category: Medical Code(s): D64.9 - Anemia, unspecified (4) Leg edema: Problem Comment: BLE Status: Acute Category: Medical Code(s): R60.0 - Localized edema (5) CKD (chronic kidney disease): Status: Acute Category: Medical Code(s): N18.9 - Chronic kidney disease, unspecified (6) BPH (benign prostatic hyperplasia): Status: Acute Qualifiers: Lower urinary tract symptom presence: symptoms present Lower urinary tract symptom detail: urinary retention Qualified Code(s): N40.1 - Benign prostatic hyperplasia with lower urinary tract symptoms; R33.8 - Other retention of urine Category: Medical Code(s): N40.0 - Benign prostatic hyperplasia without lower urinary tract symptoms (7) History of prosthetic aortic valve: Status: Acute Category: Surgical Code(s): Z95.2 - Presence of prosthetic heart valve (8) Cardiac pacemaker in situ: Status: Acute Category: Medical Code(s): Z95.0 - Presence of cardiac pacemaker (9) Pulmonary edema: Status: Acute Category: Medical Code(s): J81.1 - Chronic pulmonary edema (10) History of coronary artery bypass graft: Status: Acute Category: Surgical Code(s): Z95.1 - Presence of aortocoronary bypass graft Plan 88-year-old male with cardiac history of aortic valve replacement 7 years ago, pacemaker dependence, worsening shortness of breath and edema. Found to be anemic in the ER. Discussed case with ER physician, request admission for management of anemia, further workup for possible GI bleed, and treatment of CHF exacerbation. I agreed to admit for further management. Initiated on scheduled diuretics. Strict output monitoring. Necessitating inpatient admission due to his significant dyspnea and need for IV diuretics. Problems addressed as follows: Acute on chronic heart failure with reduced ejection fraction Acute on chronic hypoxemic respiratory failure Ischemic cardiomyopathy -Unclear if patient's baseline EF. Will obtain records from [facility]. Concern for reduced ejection fraction given cardiomegaly on chest imaging and presence of pacemaker. -Lasix IV 40 mg twice daily. Responding well to initial dose. Strict output monitoring -Will obtain echo Tuesday if patient still admitted. -Strict monitoring of electrolytes and kidney function given fluid shifts and risk for electrolyte disturbances. - Sodium 134, potassium 4.3, BUN 23 creatinine 1.3 which appears to be his baseline. I have ordered CBC, CMP, magnesium for the morning. -Supplemental oxygen as needed, goal sats greater 90%. Currently on 4-1/2 L Review of records from [facility] with the following additional cardiac history as follows: History of CABG in and . Heart cath in 2016 with chronic occlusion of distal LAD. Aortic stenosis status post TAVR 10/2016. Status post BiV pacemaker-[place], status post generator change 01/29/2023. 100% A-fib. Not on anticoagulation due to history of anemia and bleeding. Echo 08/17/2021. EF 45 to 50%. Mild concentric LVH. Enlarged right ventricle. Mild to moderate mitral regurg. Anemia Hemoglobin 9.4, level was 8.92 days ago. Platelets 96. Holding on anticoagulation in the setting of thrombocytopenia and suspected GI bleed. Initiated on pantoprazole 40 mg twice daily after 80 mg IV load on admission. Melenic stools prior to admission. Stool occult negative. Will hold on surgery consult pending serial H&H. Will address problem above prior to considering scope unless patient has active signs of bleeding. Transfusion threshold hemoglobin less than 7. BPH: Continue home tamsulosin and dutasteride. COPD: Continue DuoNebs as needed every 6 hours. Continue twice a day long-acting ICS/LABA inhaler; continue singular 10 mg daily Hypertension: Continue nebivolol 2.5 mg twice daily Hyperlipidemia: Continue Crestor 20 mg daily Full code VTE contraindicated in suspected GI bleed and anemia Cardiac diet
[2024-03-03] MEDS: POTASSIUM CHLORIDE 20MEQ TAB 20 MEQ PO (09:18)
[2024-03-03] MEDS: FUROSEMIDE 40MG/4ML VIAL 40 MG IV (09:18)
[2024-03-03] MEDS: CARVEDILOL 3.125MG TABLET 3.125 MG PO (09:18)
[2024-03-03] MEDS: TAMSULOSIN 0.4MG CAPSULE 0.400000000000000022 MG PO (09:18)
[2024-03-03] MEDS: PANTOPRAZOLE 40MG VIAL 40 MG IV (09:19)
[2024-03-03] MEDS: MAGNESIUM SULFATE IN WATER 2 GM/50 ML PIGGYBACK IV (10:11)
--- OUTSIDE RECORDS SUMMARY | 2024-03-03 10:44 | XMS_ITS | Clinical Summary ---
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.72 (ICD-9-CM) Active Jodee Garner Other complications due to other cardiac device, implant, and graft PACEMAKER SITE INFECTION 039666807 (SNOMED CT) Active Jodee Garner Cellulitis and abscess of trunk INFECTION/INFLAM MATORY REACTION DUE TO PACEMAKER 996.61 (ICD-9-CM) Active Jodee Garner Infection and inflammatory reaction due to cardiac device, implant, and graft PACEMAKER 694371658 (SNOMED CT) Active Jodee Garner Cardiac pacemaker in situ ICM - Ischemic Cardiomyopathy 414.8 (ICD-9-CM) Active Jodee Garner Other specified forms of chronic ischemic heart disease COPD 21199043 (SNOMED CT) Active Jodee Garner Chronic obstructive pulmonary disease PCN ALLERGY Z88.0 (ICD-10-CM ) Active Jodee Garner Allergy status to penicillin MULTIPLE ANTIBIOTIC ALLERGIES Z88.1 (ICD-10-CM ) Active Jodee Garner Allergy status to other antibiotic agents SULFA ALLERGY Z88.2 (ICD-10-CM ) Active Jodee Garner Allergy status to sulfonamides Medications Medication Instructions Start Date Stop Date Generic Name [facility] Provider BACTRIM DS 800-160 MG TABS SULFAMETHOXAZOLE-T RIMETHOPRIM 29196064450 Yobani Robin U TAMSULOSIN HCL 0.4 MG CAPS TAMSULOSIN HCL 87573013509 Yobani Robin U CRESTOR 20 MG TABS ROSUVASTATIN CALCIUM [id number] Yobani Robin U BYSTOLIC 5 MG TABS NEBIVOLOL HCL 42665501092 Yobani Robin U SINGULAIR 10 MG TABS MONTELUKAST SODIUM 83492131711 Yobani Robin U METOCLOPRAMIDE HCL 5 MG TABS METOCLOPRAMIDE HCL 22317619595 Yobani Robin U FLOVENT DISKUS 100 MCG/BLIST INHALATION AEROSOL POWDER BREATH ACTIVATED FLUTICASONE PROPIONATE (INHAL) 91462460818 Yobani Robin U NEXIUM 40 MG CPDR ESOMEPRAZOLE MAGNESIUM 46005796887 Yobani Robin U AVODART 0.5 MG CAPS DUTASTERIDE 85069764455 Yobani Robin U DICYCLOMINE HCL 10 MG CAPS DICYCLOMINE HCL 92221447455 Yobani Robin U SYMBICORT 160-4.5 MCG/ACT AERO BUDESONIDE-FORMOTE ROL FUMARATE [id number] Yobani Robin U XYZAL 5 MG ORAL TABLET LEVOCETIRIZINE DIHYDROCHLORIDE [id number] Yobani Robin U Medications Administered No information available. Allergies, Adverse Reactions, Alerts Allergy Name Reaction Description Start Date Severity Statu s Provider ZEGERID Moderate Active Yobani Robin U TRAMADOL HCL Moderate Active Yobain Robin U RANEXA Moderate Active Yobani Robin U PREVPAC Moderate Active Yobani Robin U PLAVIX Moderate Active Yobani Robin U PILOCARPINE HCL Moderate Active Dani duarte W U OXYCODONE HCL Moderate Active Yobani Robin U NIACIN-50 Moderate Active Yobani Robin U LOPRESSOR Moderate Active Yobani Robin U LISINOPRIL Moderate Active Yobani Robin U LIPITOR Moderate Active Yobani Robin U IMDUR Moderate Active Yobani Robin U HYDROCODONE-ACETAMINOPHEN Moderate Act mirta Yobani Robin U FLOVENT DISKUS Moderate Active Yobani Robin U EFFIENT Moderate Active Yobani Robin U DULERA Moderate Active Yobani Robin U DEXILANT Moderate Active Yobani Robin U COZAAR Moderate Active Yobani Robin U COMBIVENT RESPIMAT Moderate Active Yobani Robin U CLARITIN Moderate Active Yobani Robin U CARVEDILOL Moderate Active Yobani Robin U BISOPROLOL FUMARATE Moderate Active Yobani Robin U BACLOFEN Moderate Active Yobani Robin U ASTEPRO Moderate Active Yobani Robin U ASPIRIN Moderate Active Yobani Robin U ALTACE Moderate Active Yobani Robin U ADVAIR DISKUS Moderate Active Yobani Robin U SULFA Moderate Active Yobani Robin U FLAGYL Moderate Active Yobani Robin U DOXYCYCLINE MONOHYDRATE Moderate Activ e Yobani Robin U CEPHALEXIN Moderate Active Yobani Robin U AMOXICILLIN Moderate Active Yobani Robin U Results Date Name Value Unit Range Flag Description Clinical Lists Update: Prelo ad CIGARET SMKG yes Tobacco smoking status SMOK STATUS Former smoker Tob acco smoking status Plan of Care No information available. Procedures No information available. Vital Signs No information available. Immunizations No information available. Advance Directives No information available.
[2024-03-03 12:00] VITALS: BP 119/62; PULSE 68; RESP 16; TEMP 36.6; O2SAT 96
--- NOTE | 2024-03-03 12:21 | P.DS_ITS ---
General Admission date:: 03/02/24 Discharge date: 03/03/24 HPI HPI HPI: 88-year-old male who presents with 2 months of worsening shortness of breath and fatigue. Concern for melenic stools. Hemoglobin low with his PCP at 8.9 two days ago. Given his worsening shortness of breath, sent to the ER for further evaluation. States has been having increased swelling in his legs over the past few days. 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 Follows with cardiology at [facility]. Patient states been wearing oxygen for many years. Previously on 3 L for 2 to 3 years and then increased to 4 L a year ago and 4-1/2 L 6 months ago. States has been having progressing weakness. No nausea or vomiting. No chest pain. On presentation to the ER, he reported due to his weakness and abnormal labs obtained by his PCP on Tuesday. Concerned that he was losing blood. In the ER, hemoglobin marginally better than 2 days ago. Stool occult negative. Given his dyspnea and edema however, workup for CHF initiated. Patient found to be in CHF exacerbation. Medicine consulted for admission and further management. On arrival to the floor, reports fatigue. Was given diuretics, having a hard time urinating. Having good response to diuretics. Continues to feel dyspneic on 4-1/2 L. Alert and oriented x 4. Hospital Course Hospital Course Hospital Course: 88-year-old male with cardiac history of aortic valve replacement 7 years ago, pacemaker dependence, worsening shortness of breath and edema. Found to be anemic in the ER. Discussed case with ER physician, request admission for management of anemia, further workup for possible GI bleed, and treatment of CHF exacerbation. I agreed to admit for further management. Initiated on scheduled diuretics. Strict output monitoring. Necessitating inpatient admission due to his significant dyspnea and need for IV diuretics. Responded well to the recent overnight. -7 L of output. Breathing better. No signs of GI bleed. Stable to discharge home with further management as an outpatient. Admission consistent with CHF exacerbation and volume overload. 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 Treated with aggressive diuresis. Had good response. -7 L since admission. Patient able to wean from 4 L which she has been on for 3 to 4 years down to 2 L with sats 98%. Hemoglobin remained stable. Patient would benefit from more aggressive daily diuresis for fluid management. Increased daily diuretic regimen. Given his improvement, stable to discharge home. Electrolytes acceptable with potassium 3.6, magnesium 1.8. Kidney function at baseline with BUN 23, creatinine 1.4. Supplemented potassium during admission. Initiating spironolactone however at discharge so we will hold on potassium supplementation. Recommend repeat labs with CMP to monitor electrolytes and kidney function when follows up with PCP. Follow-up with PCP and/or pantry goods worker in the next 1 to 2 weeks for further management. Given clinical improvement, stable to discharge home. Anemia Hemoglobin 9.4 at admission, level was 8.9 two days ago. Platelets 96 on admission. Morning of discharge, hemoglobin stable at 9.1. Platelets increased to 123. Patient not on any anticoagulation due to history of anemia. No active signs of bleeding. Initiated on pantoprazole IV twice daily. Will continue oral daily to decrease risk for GI bleed. Defer further workup and management for possible GI blood loss as an outpatient. Patient would like to address his heart failure first. Given the stability in hemoglobin and negative stool guaiac, agree with this plan. Encourage evaluation as an outpatient with surgery or GI to assess for possible gastritis or GI source of blood loss. Given his hemodynamic stability and stability of hemoglobin, will discharge home. BPH: Continue home tamsulosin and dutasteride. COPD: Continue DuoNebs as needed every 6 hours. Continue twice a day long- acting ICS/LABA inhaler; continue singular 10 mg daily Hypertension: Continue nebivolol 2.5 mg twice daily Hyperlipidemia: Continue Crestor 20 mg daily Total time spent on discharge 32 minutes in counseling, documentation, chart review, and direct care with patient. Exam Data for Last 24 hours Vital signs and Labs for Last 24 Hours: Temp Pulse Resp BP Pulse Ox O2 Del Method O2 Flow Rate 98 F 68 16 119/62 96 Nasal Cannula 2 03/03/24 12:00 03/03/24 12:00 03/03/24 12:00 03/03/24 12:00 03/03/24 12:00 03/03/24 11:00 03/03/24 11:00 Laboratory Results - last 24 hr 03/02/24 10:59: PT 12.3, INR 1.11 H, APTT 27.2, Lipase 74 03/02/24 12:20: Stool Occult Blood Negative 03/02/24 14:45: Troponin I < 0.01 03/02/24 17:24: Troponin I < 0.01 03/02/24 22:20: Sodium 135 L, Potassium 4.4, Chloride 96 L, Carbon Dioxide 34 H, Anion Gap 9.4, BUN 24 H, Creatinine 1.50 H, Estimated Creat Clear 37, Estimated GFR 44 L, Est GFR ( Amer) 53 L, Glucose 90 D, Calcium 9.7 03/03/24 06:30: WBC 5.7 D, RBC 2.87 L, Hgb 9.1 L, Hct 28.2 L, MCV 98.2 H, MCH 31.5 H, MCHC 32.1, RDW 15.0, Plt Count 123 L D, MPV 9.5, Neut % (Auto) 61.3, Lymph % (Auto) 19.1, [place] % (Auto) 15.8 H, Eos % (Auto) 3.3, Baso % (Auto) 0.5, Neut # (Auto) 3.5, Lymph # (Auto) 1.1, [place] # (Auto) 0.9, Eos # (Auto) 0.2, Baso # (Auto) 0.0, Sodium 135 L, Potassium 3.6, Chloride 95 L, Carbon Dioxide 38 H, Anion Gap 5.6, BUN 23 H, Creatinine 1.40 H, Estimated Creat Clear 37, Estimated GFR 48 L, Est GFR ( Amer) 58 L, Glucose 84, Calcium 9.6, Magnesium 1.8, Total Bilirubin 1.3, AST 32, ALT 21, Alkaline Phosphatase 56, Total Protein 6.7, Albumin 3.8, Globulin 2.9, Albumin/Globulin Ratio 1.3 I & O for Last 24 hours: Intake & Output 02/29/24 03/01/24 03/02/24 03/03/24 23:59 23:59 23:59 23:59 Intake Total 170 / 290 480 / 480 Output Total 4620 / 5620 2600 / 2600 Balance -4450 / -5330 -0 / -2119 Weight 78.29 kg 72.348 kg Constitutional Constitutional: no acute distress, average body habitus, chronically ill appearing and cooperative *Routine HEENT Exam Head: Present normocephalic Eye: Present EOMI and PERRL ENT: Present mucous membranes moist *Routine Neck Exam Neck: Present supple; Absent lymphadenopathy *Routine Respiratory Exam Respiratory: Present CTA bilaterally; Absent rhonchi, wheezes or crackles *Routine Cardiovascular Exam Cardiovascular: Present RRR and murmur *Routine Abdominal Exam Abdominal: Present soft and normoactive bowel sounds; Absent tenderness *Routine Rectal Exam Patient deferred: visual exam *Routine Exam Patient deferred: penile exam *Routine Extremities Exam Extremities: Present edema (2+ to knees, improved); Absent cyanosis or clubbing *Routine Skin Exam Skin: Present warm; Absent rash *Routine Neurological Exam Neurological: Present alert, oriented X3 and moving all extremities; Absent altered mental status Results Data Completed and Pending Labs on day of discharge: Labs from last 24 hours 03/03/24 03/02/24 03/02/24 06:30 22:20 17:24 WBC 5.7 D RBC 2.87 L Hgb 9.1 L Hct 28.2 L MCV 98.2 H MCH 31.5 H MCHC 32.1 RDW 15.0 Plt Count 123 L D MPV 9.5 Neut % (Auto) 61.3 Lymph % (Auto) 19.1 [place] % (Auto) 15.8 H Eos % (Auto) 3.3 Baso % (Auto) 0.5 Neut # (Auto) 3.5 Lymph # (Auto) 1.1 [place] # (Auto) 0.9 Eos # (Auto) 0.2 Baso # (Auto) 0.0 PT INR APTT Sodium 135 L 135 L Potassium 3.6 4.4 Chloride 95 L 96 L Carbon Dioxide 38 H 34 H Anion Gap 5.6 9.4 BUN 23 H 24 H Creatinine 1.40 H 1.50 H Estimated Creat Clear 37 37 Estimated GFR 48 L 44 L Est GFR ( Amer) 58 L 53 L Glucose 84 90 D Calcium 9.6 9.7 Magnesium 1.8 Total Bilirubin 1.3 AST 32 ALT 21 Alkaline Phosphatase 56 Troponin I < 0.01 Total Protein 6.7 Albumin 3.8 Globulin 2.9 Albumin/Globulin Ratio 1.3 Lipase Stool Occult Blood 03/02/24 03/02/24 03/02/24 14:45 12:20 10:59 WBC RBC Hgb Hct MCV MCH MCHC RDW Plt Count MPV Neut % (Auto) Lymph % (Auto) [place] % (Auto) Eos % (Auto) Baso % (Auto) Neut # (Auto) Lymph # (Auto) [place] # (Auto) Eos # (Auto) Baso # (Auto) PT 12.3 INR 1.11 H APTT 27.2 Sodium Potassium Chloride Carbon Dioxide Anion Gap BUN Creatinine Estimated Creat Clear Estimated GFR Est GFR ( Amer) Glucose Calcium Magnesium Total Bilirubin AST ALT Alkaline Phosphatase Troponin I < 0.01 Total Protein Albumin Globulin Albumin/Globulin Ratio Lipase 74 Stool Occult Blood Negative DS: Diagnosis Discharge Diagnosis (1) Acute exacerbation of CHF (congestive heart failure): Status: Acute Code(s): I50.9 - Heart failure, unspecified Qualifiers: Heart failure type: combined systolic and diastolic Qualified Code(s): I50.43 - Acute on chronic combined systolic (congestive) and diastolic (congestive) heart failure (2) Exertional dyspnea: Status: Acute Code(s): R06.09 - Other forms of dyspnea (3) Anemia: Status: Acute Code(s): D64.9 - Anemia, unspecified (4) Leg edema: Status: Acute Code(s): R60.0 - Localized edema Problem details: BLE (5) CKD (chronic kidney disease): Status: Acute Code(s): N18.9 - Chronic kidney disease, unspecified (6) BPH (benign prostatic hyperplasia): Status: Acute Code(s): N40.0 - Benign prostatic hyperplasia without lower urinary tract symptoms Qualifiers: Lower urinary tract symptom detail: urinary retention Lower urinary tract symptom presence: symptoms present Qualified Code(s): N40.1 - Benign prostatic hyperplasia with lower urinary tract symptoms; R33.8 - Other retention of urine (7) History of prosthetic aortic valve: Status: Acute Code(s): Z95.2 - Presence of prosthetic heart valve (8) Cardiac pacemaker in situ: Status: Acute Code(s): Z95.0 - Presence of cardiac pacemaker (9) Pulmonary edema: Status: Acute Code(s): J81.1 - Chronic pulmonary edema (10) History of coronary artery bypass graft: Status: Acute Code(s): Z95.1 - Presence of aortocoronary bypass graft Meds Home Medications and Allergies Home Medications Medication Instructions Recorded Confirmed Type tamsulosin 0.4 mg capsule 0.4 mg PO DAILY 11/01/19 03/02/24 History inhalat.spacing dev,large mask #1 ea 04/27/23 03/02/24 History ([facility] with Large Mask) ipratropium bromide 42 mcg (0.06 2 spray intranasal TID #15 mL 11/23/23 03/02/24 Rx %) nasal spray budesonide-formoterol HFA 160 2 puff inhalation BID #10.2 grams 02/15/24 03/02/24 Rx mcg-4.5 mcg/actuation aerosol inhaler (Breyna) albuterol sulfate 90 mcg/actuation 1 inh inhalation Q6HP PRN 03/02/24 03/02/24 History aerosol inhaler shortness of breath or wheezing benzonatate 100 mg capsule 100 mg PO TIDP PRN cough 03/02/24 03/02/24 History dutasteride 0.5 mg capsule 0.5 mg PO DAILY 03/02/24 03/02/24 History (Avodart) famotidine 20 mg tablet 20 mg PO HS 03/02/24 03/02/24 History fluticasone propionate 50 1 spray intranasal BID 03/02/24 03/02/24 History mcg/actuation nasal spray,suspension montelukast 10 mg tablet 10 mg PO PM 03/02/24 03/02/24 History (Singulair) nebivolol 2.5 mg tablet 2.5 mg PO BID 03/02/24 03/02/24 History nitroglycerin 0.4 mg sublingual 0.4 mg sublingual Q5MINP PRN Chest 03/02/24 03/02/24 History tablet Pain pseudoephedrine HCl 30 mg tablet 30 mg PO Q6HP PRN nasal congestion 03/02/24 03/02/24 History rosuvastatin 20 mg tablet 20 mg PO DAILY 03/02/24 03/02/24 History furosemide 40 mg tablet (Lasix) 40 mg PO DAILY #30 tabs 03/03/24 Rx pantoprazole 40 mg tablet,delayed 40 mg PO DAILY #30 tabs 03/03/24 Rx release (Protonix) spironolactone 25 mg tablet 25 mg PO DAILY #30 tabs 03/03/24 Rx New Prescriptions to Start Prescriptions: furosemide [Lasix] CassandraGokul pantoprazole [Protonix] Cassandra,Gokul spironolactone Cassandra,Gokul Allergies Allergy/AdvReac Type Severity Reaction Status Date / Time atorvastatin [From Lipitor] Allergy Intermediate muscle Verified 02/29/24 14:05 soreness dexlansoprazole Allergy Intermediate Verified 02/29/24 14:05 [From Dexilant] niacin Allergy Intermediate Verified 02/29/24 14:05 omeprazole [From Zegerid] Allergy Intermediate Verified 02/29/24 14:05 sodium bicarbonate Allergy Intermediate Verified 02/29/24 14:05 [From Zegerid] albuterol [From Combivent] Allergy Mild Verified 02/29/24 14:05 amoxicillin [From Prevpac] Allergy Mild Verified 02/29/24 14:05 azelastine [From Astepro] Allergy Mild Verified 02/29/24 14:05 baclofen Allergy Mild Verified 02/29/24 14:05 bisoprolol Allergy Mild Verified 02/29/24 14:05 carvedilol Allergy Mild Verified 02/29/24 14:05 clarithromycin [From Prevpac] Allergy Mild Verified 02/29/24 14:05 clopidogrel [From Plavix] Allergy Mild Verified 02/29/24 14:05 fish oil Allergy Mild Verified 02/29/24 14:05 fluticasone Allergy Mild Verified 02/29/24 14:05 [From Advair Diskus] Hydantoins Allergy Mild Verified 02/29/24 14:05 hydrocodone Allergy Mild Verified 02/29/24 14:05 ipratropium [From Combivent] Allergy Mild Verified 02/29/24 14:05 lansoprazole [From Prevpac] Allergy Mild Verified 02/29/24 14:05 loratadine Allergy Mild Verified 02/29/24 14:05 metoprolol Allergy Mild Verified 02/29/24 14:05 ranolazine [From Ranexa] Allergy Mild very sick Verified 02/29/24 14:05 salmeterol Allergy Mild Verified 02/29/24 14:05 [From Advair Diskus] Sulfa (Sulfonamide Allergy Mild Verified 02/29/24 14:05 Antibiotics) tramadol Allergy Mild Verified 02/29/24 14:05 aspirin Allergy bleeding Verified 02/29/24 14:05 azithromycin Allergy Verified 02/29/24 14:05 cephalexin Allergy Verified 02/29/24 14:05 ciprofloxacin Allergy Verified 02/29/24 14:05 clavulanic acid Allergy Verified 02/29/24 14:05 [From Augmentin] formoterol [From Dulera] Allergy Verified 02/29/24 14:05 metronidazole Allergy Verified 02/29/24 14:05 mometasone furoate Allergy Verified 02/29/24 14:05 [From Dulera] pilocarpine Allergy Verified 02/29/24 14:05 ramipril [From Altace] Allergy Verified 02/29/24 14:05 sulfamethoxazole Allergy Verified 02/29/24 14:05 [From Bactrim] trimethoprim [From Bactrim] Allergy Verified 02/29/24 14:05 fluticasone furoate AdvReac Mild Dizziness Verified 02/29/24 14:05 [From Trelegy Ellipta] lisinopril AdvReac Mild Verified 02/29/24 14:05 umeclidinium AdvReac Mild Dizziness Verified 02/29/24 14:05 [From Trelegy Ellipta] vilanterol AdvReac Mild Dizziness Verified 02/29/24 14:05 [From Trelegy Ellipta] motilium Allergy Intermediate Uncoded 01/30/24 11:25 Discharge Plan Disposition Patient Disposition: Home, Self-Care Condition: Fair Follow up Plan Follow up with: Greta Boone MD [Referring] - 1 week (please call for appointment ) Aida Sutherland APRN [Primary Care Provider] - Enter time for follow up (please call for appointment ) Prescriptions/Medication Reconciliation: New pantoprazole [Protonix] 40 mg tablet,delayed release (DR/EC) 40 mg PO DAILY Qty: 30 0RF spironolactone 25 mg tablet 25 mg PO DAILY Qty: 30 0RF furosemide [Lasix] 40 mg tablet 40 mg PO DAILY Qty: 30 0RF Continued tamsulosin 0.4 mg capsule 0.4 mg PO DAILY (DME) Savanah Addison Lg Mask Spacer See Rx Instructions .ROUTE .MEDSUPPLY Qty: 1 Patient Comments: USE 1 SPACER DIRECTED Rx Instructions: As directed ipratropium bromide 42 mcg (0.06 %) spray,non-aerosol 2 spray intranasal TID Qty: 15 2RF budesonide-formoterol [Breyna] 160-4.5 mcg/actuation HFA aerosol inhaler 2 puff inhalation BID Qty: 10.2 5RF rosuvastatin 20 mg tablet 20 mg PO DAILY Patient Comments: TAKE 1 TABLET BY MOUTH DAILY FOR HIGH CHOLESTEROL famotidine 20 mg tablet 20 mg PO HS benzonatate 100 mg capsule 100 mg PO TIDP PRN (Reason: cough) nitroglycerin 0.4 mg tablet, sublingual 0.4 mg sublingual Q5MINP PRN (Reason: Chest Pain) pseudoephedrine HCl 30 mg tablet 30 mg PO Q6HP PRN (Reason: nasal congestion) montelukast [Singulair] 10 mg tablet 10 mg PO PM albuterol sulfate 90 mcg/actuation HFA aerosol inhaler 1 inh INHALATION Q6HP PRN (Reason: shortness of breath or wheezing) fluticasone propionate 50 mcg/actuation spray,suspension 1 spray INTRANASAL BID dutasteride [Avodart] 0.5 mg capsule 0.5 mg PO DAILY nebivolol 2.5 mg tablet 2.5 mg PO BID Discontinued furosemide 20 mg tablet 20 mg PO DAILY Qty: 60 2RF esomeprazole magnesium [Nexium] 40 mg capsule,delayed release(DR/EC) 40 mg PO DAILY Problem Reconciliation Problems Reviewed?: Yes Patient Discharge Instructions ACTIVITY: Continue current activity DIET: continue same diet Patient Instructions: Anemia, DI for Heart Failure Providers Primary Care Provider: Aida Sutherland Admit Provider: Gokul Trujillo Attending Provider: Gokul Trujillo
--- NOTE | 2024-03-05 13:11 | CARE MANAGER ---
Spoke with patient for follow-up discharge follow-up, no issues noted.
== END 2024-03-03 13:49 | disposition home or self-care (01) ==
LOC: ER 13:33 → 2ND 14:21
PROVIDERS: Nurse Practitioner Acute Care; Admitting Provider Internal Medicine Adolescent Medicine; Emergency Provider Student in an Organized Health Care Education/Training Program; PCP Nurse Practitioner Family; Visit Provider Internal Medicine Adolescent Medicine
DX: R06.02 Shortness of breath; D64.9 Anemia, unspecified; R60.0 Localized edema; N18.9 Chronic kidney disease, unspecified; N40.1 Benign prostatic hyperplasia with lower urinary tract symptoms; Z95.2 Presence of prosthetic heart valve; Z95.0 Presence of cardiac pacemaker; J81.1 Chronic pulmonary edema; I50.43 Acute on chronic combined systolic (congestive) and diastolic (congestive) heart failure; Z95.1 Presence of aortocoronary bypass graft; I12.9 Hypertensive chronic kidney disease with stage 1 through stage 4 chronic kidney disease, or unspecified chronic kidney disease; Z79.899 Other long term (current) drug therapy; Z88.8 Allergy status to other drugs, medicaments and biological substances; J96.21 Acute and chronic respiratory failure with hypoxia; Z99.81 Dependence on supplemental oxygen; J44.9 Chronic obstructive pulmonary disease, unspecified; R33.8 Other retention of urine
CPT/HCPCS: 36415; 71045; 71275; 80048; 80053; 82272; 83690; 83735; 83880; 84484; 85025; 85378; 85610; 85730; 99285; G0328; G0378; J1940; J3475; Q9967

== ENCOUNTER 2024-03-14 10:37 | Outpatient (CLI) | payer MEDICARE, SELFPAY ==
[2024-03-14 18:45] LABS: Basophils % 0.6 % (0.1-2.0); Eosinophils # 0.1 K/mm3 (0.0-0.4); Eosinophils % 2.7 % (0.1-12.0); Hematocrit 28.6 % (42.0-52.0); Hemoglobin 10.1 g/dL (14.1-18.0); Lymphocytes # 1.2 K/mm3 (0.7-4.5); Mean Corpuscular HGB Conc 35.4 g/dL (31.8-35.4); Mean Corpuscular Hemoglobin 34.8 pg (27.0-31.2); Mean Corpuscular Volume 98.3 fl (80-94); Mean Platelet Volume 11.7 fl (7.4-10.4); Monocytes # 0.7 K/mm3 (0.1-1.0); Monocytes % 16.5 % (1.7-9.3); Neutrophils # 2.2 K/mm3 (1.8-7.8); Neutrophils % 52.2 % (37.0-80.0); Platelet Count 135 K/mm3 (142-424); Red Blood Count 2.91 M/mm3 (4.60-6.20); Red Cell Distribution Width 14.8 % (11.5-17.5); White Blood Count 4.2 K/mm3 (4.8-10.8)
[2024-03-14 19:37] LABS: Alanine Aminotransferase 22 U/L (12-78); Albumin Level 4.2 g/dl (3.5-5.0); Albumin/Globulin Ratio 1.4 (1.1-1.8); Alkaline Phosphatase 42 U/L (38-126); Anion Gap 11.4 mEq/L (5-15); Aspartate Amino Transferase 45 U/L (17-59); Bilirubin,Total 1.1 mg/dl (0.2-1.3); Blood Urea Nitrogen 31 mg/dl (9-20); Calcium 9.8 mg/dl (8.4-10.2); Carbon Dioxide 27 mmol/L (22.0-30.0); Chloride 101 mmol/L (98-107); Estimated Glomerular Filt Rate 52 ml/min (>60); GFR (African American) 63 ML/MIN (>60); Globulin 3.1 g/dL (1.3-3.2); Glucose 95 mg/dl (74-100); Potassium 5.4 mmoL/L (3.5-5.1); Sodium 134 mmol/L (136-145); Total Protein,Serum 7.3 g/dl (6.3-8.2)
== END 2024-03-14 23:59 | disposition home or self-care (01) ==
LOC: LAB.DROPOF 03-15 10:37
PROVIDERS: PCP Nurse Practitioner Family; Visit Provider Nurse Practitioner Family
DX: K92.1 Melena (principal); K92.2 Gastrointestinal hemorrhage, unspecified; D64.9 Anemia, unspecified; I50.43 Acute on chronic combined systolic (congestive) and diastolic (congestive) heart failure; R60.0 Localized edema; N18.9 Chronic kidney disease, unspecified
CPT/HCPCS: 80053; 85025

== ENCOUNTER 2024-03-20 08:36 | Day surgery (SDC) | payer MEDICARE, SELFPAY ==
[2024-03-16 14:13] VITALS: BMI 24.9
[2024-03-20 09:37] VITALS: BP 119/66; PULSE 78; RESP 18; TEMP 36.4; O2SAT 93
--- NOTE | 2024-03-20 09:45 | P.PCN_ITS ---
Procedure: Date: 03/20/24 Patient Date of :: 1935 Procedure Performed:: Esophagogastroduodenoscopy with biopsy Indications:: Melena Anemia Performing Provider:: Pascual Zuluaga MD Referring Provider:: . Sedation:: Monitored anesthesia care Procedure:: After informed consent was obtained the patient was taken to the endoscopy suite. Sedation ensued after the patient was transferred to the left lateral d ecubitus position. Pulse, blood pressure, and oxygen saturation were monitored throughout the procedure. The endoscope was advanced beyond the duodenal bulb. Retroflexion within the gastric lumen was accomplished. The gastroscope was carefully removed and the patient was transferred to recovery in stable condition. Please see findings and specimens below for detail. Findings:: Gastroesophageal junction 40 cm Small sliding hiatal hernia Erosive distal gastritis No evidence of active/recent hemorrhage Specimens:: Antral biopsy Recommendations:: Follow-up pathology Erosive gastritis remains possible etiology; however, this is somewhat equi vocal. Discussion with regard to additional evaluation (UGI/SBFT, capsule endoscopy, etc.) will be ongoing. Complications:: No immediate Estimated blood obtained (mL): 1 Colonoscopy Component Colonoscopy Component Was a colonoscopy performed during today's procedure?: No
[2024-03-20 10:04] VITALS: O2SAT 99
[2024-03-20 10:17] VITALS: BP 103/57; PULSE 70; RESP 18; O2SAT 92
--- NOTE | 2024-03-20 10:23 | EXP.ANES.CKL ---
[facility] Disclaimer: The information contained in this section may have been updated after the patient was seen, as this information can be updated by other users. Medical History Vaccine counseling Screening for lipid disorders Screening for hypertension Screening for endocrine disorder Screening for diabetes mellitus Screening for depression Screening for colorectal cancer Exercise counseling Encounter for wellness examination in adult Encounter for vitamin deficiency screening Dietary counseling Sinusitis URI (upper respiratory infection) Pneumonia Urinary tract infection Community acquired pneumonia Fall at home Cerumen impaction Sinusitis, acute Acute UTI Chest pain Skin tear Hiatal hernia Arthritis HTN (hypertension) GERD (gastroesophageal reflux disease) Actinic keratosis Acute retention of urine Diabetic foot Prostatitis Inguinal hernia Complicated urinary tract infection Keratosis Onychomycosis Onychodystrophy Overweight with body mass index (BMI) 25.0-29.9 Acquired hammer toes of both feet Acquired hallux valgus of both feet Callus of foot Surgical History History of arthroplasty of right knee History of tonsillectomy H/O hernia repair Hx of cholecystectomy History of coronary artery bypass graft Family History Other Family history of cancer No significant family history Social History Smoking Status: Former smoker tobacco type: cigarettes years smoked: 46 alcohol intake: never substance use type: denies use current occupational status: disabled Travel in the last 8 weeks: None household members: spouse housing: house current occupational exposures/hazards: No caffeine: Yes [facility] Anesthesia Checklist Patient Identification Patient Identification: Arm Band Structural Data Admitted From: Home Planned Operative Procedure/s: EGD Consent for Planned Operative Procedure(s) Verified: Yes Verified Documents: Surgical Consent and History and Physical NPO Status Verified Time NPO: 00:00 Additional verifications Anesthesia Reactions: No Airway Assessment Mallampati Score:: Class II C-Spine Mobility Assessed: Yes TMJ Mobility Assessed: Yes Dentition: Edentulous Neurological Assessment Level of Consciousness: Awake, Alert and Appropriate Anesthesia Plan Anesthesia Risk discussed: Yes Anesthesia Plan: Verified ASA Class: IV Anesthesia Type: MAC
[2024-03-20 10:27] VITALS: BP 101/58; PULSE 70; RESP 18; O2SAT 94
[2024-03-20 10:37] VITALS: BP 110/63; PULSE 65; RESP 16; O2SAT 98
[2024-03-20 10:42] VITALS: BP 103/67; PULSE 69; RESP 18; O2SAT 99
== END 2024-03-20 10:47 | disposition home or self-care (01) ==
PROVIDERS: PCP Family Medicine; Visit Provider Surgery
PROC: 0DJ08ZZ Inspection of Upper Intestinal Tract, Via Natural or Artificial Opening Endoscopic (ICD-10-PCS; CPT 43235; principal; 2024-03-20 10:00)
DX: K92.1 Melena (principal); K44.9 Diaphragmatic hernia without obstruction or gangrene; K29.00 Acute gastritis without bleeding
CPT/HCPCS: 43239

== ENCOUNTER 2024-03-29 16:49 | Outpatient (CLI) | payer MEDICARE, SELFPAY ==
[2024-03-29 17:00] LABS: Hemoglobin 9.4 g/dL (14.1-18.0)
[2024-03-29 17:15] LABS: Blood Urea Nitrogen 27 mg/dl (9-20); Calcium 9.1 mg/dl (8.4-10.2); Carbon Dioxide 29 mmol/L (22.0-30.0); Chloride 99 mmol/L (98-107); Estimated Glomerular Filt Rate 44 ml/min (>60); GFR (African American) 53 ML/MIN (>60); Glucose 84 mg/dl (74-100); Sodium 135 mmol/L (136-145)
[2024-03-29 23:59] LABS: Iron 94 ug/dL (49-181)
[2024-03-30 00:09] LABS: Total Iron Binding Capacity 287 ug/dL (261-462)
[2024-03-30 00:36] LABS: Ferritin 91.3 ng/ml (17.9-464)
== END 2024-03-29 23:59 | disposition home or self-care (01) ==
LOC: LAB.DROPOF 16:50
PROVIDERS: Surgery; PCP Nurse Practitioner Family; Visit Provider Nurse Practitioner Family
DX: K92.1 Melena (principal); K92.2 Gastrointestinal hemorrhage, unspecified
CPT/HCPCS: 80048; 82728; 83540; 83550; 85014; 85018

== ENCOUNTER 2024-04-12 13:29 | Outpatient (CLI) | payer MEDICARE, SELFPAY ==
[2024-04-12 16:50] LABS: Basophils % 0.3 % (0.1-2.0); Eosinophils # 0.1 K/mm3 (0.0-0.4); Eosinophils % 2.5 % (0.1-12.0); Hematocrit 31.4 % (42.0-52.0); Hemoglobin 9.5 g/dL (14.1-18.0); Lymphocytes # 1.1 K/mm3 (0.7-4.5); Lymphocytes % 24.1 % (10-50); Mean Corpuscular HGB Conc 30.2 g/dL (31.8-35.4); Mean Corpuscular Hemoglobin 31.2 pg (27.0-31.2); Mean Corpuscular Volume 103.2 fl (80-94); Monocytes # 0.5 K/mm3 (0.1-1.0); Monocytes % 11.5 % (1.7-9.3); Neutrophils # 2.8 K/mm3 (1.8-7.8); Neutrophils % 61.5 % (37.0-80.0); Platelet Count 129 K/mm3 (142-424); Red Blood Count 3.04 M/mm3 (4.60-6.20); Red Cell Distribution Width 14.2 % (11.5-17.5); White Blood Count 4.6 K/mm3 (4.8-10.8)
== END 2024-04-12 23:59 | disposition home or self-care (01) ==
LOC: LAB.DROPOF 04-14 16:37
PROVIDERS: PCP Nurse Practitioner Family; Visit Provider Nurse Practitioner Family
DX: D64.9 Anemia, unspecified (principal)
CPT/HCPCS: 85025

== ENCOUNTER 2024-04-19 16:04 | Outpatient (CLI) | payer MEDICARE, SELFPAY ==
--- NOTE | 2024-04-19 16:09 | XR_ITS ---
FINAL REPORT CLINICAL HISTORY: chronic neck pain FINDINGS: SPINE CERVICAL COMPLETE/FLEXION & EXT Five views demonstrate no acute fracture. There is mild disc space narrowing at C3-4. There is no malalignment. There is no evidence of instability with flexion and extension maneuvers. IMPRESSION: Mild disc space narrowing at C3-4. Reviewed, Interpreted and Dictated by Kelvin Martell MD Transcribed by Kathy Mccauley Authenticated and [facility]
== END 2024-04-19 23:59 | disposition home or self-care (01) ==
LOC: RAD 16:06
PROVIDERS: PCP Internal Medicine; Visit Provider Nurse Practitioner Family
DX: M62.838 Other muscle spasm (principal); M54.2 Cervicalgia
CPT/HCPCS: 72052

== ENCOUNTER 2024-06-15 16:57 | Outpatient (CLI) | payer MEDICARE, SELFPAY ==
[2024-06-15 16:42] LABS: Adenovirus,PCR Not Detected (NotDetected); Bordetella Pertussis Not Detected (NotDetected); Chlamydophila Pneumoniae, PCR Not Detected (NotDetected); Coronavirus 19, PCR Not Detected (NotDetected); Coronavirus 229E Not Detected (NotDetected); Coronavirus NL63 Not Detected (NotDetected); Coronavirus OC43 Not Detected (NotDetected); Coronovirus HKU1,PCR Not Detected (NotDetected); Human Metapneumovirus Not Detected (NotDetected); Influenza A, PCR Not Detected (NotDetected); Influenza AH1, 2009 Not Detected (NotDetected); Influenza AH1, PCR Not Detected (NotDetected); Influenza AH3,PCR Not Detected (NotDetected); Influenza B, PCR Not Detected (NotDetected); Mycoplasma Pneumoniae, PCR Not Detected (NotDetected); Parainfluenza 1, PCR Not Detected (NotDetected); Parainfluenza 2, PCR Not Detected (NotDetected); Parainfluenza 3, PCR Not Detected (NotDetected); Parainfluenza 4, PCR Not Detected (NotDetected); Respiratory Syncytial Virus Not Detected (NotDetected); Rhinovirus/Enterovirus Not Detected (NotDetected)
== END 2024-06-15 23:59 | disposition home or self-care (01) ==
LOC: LAB.DROPOF 16:57
PROVIDERS: PCP Internal Medicine; Visit Provider Internal Medicine
DX: J06.9 Acute upper respiratory infection, unspecified (principal); R05.9 Cough, unspecified
CPT/HCPCS: 87265; 87486; 87581; 87632; 87635

== ENCOUNTER 2024-07-11 11:58 | Outpatient (CLI) | payer MEDICARE, SELFPAY ==
[2024-07-11 14:12] LABS: Basophils % 0.6 % (0.1-2.0); Eosinophils # 0.1 K/mm3 (0.0-0.4); Eosinophils % 2.7 % (0.1-12.0); Hematocrit 28.8 % (42.0-52.0); Hemoglobin 9.3 g/dL (14.1-18.0); Lymphocytes # 0.9 K/mm3 (0.7-4.5); Lymphocytes % 22.3 % (10-50); Mean Corpuscular HGB Conc 32.3 g/dL (31.8-35.4); Mean Corpuscular Hemoglobin 32.3 pg (27.0-31.2); Mean Platelet Volume 9.5 fl (7.4-10.4); Monocytes # 0.5 K/mm3 (0.1-1.0); Monocytes % 12.6 % (1.7-9.3); Neutrophils # 2.6 K/mm3 (1.8-7.8); Neutrophils % 61.7 % (37.0-80.0); Platelet Count 108 K/mm3 (142-424); Red Blood Count 2.88 M/mm3 (4.60-6.20); Red Cell Distribution Width 13.8 % (11.5-17.5); White Blood Count 4.1 K/mm3 (4.8-10.8)
[2024-07-11 14:30] LABS: Alanine Aminotransferase 19 U/L (12-78); Albumin Level 4.2 g/dl (3.5-5.0); Albumin/Globulin Ratio 1.8 (1.1-1.8); Alkaline Phosphatase 44 U/L (38-126); Anion Gap 9.9 mEq/L (5-15); Aspartate Amino Transferase 29 U/L (17-59); Bilirubin,Total 0.9 mg/dl (0.2-1.3); Blood Urea Nitrogen 22 mg/dl (9-20); Calcium 9.4 mg/dl (8.4-10.2); Carbon Dioxide 33 mmol/L (22.0-30.0); Chloride 99 mmol/L (98-107); Estimated Glomerular Filt Rate 57 ml/min (>60); GFR (African American) 69 ML/MIN (>60); Globulin 2.3 g/dL (1.3-3.2); Glucose 104 mg/dl (74-100); Potassium 4.9 mmoL/L (3.5-5.1); Sodium 137 mmol/L (136-145); Total Protein,Serum 6.5 g/dl (6.3-8.2)
[2024-07-11 14:43] LABS: NT Pro Brain Natriuretic Pep. 3130 pg/mL (0-450)
[2024-07-11 14:47] LABS: Troponin I < 0.01 ng/ml (0.00-0.034)
== END 2024-07-11 23:59 | disposition home or self-care (01) ==
LOC: LAB.DROPOF 07-12 13:01
PROVIDERS: PCP Internal Medicine; Visit Provider Internal Medicine
DX: Z00.00 Encounter for general adult medical examination without abnormal findings (principal); R07.9 Chest pain, unspecified; I50.9 Heart failure, unspecified; D64.9 Anemia, unspecified
CPT/HCPCS: 80053; 83880; 84484; 85025

== ENCOUNTER 2024-08-16 12:12 | Outpatient (CLI) | payer MEDICARE, SELFPAY ==
--- NOTE | 2024-08-16 12:17 | XR_ITS ---
FINAL REPORT CLINICAL HISTORY: Shortness of breath COMPARISON: 03/02/2024 FINDINGS: 2 views of the chest were obtained. There is an oval density in the right midlung compatible with small loculated right pleural effusion in the major fissure. 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 Mild scarring is noted in the right lung base. No acute pulmonary density is noted. The patient is status post CABG and aortic valve repair. There is a 3-lead the left subclavian pacer device noted. IMPRESSION: Chronic changes without acute findings. Reviewed, Interpreted and Dictated by Abe Andrew MD Transcribed by Magaly Garner Authenticated and [facility]
== END 2024-08-16 23:59 | disposition home or self-care (01) ==
LOC: RAD 12:12
PROVIDERS: PCP Internal Medicine; Visit Provider Internal Medicine
DX: R06.09 Other forms of dyspnea (principal); R06.02 Shortness of breath
CPT/HCPCS: 71046